=== PATIENT | female | born 1975 | race Caucasian/White ===

== ENCOUNTER 2017-01-25 01:07 | Inpatient (IN) | payer MEDICARE, OTHER ==
[2017-01-25 01:07] VITALS: PULSE 79; BMI 41.3
--- NOTE | 2017-01-25 01:32 | C.PDOC ---
History Of Present Illness Patient is a 41 year old female who presents to the ER with a complaint of waking up with shortness of breath that began at 23:00 yesterday. Patient states she has a history of asthma. Patient denies any nausea, vomiting, fever, or chest pain. Chief Complaint (Nursing): Respiratory Distress History Per: Patient Onset/Duration Of Symptoms: Hrs (23:00 yesterday) Current Symptoms Are (Timing): Still Present Associated Symptoms: denies: Fever, Chest Pain Past Medical History Vital Signs: Last Vital Signs Temp 97 F L 01/25/17 01:18 Pulse 107 H 01/25/17 01:18 Resp 37 H 01/25/17 01:25 BP 137/94 H 01/25/17 01:18 Pulse Ox 78 L 01/25/17 03:34 - Medical History PMH: Anxiety, Asthma, Cardia Arrhythmia, CHF, Fibromyalgia, HTN, Hypercholesterolemia, Paranoia Surgical History: Appendectomy, Cholecystectomy - [facility] Procedures OCCUPATIONAL THERAPY (02/09/14) PHYSICAL THERAPY NEC (02/03/14) Family History: States: Unknown Family Hx, Diabetes, Hypertension - Social History Hx Tobacco Use: No Hx Alcohol Use: No Hx Substance Use: No - Immunization History Hx Tetanus Toxoid Vaccination: No Hx Influenza Vaccination: No Hx Pneumococcal Vaccination: No Review Of Systems Except As Marked, All Systems Reviewed And Found Negative. Constitutional: Negative for: Fever, Chills Cardiovascular: Negative for: Chest Pain, Palpitations Respiratory: Positive for: Shortness of Breath. Negative for: Cough Gastrointestinal: Negative for: Nausea, Vomiting, Diarrhea Physical Exam - Physical Exam Appears: Non-toxic Skin: Normal Color, Warm, Dry Head: Atraumatic, Normacephalic Oral Mucosa: Moist Throat: Normal Neck: Normal, Normal ROM Chest: Symmetrical Cardiovascular: Rhythm Regular Respiratory: Rhonchi (Bilateral), Wheezing (Bilateral), Other (Mild shortness of breath) Gastrointestinal/Abdominal: Soft, No Tenderness Neurological/Psych: Oriented x3, Normal Speech, Normal Cognition ED Course And Treatment - Laboratory Results Result Diagrams: 01/25/17 01:45 01/25/17 01:45 ECG: Interpreted By Me, Viewed By Me ECG Rhythm: Sinus Tachycardia (101 bpm), L BBB ECG Interpretation: Abnormal Interpretation Of ECG: Possible left atrial enlargement O2 Sat by Pulse Oximetry: 78 - CT Scan/US CT of chest w/o contrast Other Rad Studies (CT/US): Read By Radiologist CT/US Interpretation: IMPRESSION: 1. Findings compatible with asymmetric pulmonary edema. 2. Bibasilar atelectasis and/or pneumonia. 3. Edema within upper abdominal wall, RIGHT greater than LEFT. 4. Incidental/non-acute findings are described above. Progress Note: EKG, blood work, chest x-ray, nebulizer treatment, and peak flow pre/post tx ordered. Albuterol INH and solu-medrol administered. Disposition Discussed With : Jassi Guzman Doctor Will See Patient In The: Hospital Counseled Patient/Family Regarding: Diagnosis - Disposition Disposition: HOSPITALIZED Disposition Time: 05:04 Condition: STABLE - POA Present On Arrival: None - Clinical Impression Clinical Impression: Dyspnea, Pulmonary edema - Scribe Statement The provider has reviewed the documentation as recorded by the Scribe Jonathan Tang All medical record entries made by the Scribe were at my direction and personally dictated by me. I have reviewed the chart and agree that the record accurately reflects my personal performance of the history, physical exam, medical decision making, and the department course for this patient. I have also personally directed, reviewed, and agree with the discharge instructions and disposition.
[2017-01-25] MEDS ORDERED: Albuterol-Ipratrop 3 mg / 0.5 (3 ml) UD INH STA (01:42)
[2017-01-25 01:48] LABS: BASO # 0.1 K/uL (0.0-0.2); BASO % 0.7 % (0.0-2.0); EOS # 0.5 K/uL (0.0-0.7); HEMATOCRIT 33.7 % (34.0-47.0); LYMPH # 1.8 K/uL (1.0-4.3); LYMPH % 14.8 % (20.0-40.0); MEAN CELL VOLUME 78.2 fL (81.0-99.0); MEAN CORPUSCULAR HEMOGLOBIN 25.1 pg (27.0-31.0); MEAN CORPUSCULAR HGB CONC 32.1 g/dL (33.0-37.0); MEAN PLATELET VOLUME 8.4 fL (7.2-11.7); MONO # 0.6 K/uL (0.0-0.8); MONO % 5.3 % (0.0-10.0); RED CELL DISTRIBUTION WIDTH 14.6 % (11.5-14.5); WHITE BLOOD COUNT 12.2 K/uL (4.8-10.8)
[2017-01-25 01:57] LABS: CHLORIDE 97 mmol/L (98-107); SODIUM 131 mmol/L (132-148)
[2017-01-25 01:59] LABS: AST/SGOT 60 U/L (14-36); BILIRUBIN,TOTAL 0.6 mg/dL (0.2-1.3); CARBON DIOXIDE 24 mmol/L (22-30); GFR AFRICAN-AMERICAN > 60
[2017-01-25 02:00] LABS: ALB/GLOB RATIO 0.9 (1.0-2.1); ALKALINE PHOSPHATASE 84 U/L (38-126); ALT/SGPT 78 U/L (9-52); BLOOD UREA NITROGEN 13 mg/dL (7-17); CALCIUM 7.9 mg/dl (8.6-10.4); GLUCOSE,RANDOM 104 mg/dL (65-105); TOTAL PROTEIN 6.9 g/dL (6.3-8.3)
[2017-01-25] MEDS ORDERED: Albuterol-Ipratrop 3 mg / 0.5 (3 ml) UD ONE (02:18)
[2017-01-25 02:59] LABS: INR 1.1
--- NOTE | 2017-01-25 03:31 | CT ---
EXAM: CT Chest Without Intravenous Contrast CLINICAL HISTORY: 41 years old, female; Signs and symptoms; Shortness of breath; Additional info: Sob/pleural effusion? / infiltrater? TECHNIQUE: Axial computed tomography images of the chest without intravenous contrast. This CT exam was performed using one or more of the following dose reduction techniques: automated exposure control, adjustment of the mA and/or kV according to patient size, and/or use of iterative reconstruction technique. Coronal and sagittal reformatted images were created and reviewed. COMPARISON: CT - CHEST W/O CONTRAST 12/02/2015 2:02:36 PM FINDINGS: Lungs: Mosaic pattern of lung parenchyma with scattered groundglass opacities, RIGHT greater than LEFT. Interlobular septal thickening. Mild patchy peripheral airspace disease within lower lobes. Pleural space: Small bilateral pleural effusions. No pneumothorax. Heart: No cardiomegaly. No significant pericardial effusion. Bones/joints: No acute fracture. Soft tissues: Fluid/stranding within lateral upper abdominal wall, RIGHT greater than LEFT. Vasculature: Unremarkable. No thoracic aortic aneurysm. Lymph nodes: No pathologically enlarged lymph nodes. Liver: Fatty infiltration. Gallbladder and bile ducts: Cholecystectomy. Kidneys and ureters: Small calculus within RIGHT kidney. Stomach and bowel: Postsurgical changes about stomach. IMPRESSION: 1. Findings compatible with asymmetric pulmonary edema. 2. Bibasilar atelectasis and/or pneumonia. 3. Edema within upper abdominal wall, RIGHT greater than LEFT. 4. Incidental/non-acute findings are described above.
[2017-01-25] MEDS ORDERED: Iodixanol 320 MG/ML 100 ML BOTTLE IV ONE (04:27)
--- NOTE | 2017-01-25 05:01 | CT ---
EXAM: CT Angiography Chest With Intravenous Contrast CLINICAL HISTORY: 41 years old, female; Signs and symptoms; Shortness of breath; Additional info: Sob/ elevated d -dimer TECHNIQUE: Axial computed tomographic angiography images of the chest with intravenous contrast using pulmonary embolism protocol. This CT exam was performed using one or more of the following dose reduction techniques: automated exposure control, adjustment of the mA and/or kV according to patient size, and/or use of iterative reconstruction technique. MIP reconstructed images were created and reviewed. Coronal and sagittal reformatted images were created and reviewed. CONTRAST: 100 mL of [id number] administered intravenously. COMPARISON: CT - 2016 3:04 AM FINDINGS: Pulmonary arteries: No definite pulmonary embolism. Aorta: No aneurysm. No dissection. Lungs: Mosaic pattern of lung parenchyma with scattered groundglass/air space opacities, RIGHT greater than LEFT. Findings mildly increased from previous examination. Pleural space: Small bilateral pleural effusions. No pneumothorax. Heart: Mild cardiomegaly. No significant pericardial effusion. Bones/joints: No acute fracture. No dislocation. Soft tissues: Fluid/stranding within lateral upper abdominal wall, RIGHT greater than LEFT. Lymph nodes: No pathologically enlarged lymph nodes. Liver: Fatty infiltration. Gallbladder and bile ducts: Cholecystectomy. Stomach and bowel: Surgical clips about stomach. IMPRESSION: 1. No definite CT evidence of pulmonary embolism. 2. Findings compatible with asymmetric pulmonary edema, mildly increased from previous examination. Superimposed pneumonia not excluded. 3. Incidental/non-acute findings are described above.
--- NOTE | 2017-01-25 06:50 | CP.PCM.HP ---
<Rica Leblanc - Last Filed: 01/25/17 07:44> History of Present Illness - History of Present Illness History of Present Illness: CC: "shortness of breath" 41 year old female with PMHx of lupus, CHF, HTN, fibromyalgia, kidney stones, depression presents with SOB. Patient reports she went to sleep at 7:30 pm last night with no issues and and woke up at 11 pm gasping for air. She admits this has happened in the past. She has not taken any of her medications for the past 2 weeks in "anticipation" of her bariatric surgery that took place 01/22/17. Patient admits to associated cough for 1 week that is productive of green phlegm. Denies leg swelling, fevers, chills, nausea, vomiting, sore throat, nasal congestion. She denies "heart chest pain", but admits to "lung chest pain " associated to pneumonia. Chest pain is present when she coughs and at rest. Pain is described as "soreness/burning" with no radiation. She denies sick contacts or recent travel. PMHx: lupus, CHF, HTN, fibromyalgia, kidney stones, depression. SHx: chucky (1997), laparascopy, lap band (2007), appendectomy (2008), lipoma resection, IVC filter 2003, knee arthroscopy 2012, c section 2005, tubal ligation (2012), ablation (2012), cath 2009, hysterectomy (2013). Allergies: Plaquenil. Social Hx: Denies tobacco, ETOH, drug abuse. Family Hx: mother with DM, maternal and paternal GM with DM. PMD: Dr. Mora Cardio: Dr. Montenegro Pulm: Dr. Olivares Present on Admission - Present on Admission Any Indicators Present on Admission: No Review of Systems - Constitutional Constitutional: absent: Chills, Fever - EENT Eyes: absent: Blurred Vision, Change in Vision - Cardiovascular Cardiovascular: Chest Pain, Chest Pain at Rest, Dyspnea, Dyspnea on Exertion. absent: Leg Edema, Palpitations - Respiratory Respiratory: Cough, Dyspnea, Dyspnea on Exertion, Wheezing - Gastrointestinal Gastrointestinal: Abdominal Pain. absent: Constipation, Diarrhea, Nausea, Vomiting - Genitourinary Genitourinary: absent: Difficulty Urinating, Dysuria - Musculoskeletal Musculoskeletal: absent: Numbness, Tingling - Integumentary Integumentary: Dry Skin. absent: New Lesions - Neurological Neurological: absent: Dizziness, Numbness, Headaches, Tingling, Weakness - Endocrine Endocrine: absent: Fatigue, Palpitations Past Patient History - Infectious Disease Hx of Infectious Diseases: None - Past Medical History & Family History Past Medical History?: Yes - Past Social History Smoking Status: Never Smoked - CARDIAC Hx Cardia Arrhythmia: Yes Hx Congestive Heart Failure: Yes Hx Hypercholesterolemia: Yes Hx Hypertension: Yes - PULMONARY Hx Asthma: Yes - NEUROLOGICAL Hx Neurological Disorder: No - HEENT Hx HEENT Problems: No - ENDOCRINE/METABOLIC Hx Endocrine Disorders: Yes Hx Diabetes Mellitus Type 2: Yes (??) Hx Systemic Lupus Erythematosus: Yes - HEMATOLOGICAL/ONCOLOGICAL Hx Blood Disorders: No - INTEGUMENTARY Hx Dermatological Problems: Yes Hx Eczema: Yes - MUSCULOSKELETAL/RHEUMATOLOGICAL Hx Musculoskeletal Disorders: Yes - GASTROINTESTINAL Hx Gastrointestinal Disorders: No - GENITOURINARY/GYNECOLOGICAL Hx Genitourinary Disorders: No - PSYCHIATRIC Hx Anxiety: Yes Hx Paranoia: Yes Hx Substance Use: No - SURGICAL HISTORY Hx Appendectomy: Yes Hx Cholecystectomy: Yes - ANESTHESIA Hx Anesthesia: Yes Hx Anesthesia Reactions: Yes (Developed rash 2and 1/2 weeks after hip surgery similair to now) Hx Malignant Hyperthermia: No Meds Allergies/Adverse Reactions: Allergies Allergy/AdvReac Type Severity Reaction Status Date / Time propofol Allergy Intermediate RASH Verified 01/27/17 12:38 hydroxychloroquine sulfate Allergy RASH Verified 01/25/17 13:17 [From Plaquenil] FRUITS Allergy Mild SHORTNESS Uncoded 01/25/17 13:17 OF BREATH "anastesia" Allergy RASH Uncoded 01/25/17 13:17 Physical Exam - Constitutional Appears: No Acute Distress - Head Exam Head Exam: NORMAL INSPECTION, NORMOCEPHALIC - Eye Exam Eye Exam: EOMI, Normal appearance Pupil Exam: NORMAL ACCOMODATION - ENT Exam ENT Exam: Mucous Membranes Moist, Normal Exam - Neck Exam Neck exam: Positive for: Full Rom, Normal Inspection - Respiratory Exam Respiratory Exam: Rales, Rhonchi. absent: Wheezes - Cardiovascular Exam Cardiovascular Exam: REGULAR RHYTHM, +S1, +S2 - GI/Abdominal Exam GI & Abdominal Exam: Normal Bowel Sounds, Soft. absent: Distended, Tenderness - Extremities Exam Extremities exam: Positive for: full ROM, normal inspection. Negative for: tenderness - Back Exam Back exam: NORMAL INSPECTION - Neurological Exam Neurological exam: Alert, Oriented x3 - Psychiatric Exam Psychiatric exam: Normal Affect, Normal Mood - Skin Skin Exam: Dry, Normal Color, Warm Results - Vital Signs Recent Vital Signs: Last Vital Signs Temp 97 F L 01/25/17 01:18 Pulse 94 H 01/25/17 06:11 Resp 23 01/25/17 06:11 BP 118/75 01/25/17 06:11 Pulse Ox 99 01/25/17 06:11 - Labs Result Diagrams: 01/25/17 01:45 01/25/17 01:45 Assessment & Plan (1) CHF exacerbation Assessment and Plan: Patient with history of CHF, off meds for 2 weeks. Pro BNP on admission 2220. CXR shows cardiomegaly. f/u ECHO. ECHO 08/2015 showed EF ~50%. Start the following medications: Lasix 60 mg IVP daily Coreg 25 mg PO BID Losartan 100 mg PO daily I/O's Daily weights Low Sodium Diet Status: Acute (2) Chest pain Assessment and Plan: PEDRO on admission negative. EKG on admission- sinus tach 101 bpm, LBBB. f/u PEDRO X2 Q8H f/u EKG X2 Q8H ASA 325 mg PO daily Coreg 25 mg PO BID Status: Acute (3) Dyspnea Assessment and Plan: D- Dimer elevated. Chest CTA: 1. No definite CT evidence of pulmonary embolism. 2. Findings compatible with asymmetric pulmonary edema, mildly increased from previous examination. Superimposed pneumonia not excluded. 3. Incidental/non- acute findings are described above. Status: Acute (4) Elevated LFTs Assessment and Plan: f/u hep panel Status: Acute (5) H/O systemic lupus erythematosus (SLE) Assessment and Plan: Continue home med: Azathioprine 50 mg PO daily. Status: Acute (6) HTN (hypertension) Assessment and Plan: Start the following medications: Lasix 60 mg IVP daily Coreg 25 mg PO BID (home med) Losartan 100 mg PO daily (home med) Status: Acute (7) Depression Assessment and Plan: Effexor 225 mg PO Daily [id number] mg PO HS Trazodone 50 mg PO HS Status: Acute (8) Anxiety Assessment and Plan: Ativan 1 mg PO TID PRN (Patient takes 2 mg PO BID as home med) Status: Acute (9) History of fibromyalgia Assessment and Plan: Resume home med: Tramadol 50 mg PO TID Status: Acute (10) Prophylactic measure Assessment and Plan: Heparin SC Q12H Pepcid 20 mg PO BID Status: Acute <Jassi Guzman - Last Filed: 02/01/17 19:26> Results - Vital Signs Recent Vital Signs: Last Vital Signs Temp 98.2 F 01/28/17 15:00 Pulse 70 01/28/17 16:00 Resp 20 01/28/17 15:00 BP 101/66 01/28/17 15:00 Pulse Ox 98 01/28/17 15:00 - Labs Result Diagrams: 01/28/17 07:09 01/28/17 07:09 Assessment & Plan - Date & Time Date: 02/01/17 (I have seen and examined the patient. I agree with the findings and plan of care as documented by Dr. Leblanc. Patient with chf exacerbation and chest pain. Also with complaints of SOB. IV lasix. Continue home meds. 2D Echo. ROMIx3 with EKG. Aspirin and Statin. D-dimer elevated. CT angio negative. Monitor for acute changes.) Time: 19:25 Attending/Attestation - Attestation I have personally seen and examined this patient.: Yes I have fully participated in the care of the patient.: Yes I have reviewed all pertinent clinical information: Yes
[2017-01-25] MEDS ORDERED: guaiFENesin DM 200 mg-20 mg/10 ml UD PO PRN (07:53)
--- NOTE | 2017-01-25 08:29 | RAD ---
PROCEDURE: CHEST RADIOGRAPH, 1 VIEW HISTORY: Shortness of breath COMPARISON: 12/23/2016 FINDINGS: LUNGS: Moderate to severe venous congestion with bibasilar airspace opacities. PLEURA: As above. CARDIOVASCULAR: Cardiomegaly. OSSEOUS STRUCTURES: Calcific tendinopathy of the bilateral proximal humeri. VISUALIZED UPPER ABDOMEN: Normal. OTHER FINDINGS: None. IMPRESSION: Moderate to severe venous congestion with bibasilar airspace opacities.
--- NOTE | 2017-01-25 09:13 | CP.PCM.PN ---
<Efra Bowers - Last Filed: 01/25/17 20:29> Subjective - Date & Time of Evaluation Date of Evaluation: 01/25/17 Time of Evaluation: 08:00 - Subjective Subjective: PGY1 Medicine Note Patient seen and examined at bedside. Newly admitted at 7am. Patient with history of asthma, admits to associated cough for 1 week that is productive of green phlegm. C/o chest pain with coughing, described as "soreness/burning" with no radiation. Patient also admits to recent gastric bypass surgery on - admits she was advised by bariatric surgeon to consume low volumes of clear liquids for the next 1-2 weeks (30cc every 15minutes). Denies leg swelling , fevers, chills, nausea, vomiting, sore throat, nasal congestion. Denies sick contacts or recent travel. Objective - Vital Signs/Intake and Output Vital Signs (last 24 hours): Temp Pulse Resp BP Pulse Ox 97.8 F 96 H 20 118/75 96 01/25/17 07:25 01/25/17 07:25 01/25/17 07:25 01/25/17 07:25 01/25/17 07:25 Intake and Output: 01/25/17 01/25/17 06:59 18:59 Output Total 2400 Balance -2400 - Medications Medications: Current Medications Aspirin (Aspirin) 325 mg PO DAILY [facility] Azathioprine (Imuran) 50 mg PO DAILY [facility] Carvedilol (Coreg) 25 mg PO BID [facility] Famotidine (Pepcid) 20 mg PO BID [facility] Furosemide (Lasix) 60 mg IVP DAILY [facility] Gabapentin (Neurontin) 600 mg PO TID [facility] Guaifenesin/Dextromethorphan (Robitussin Dm) 10 ml PO Q4H PRN PRN Reason: Cough and congestion Heparin Sodium (Porcine) (Heparin) 5,000 units SC Q12 [facility] Lorazepam (Ativan) 1 mg PO TID PRN PRN Reason: Anxiety Losartan Potassium (Cozaar) 100 mg PO DAILY [facility] Ondansetron HCl (Zofran Inj) 4 mg IVP Q6 PRN PRN Reason: Nausea/Vomiting Tramadol HCl (Ultram) 50 mg PO TID PRN PRN Reason: pain Trazodone HCl (Desyrel) 50 mg PO HS [facility] Venlafaxine HCl (Effexor Xr) 225 mg PO DAILY [facility] Zolpidem Tartrate (Ambien) 10 mg PO HS [facility] - Labs Labs: PT 11.9 SECONDS (9.7-12.2) 01/25/17 01:45 INR 1.1 01/25/17 01:45 APTT 34 SECONDS (21-34) 01/25/17 01:45 - Additional Findings Additional findings: - Constitutional Appears: No Acute Distress - Head Exam Head Exam: NORMAL INSPECTION, NORMOCEPHALIC - Eye Exam Eye Exam: EOMI, Normal appearance Pupil Exam: NORMAL ACCOMODATION - ENT Exam ENT Exam: Mucous Membranes Moist, Normal Exam - Neck Exam Neck exam: Positive for: Full Rom, Normal Inspection - Respiratory Exam Respiratory Exam: Rales, Rhonchi. absent: Wheezes - Cardiovascular Exam Cardiovascular Exam: REGULAR RHYTHM, +S1, +S2 - GI/Abdominal Exam GI & Abdominal Exam: Normal Bowel Sounds, Soft. absent: Distended, Tenderness - Extremities Exam Extremities exam: Positive for: full ROM, normal inspection. Negative for: tenderness - Back Exam Back exam: NORMAL INSPECTION - Neurological Exam Neurological exam: Alert, Oriented x3 - Psychiatric Exam Psychiatric exam: Normal Affect, Normal Mood - Skin Skin Exam: Dry, Normal Color, Warm Assessment and Plan - Assessment and Plan (Free Text) Assessment: CHF exacerbation 01/25: f/u ECHO (pending read) Patient with history of CHF, off meds for 2 weeks. Pro BNP on admission 2220. CXR shows cardiomegaly. ECHO 08/2015 showed EF ~50%. Start the following medications: Lasix 60 mg IVP daily, Coreg 25 mg PO BID, Losartan 100 mg PO daily I/O's, Daily weights, Low Sodium Diet Status: Acute Chest pain f/u 3rd PEDRO/EKG Cardiology Consult, Dr. Montenegro, f/u recs PEDRO on admission negative. EKG on admission- sinus tach 101 bpm, LBBB. PEDRO/EKG - negative x2 STOP ASA 325 mg PO daily Coreg 25 mg PO BID Status: Acute Dyspnea -Consult Pulmonology, Dr. Olivares, f/u recs D- Dimer elevated. Chest CTA: 1. No definite CT evidence of pulmonary embolism. 2. Findings compatible with asymmetric pulmonary edema, mildly increased from previous examination. Superimposed pneumonia not excluded. 3. Incidental/non- acute findings are described above. Status: Acute Bariatric surgery -Recent gastric bypass surgery on 01/22/17 -Pt advised by bariatric surgeon to consume low volumes of clear liquids for the next 1-2 weeks (30cc every 15minutes). -CLD -HOLD anticoagulation for 7 days s/p bariatric surgery (may resume 01/29) -Hold ASA -Hold Heparin Elevated LFTs 01/25: Hep panel negative for HepA, B, or C Status: Acute HTN (hypertension) Start the following medications: Lasix 60 mg IVP daily Coreg 25 mg PO BID (home med) Losartan 100 mg PO daily (home med) Status: Acute Depression Effexor 225 mg PO Daily [id number] mg PO HS Trazodone 50 mg PO HS Status: Acute Anxiety Ativan 1 mg PO TID PRN (Patient takes 2 mg PO BID as home med) Status: Acute H/O systemic lupus erythematosus (SLE) Continue home med: Azathioprine 50 mg PO daily. Status: Acute History of fibromyalgia Resume home med: Tramadol 50 mg PO TID Status: Acute Prophylactic measure Heparin SC Q12H Pepcid 20 mg PO BID Status: Acute <Efra Herrera H - Last Filed: 01/26/17 12:53> Objective - Vital Signs/Intake and Output Vital Signs (last 24 hours): Temp Pulse Resp BP Pulse Ox 98.0 F 56 L 22 96/57 L 99 01/26/17 12:00 01/26/17 08:00 01/26/17 08:00 01/26/17 11:12 01/26/17 08:00 Intake and Output: 01/26/17 01/26/17 06:59 18:59 Intake Total 0 Output Total 600 Balance -600 - Medications Medications: Current Medications Aspirin (Aspirin) 325 mg PO DAILY [facility] Last Admin: 01/25/17 11:34 Dose: Not Given Azathioprine (Imuran) 50 mg PO DAILY [facility] Last Admin: 01/26/17 10:16 Dose: Not Given Carvedilol (Coreg) 25 mg PO BID [facility] Last Admin: 01/26/17 11:12 Dose: 25 mg Famotidine (Pepcid) 20 mg PO BID [facility] Last Admin: 01/26/17 10:16 Dose: 20 mg Folic Acid (Folic Acid) 1 mg PO DAILY [facility] Last Admin: 01/26/17 10:16 Dose: 1 mg Furosemide (Lasix) 60 mg IVP DAILY [facility] Last Admin: 01/26/17 10:31 Dose: 60 mg Gabapentin (Neurontin) 600 mg PO TID [facility] Last Admin: 01/26/17 10:15 Dose: 600 mg Guaifenesin/Dextromethorphan (Robitussin Dm) 10 ml PO Q4H PRN PRN Reason: Cough and congestion Heparin Sodium (Porcine) (Heparin) 5,000 units SC Q12 [facility] Last Admin: 01/25/17 11:36 Dose: Not Given Lorazepam (Ativan) 1 mg PO TID PRN PRN Reason: Anxiety Losartan Potassium (Cozaar) 100 mg PO DAILY [facility] Last Admin: 01/26/17 11:13 Dose: 100 mg Multivitamins/Minerals (Therapeutic-M Tab) 1 tab PO DAILY [facility] Last Admin: 01/26/17 11:15 Dose: 1 tab Ondansetron HCl (Zofran Inj) 4 mg IVP Q6 PRN PRN Reason: Nausea/Vomiting Last Admin: 01/25/17 16:15 Dose: 4 mg Tramadol HCl (Ultram) 50 mg PO TID PRN PRN Reason: pain Last Admin: 01/26/17 10:15 Dose: 50 mg Trazodone HCl (Desyrel) 50 mg PO HS [facility] Last Admin: 01/25/17 21:45 Dose: 50 mg Venlafaxine HCl (Effexor Xr) 225 mg PO DAILY [facility] Last Admin: 01/26/17 10:16 Dose: 225 mg Zolpidem Tartrate (Ambien) 10 mg PO HS [facility] Last Admin: 01/25/17 21:42 Dose: 10 mg - Labs Labs: 01/26/17 06:38 01/26/17 04:00 PT 11.9 SECONDS (9.7-12.2) 01/25/17 01:45 INR 1.1 01/25/17 01:45 APTT 34 SECONDS (21-34) 01/25/17 01:45 Attending/Attestation - Attestation I have personally seen and examined this patient.: Yes I have fully participated in the care of the patient.: Yes I have reviewed all pertinent clinical information, including history, physical exam and plan: Yes Notes (Text): Medical Attending: Patient was seen and examined by me. Agree with the above note by resident. She has had a recent gastric bypass sugery done and from what I understand has been off her medication for some time now. She explains to us she normally takes furosemide daily, however has not taken it during this time. Will check echo, add lasix IV. Also cardiology and pulmonology evaluation thank you Efra Herrera
[2017-01-25] MEDS: Venlafaxine 75 mg ER Cap PO SCH (11:52)
[2017-01-25] MEDS ORDERED: Thiamine 100 mg/ml Inj IV ONE ×2 (12:25→14:15)
[2017-01-25] MEDS: Multivitamin With Minerals Tab PO SCH (14:16)
--- NOTE | 2017-01-25 22:24 | CARD ---
APPROVED REPORT EKG Measurement Heart [id number] <Conclusion> Normal sinus rhythm Possible Left atrial enlargement Left bundle branch block Abnormal ECG
--- NOTE | 2017-01-25 22:26 | CARD ---
APPROVED REPORT EKG Measurement Heart [id number] <Conclusion> Sinus tachycardia Possible Left atrial enlargement Left bundle branch block Abnormal ECG
[2017-01-26 06:50] LABS: CHLORIDE 93 mmol/L (98-107)
[2017-01-26 06:51] LABS: POTASSIUM 3.6 mmol/L (3.6-5.2); SODIUM 135 mmol/L (132-148)
[2017-01-26 06:52] LABS: BASO % 0.3 % (0.0-2.0); EOS # 0.1 K/uL (0.0-0.7); LYMPH # 1.3 K/uL (1.0-4.3); LYMPH % 9.8 % (20.0-40.0); MEAN CORPUSCULAR HEMOGLOBIN 24.9 pg (27.0-31.0); MEAN CORPUSCULAR HGB CONC 31.5 g/dL (33.0-37.0); MEAN PLATELET VOLUME 8.8 fL (7.2-11.7); MONO # 0.9 K/uL (0.0-0.8); MONO % 7.1 % (0.0-10.0); PLATELET COUNT 407 K/uL (130-400); WHITE BLOOD COUNT 12.9 K/uL (4.8-10.8)
[2017-01-26 06:52] LABS: CHOLESTEROL 173 mg/dL (0-199)
[2017-01-26 06:53] LABS: ALB/GLOB RATIO 1.1 (1.0-2.1); ALKALINE PHOSPHATASE 72 U/L (38-126); ALT/SGPT 51 U/L (9-52); AST/SGOT 23 U/L (14-36); BILIRUBIN,TOTAL 0.3 mg/dL (0.2-1.3); BLOOD UREA NITROGEN 11 mg/dL (7-17); CALCIUM 8.1 mg/dl (8.6-10.4); CARBON DIOXIDE 30 mmol/L (22-30); GFR AFRICAN-AMERICAN > 60; GLUCOSE,RANDOM 103 mg/dL (65-105); MAGNESIUM 2.5 mg/dL (1.6-2.3); TOTAL PROTEIN 6.5 g/dL (6.3-8.3)
[2017-01-26 07:25] LABS: THYROID STIMULATING HORMONE 0.31 mIU/L (0.46-4.68)
--- NOTE | 2017-01-26 07:56 | CP.PCM.PN ---
<Efra Bowers - Last Filed: 01/26/17 17:31> Subjective - Date & Time of Evaluation Date of Evaluation: 01/26/17 Time of Evaluation: 07:20 - Subjective Subjective: PGY1 Medicine Note Patient seen and examined at bedside. No overnight events per nursing. Patient reports improving cough and associate chest pain with cough. Patient with recent gastric bypass surgery on 01/22/17. Reports mild constipation. Tolerating CLD, will advance to bariatric diet. Denies leg swelling, fevers, chills, nausea , vomiting, sore throat, nasal congestion. Objective - Vital Signs/Intake and Output Vital Signs (last 24 hours): Temp Pulse Resp BP Pulse Ox 97.8 F 61 20 93/45 L 95 01/26/17 04:00 01/26/17 04:00 01/26/17 04:00 01/26/17 00:00 01/26/17 04:00 Intake and Output: 01/26/17 01/26/17 06:59 18:59 Intake Total 0 Output Total 600 Balance -600 - Medications Medications: Current Medications Aspirin (Aspirin) 325 mg PO DAILY [facility] Last Admin: 01/25/17 11:34 Dose: Not Given Azathioprine (Imuran) 50 mg PO DAILY [facility] Last Admin: 01/25/17 11:53 Dose: Not Given Carvedilol (Coreg) 25 mg PO BID [facility] Last Admin: 01/25/17 17:14 Dose: 25 mg Famotidine (Pepcid) 20 mg PO BID [facility] Last Admin: 01/25/17 17:14 Dose: 20 mg Folic Acid (Folic Acid) 1 mg PO DAILY [facility] Last Admin: 01/25/17 14:18 Dose: 1 mg Furosemide (Lasix) 60 mg IVP DAILY [facility] Gabapentin (Neurontin) 600 mg PO TID [facility] Last Admin: 01/25/17 17:15 Dose: Not Given Guaifenesin/Dextromethorphan (Robitussin Dm) 10 ml PO Q4H PRN PRN Reason: Cough and congestion Heparin Sodium (Porcine) (Heparin) 5,000 units SC Q12 [facility] Last Admin: 01/25/17 11:36 Dose: Not Given Lorazepam (Ativan) 1 mg PO TID PRN PRN Reason: Anxiety Losartan Potassium (Cozaar) 100 mg PO DAILY [facility] Last Admin: 04/03/17 11:34 Dose: 100 mg Multivitamins/Minerals (Therapeutic-M Tab) 1 tab PO DAILY [facility] Last Admin: 01/25/17 14:16 Dose: 1 tab Ondansetron HCl (Zofran Inj) 4 mg IVP Q6 PRN PRN Reason: Nausea/Vomiting Last Admin: 01/25/17 16:15 Dose: 4 mg Tramadol HCl (Ultram) 50 mg PO TID PRN PRN Reason: pain Last Admin: 01/25/17 21:45 Dose: 50 mg Trazodone HCl (Desyrel) 50 mg PO HS [facility] Last Admin: 01/25/17 21:45 Dose: 50 mg Venlafaxine HCl (Effexor Xr) 225 mg PO DAILY [facility] Last Admin: 01/25/17 11:52 Dose: 225 mg Zolpidem Tartrate (Ambien) 10 mg PO [facility] Last Admin: 01/25/17 21:42 Dose: 10 mg - Labs Labs: 01/26/17 06:38 01/26/17 04:00 PT 11.9 SECONDS (9.7-12.2) 01/25/17 01:45 INR 1.1 01/25/17 01:45 APTT 34 SECONDS (21-34) 01/25/17 01:45 - Additional Findings Additional findings: - Constitutional Appears: No Acute Distress - Head Exam Head Exam: NORMAL INSPECTION, NORMOCEPHALIC - Eye Exam Eye Exam: EOMI, Normal appearance Pupil Exam: NORMAL ACCOMODATION - ENT Exam ENT Exam: Mucous Membranes Moist, Normal Exam - Neck Exam Neck exam: Positive for: Full Rom, Normal Inspection - Respiratory Exam Respiratory Exam: Rales. absent: Rhonchi, Wheezes, Respiratory Distress. - Cardiovascular Exam Cardiovascular Exam: REGULAR RHYTHM, +S1, +S2 - GI/Abdominal Exam GI & Abdominal Exam: Normal Bowel Sounds, Soft. absent: Distended, Tenderness - Extremities Exam Extremities exam: Positive for: full ROM, normal inspection. Negative for: tenderness - Back Exam Back exam: NORMAL INSPECTION - Neurological Exam Neurological exam: Alert, Oriented x3 - Psychiatric Exam Psychiatric exam: Normal Affect, Normal Mood - Skin Skin Exam: Dry, Normal Color, Warm Assessment and Plan - Assessment and Plan (Free Text) Assessment: Acute on chronic systolic and diastolic heart failure, NYHA class 3 01/25: f/u ECHO (pending read) Cardiology Consult, Dr. Montenegro, f/u recs -recent evaluation of LV function last year showed LVEF 40%, EF from echo now consistent with previous cardomyopathy from a few years ago. -3 hospitalizations for likely dyspnea and possible heart failure. -recommend EP evaluation for possible BiVAICD. Will discuss external defibrillator if patient is not willing to proceed with AICD -Consider change to Entresto given Class 3 heart failure. -Patient with history of CHF, off meds for 2 weeks. Pro BNP on admission 2220. CXR shows cardiomegaly. ECHO 08/2015 showed EF ~50%. -Lasix 60 mg IVP daily -Coreg 25 mg PO BID -Losartan 100 mg PO daily I/O's, Daily weights, Low Sodium Diet Status: Acute Chest pain PEDRO/EKG - negative x3 Cardiology Consult, Dr. Montenegro, f/u recs PEDRO on admission negative. EKG on admission- sinus tach 101 bpm, LBBB. PEDRO/EKG - negative x2 STOP ASA 325 mg PO daily Coreg 25 mg PO BID Status: Acute Dyspnea 01/26: CT chest - mild pulmonary edema, edema in upper abdominal wall. see full report. -Consult Pulmonology, Dr. Olivares, f/u recs D- Dimer elevated. Chest CTA: 1. No definite CT evidence of pulmonary embolism. 2. Findings compatible with asymmetric pulmonary edema, mildly increased from previous examination. Superimposed pneumonia not excluded. 3. Incidental/non- acute findings are described above. Status: Acute Bariatric surgery -Recent gastric bypass surgery on 01/22/17 -Pt advised by bariatric surgeon to consume low volumes of clear liquids for the next 1-2 weeks (30cc every 15minutes). -Bariatric Diet -FA, MVI, Thiamine -HOLD anticoagulation for 7 days s/p bariatric surgery (may resume 01/29) -Hold ASA -Hold Heparin Elevated LFTs 01/25: Hep panel negative for HepA, B, or C Status: Acute HTN (hypertension) Start the following medications: Lasix 60 mg IVP daily Coreg 25 mg PO BID (home med) Losartan 100 mg PO daily (home med) Status: Acute Depression Effexor 225 mg PO Daily Ekekcq39 mg PO HS Trazodone 50 mg PO HS Status: Acute Anxiety Ativan 1 mg PO TID PRN (Patient takes 2 mg PO BID as home med) Status: Acute H/O systemic lupus erythematosus (SLE) Continue home med: Azathioprine 50 mg PO daily. Status: Acute History of fibromyalgia Resume home med: Tramadol 50 mg PO TID Status: Acute Prophylactic measure Heparin SC Q12H Pepcid 20 mg PO BID Colace 100mg PO BID for constipation Status: Acute <Efra Herrera H - Last Filed: 01/26/17 19:27> Objective - Vital Signs/Intake and Output Vital Signs (last 24 hours): Temp Pulse Resp BP Pulse Ox 97.3 F L 59 L 16 90/48 L 100 01/26/17 16:00 01/26/17 16:00 01/26/17 18:00 01/26/17 18:00 01/26/17 16:00 Intake and Output: 01/26/17 01/27/17 18:59 06:59 Intake Total 120 Output Total 400 Balance -280 - Medications Medications: Current Medications Aspirin (Aspirin) 325 mg PO DAILY [facility] Last Admin: 01/25/17 11:34 Dose: Not Given Azathioprine (Imuran) 50 mg PO DAILY [facility] Last Admin: 01/26/17 10:16 Dose: Not Given Carvedilol (Coreg) 25 mg PO BID [facility] Last Admin: 01/26/17 17:42 Dose: 25 mg Docusate Sodium (Colace) 100 mg PO BID [facility] Last Admin: 01/26/17 17:37 Dose: 100 mg Famotidine (Pepcid) 20 mg PO BID [facility] Last Admin: 01/26/17 10:16 Dose: 20 mg Folic Acid (Folic Acid) 1 mg PO DAILY [facility] Last Admin: 01/26/17 10:16 Dose: 1 mg Furosemide (Lasix) 60 mg IVP DAILY [facility] Last Admin: 01/26/17 10:31 Dose: 60 mg Gabapentin (Neurontin) 600 mg PO TID [facility] Last Admin: 01/26/17 17:37 Dose: 600 mg Guaifenesin/Dextromethorphan (Robitussin Dm) 10 ml PO Q4H PRN PRN Reason: Cough and congestion Heparin Sodium (Porcine) (Heparin) 5,000 units SC Q12 [facility] Last Admin: 01/25/17 11:36 Dose: Not Given Lorazepam (Ativan) 1 mg PO TID PRN PRN Reason: Anxiety Losartan Potassium (Cozaar) 100 mg PO DAILY [facility] Last Admin: 01/26/17 11:13 Dose: 100 mg Multivitamins/Minerals (Therapeutic-M Tab) 1 tab PO DAILY [facility] Last Admin: 01/26/17 11:15 Dose: 1 tab Ondansetron HCl (Zofran Inj) 4 mg IVP Q6 PRN PRN Reason: Nausea/Vomiting Last Admin: 01/25/17 16:15 Dose: 4 mg Thiamine HCl (Vitamin B1 Tab) 50 mg PO DAILY [facility] Tramadol HCl (Ultram) 50 mg PO TID PRN PRN Reason: pain Last Admin: 01/26/17 10:15 Dose: 50 mg Trazodone HCl (Desyrel) 50 mg PO HS [facility] Last Admin: 01/25/17 21:45 Dose: 50 mg Venlafaxine HCl (Effexor Xr) 225 mg PO DAILY [facility] Last Admin: 01/26/17 10:16 Dose: 225 mg Zolpidem Tartrate (Ambien) 10 mg PO HS [facility] Last Admin: 01/25/17 21:42 Dose: 10 mg - Labs Labs: PT 11.9 SECONDS (9.7-12.2) 01/25/17 01:45 INR 1.1 01/25/17 01:45 APTT 34 SECONDS (21-34) 01/25/17 01:45 Assessment and Plan - Assessment and Plan (Free Text) Assessment: Medical Attending: Patient was seen and examined by me. Agree with the above note by resident. Patient has been seen and evaluated by cardiology and pulmonolgy. She is on Lasix 60 QD as well as MELINDA and BB. Per cardiology she may need AICD in the future. She reported a lot of urination overnight and feeling better and easier breathing than before. thank you Efra Herrera
[2017-01-26 08:27] LABS: EOSINOPHIL 2 % (0-4); MYELOCYTE 2 % (0-0); NEUTROPHIL 70 % (50-75); TOTAL CELLS COUNTED 100
[2017-01-26 08:30] LABS: GIANT PLATELETS PRESENT; LARGE PLATELETS PRESENT
[2017-01-26] MEDS: Venlafaxine 75 mg ER Cap PO SCH (10:16)
[2017-01-26] MEDS: Multivitamin With Minerals Tab PO SCH (11:15)
--- NOTE | 2017-01-26 11:59 | CARD ---
APPROVED REPORT EXAM: Two-dimensional and M-mode echocardiogram with Doppler and color Doppler. Other Information Quality : Merlin rRhythm : INDICATION Chest Pain Congestive Heart Failure RISK FACTORS Hypertension M-Mode DIMENSIONS Left Atrium (MM)4.37 (2.5-4.0cm)IVSd0.66 (0.7-1.1cm) Aortic Root2.85 (2.2-3.7cm)LVDd6.82 (4.0-5.6cm) Aortic Cusp Exc.1.56 (1.5-2.0cm)PWd0.74 (0.7-1.1cm) FS (%) 13 %LVDs5.94 (2.0-3.8cm) LVEF (%)27 (>50%) Mitral Valve MV E Auahylpn874.7cm/sMV A Oeamyhta36.4cm/sE/A ratio2.0 TDI E/Lateral E'0.0E/Medial E'0.0 Tricuspid Valve TR Peak [id number]/sTR Peak Gr.[id number] LEFT VENTRICLE The Left Ventricle is moderately dilated. There is normal left ventricular wall thickness. Left ventricle systolic function is severely impaired. The Ejection Fraction is 25-30%. There is global hypokinesis of the left ventricle. The left ventricular diastolic function is normal. No left ventricle thrombus noted on this study. RIGHT VENTRICLE The right ventricle size is grossly normal. The right ventricular systolic function appears normal. ATRIA The left atrium is moderately dilated. The right atrium size is normal. AORTIC VALVE The aortic valve is trileaflet. No aortic regurgitation is present. There is no aortic valvular stenosis. There is no aortic valvular vegetation. MITRAL VALVE Mitral annular calcification is mild to moderate. There is no evidence of mitral valve prolapse. There is no mitral valve stenosis. Mitral regurgitation is mild to moderate. TRICUSPID VALVE The tricuspid valve is normal in structure. There is mild tricuspid regurgitation. There is no tricuspid valve prolapse or vegetation. There is no tricuspid valve stenosis. PULMONIC VALVE The pulmonic valve is not well visualized. There is no pulmonic valvular regurgitation. GREAT VESSELS The aortic root is normal in size. The IVC is normal in size and collapses >50% with inspiration. PERICARDIAL EFFUSION There is no pericardial effusion. There is no pleural effusion. <Conclusion> The Left Ventricle is moderately dilated. Left ventricle systolic function is severely impaired. The Ejection Fraction is 25-30%. There is global hypokinesis of the left ventricle. The left ventricular diastolic function is normal. The right ventricle size is grossly normal. The right ventricular systolic function appears normal. The left atrium is moderately dilated. The right atrium size is normal. Mitral regurgitation is mild to moderate. There is mild tricuspid regurgitation.
--- NOTE | 2017-01-26 12:15 | CP.PCM.CON ---
History of Present Illness - History of Present Illness History of Present Illness: I was asked to see patient by the primary team. The patient is a 41 year old female with a history of cardiomyopathy who presents with dyspnea. The patient initially was diagnosed with cardiomyopathy in 2009. She was placed on medical therapy and subsequent developed improvement in LV function. The patient had an echocardiogram in 2014 which showed EF 50%. The patient has a stress test in 2016 which revealed apical hypokinesis EF 40%. For the last 3 months she has been admitted to [facility] ([facility] for dyspnea. She most recently states that she developed weight gain and dyspnea with minimal exertion. Echocardiogram reveals severe LV dysfunction. The patient has an elevated pro BNP. Review of Systems - Constitutional Constitutional: absent: As Per HPI, Anorexia, Chills, Daytime Sleepiness, Excessive Sweating, Fatigue, Fever, Frequent Falls, Headache, Increased Appetite , Lethargy, Malaise, Night Sweats, Snoring, Sleep Apnea, Weight Gain, Weight Loss, Weakness, Other - EENT Eyes: absent: As Per HPI, Blind Spots, Blurred Vision, Change in Vision, Decreased Night Vision, Diplopia, Discharge, Dry Eye, Exophthalmos, Floaters, Irritation, Itchy Eyes, Loss of Peripheral Vision, Pain, Photophobia, Requires Corrective Lenses, Sees Flashes, Spots in Vision, Tunnel Vision, Other Visual Disturbances, Loss of Vision, Other Nose/Mouth/Throat: absent: As Per HPI, Epistaxis, Nasal Congestion, Nasal Discharge, Nasal Obstruction, Nasal Trauma, Nose Pain, Post Nasal Drip, Sinus Pain, Sinus Pressure, Bleeding Gums, Change in Voice, Dental Pain, Dry Mouth, Dysphagia, Halitosis, Hoarsness, Lip Swelling, Mouth Lesions, Mouth Pain, Odynophagia, Sore Throat, Throat Swelling, Tongue Swelling, Facial Pain, Neck Pain, Neck Mass, Other - Cardiovascular Cardiovascular: Dyspnea - Respiratory Respiratory: absent: As Per HPI, Cough, Dyspnea, Hemoptysis, Dyspnea on Exertion , Wheezing, Snoring, Stridor, Pain on Inspiration, Chest Congestion, Excessive Mucous Production, Change in Mucous Color, Pain with Coughing, Other - Gastrointestinal Gastrointestinal: absent: As Per HPI, Abdominal Pain, Belching, Bloating, Change in Bowel Habits, Change in Stool Character, Coffee Ground Emesis, Constipation, Cramping, Diarrhea, Dyspepsia, Dysphagia, Early Satiety, Excessive Flatus, Fecal Incontinence, Heartburn, Hematemesis, Hematochezia, Loose Stools, Melena, Nausea, Odynophagia, Temesmus, Vomiting, Other - Musculoskeletal Musculoskeletal: absent: As Per HPI, Abnormal Gait, Arthralgias, Atrophy, Back Pain, Deformity, Joint Swelling, Limited Range of Motion, Loss of Height, Muscle Cramps, Muscle Weakness, Myalgias, Neck Pain, Numbness, Radiating Pain into Limb, Stiffness, Tingling, Other - Integumentary Integumentary: absent: As Per HPI, Acne, Alopecia, Bleeding Lesions, Change in Hair, Change in Nails, Change in Pigmentation, Changing Lesions, Dry Skin, Erythema, Furuncle, Hirsutism, Lesions, New Lesions, Non-Healing Lesions, Photosensitivity, Pruritus, Rash, Skin Pain, Skin Ulcer, Sores, Striae, Swelling , Unusual Bruising, Wounds, Jaundice, Other - Neurological Neurological: absent: As Per HPI, Abnormal Gait, Abnormal Hearing, Abnormal Movements, Abnormal Speech, Behavioral Changes, Burning Sensations, Confusion, Convulsions, Disequilibrium, Dizziness, Numbness, Focal Weakness, Frequent Falls , Headaches, Lack of Coordination, Loss of Vision, Memory Loss, Paresthesias, Radicular Pain, Restless Legs, Sensory Deficit, Syncope, Tingling, Tremor, Vertigo, Weakness, Other Visual Disturbances, Other - Psychiatric Psychiatric: absent: As Per HPI, Abnormal Sleep Pattern, Anhedonia, Anxiety, Auditory Hallucinations, Behavioral Changes, Change in Appetite, Change in Libido, Confusion, Depression, Difficulty Concentrating, Hallucinations, Homicidal Ideation, Hopelessness, Irritability, Memory Loss, Mood Swings, Panic Attacks, Paranoia, Suicidal Ideation, Visual Hallucinations, Tactile Hallucinations, Other - Endocrine Endocrine: absent: As Per HPI, Change in Body Appearance, Change in Libido, Cold Intolorance, Deepening of Voice, Excessive Sweating, Fatigue, Flushing, Heat Intolorance, Increase in Ring/Shoe/Hat Size, Palpitations, Polydipsia, Polyphagia, Polyuria, Other - Hematologic/Lymphatic Hematologic: absent: As Per HPI, Easy Bleeding, Easy Bruising, Lymphadenopathy, Other Past Patient History - Infectious Disease Hx of Infectious Diseases: None - Past Medical History & Family History Past Medical History?: Yes - Past Social History Smoking Status: Never Smoked - CARDIAC Hx Cardia Arrhythmia: Yes Hx Congestive Heart Failure: Yes Hx Hypercholesterolemia: Yes Hx Hypertension: Yes - PULMONARY Hx Asthma: Yes - NEUROLOGICAL Hx Neurological Disorder: No - HEENT Hx HEENT Problems: No - RENAL Hx Chronic Kidney Disease: No - ENDOCRINE/METABOLIC Hx Endocrine Disorders: Yes Hx Diabetes Mellitus Type 2: Yes (??) Hx Systemic Lupus Erythematosus: Yes - HEMATOLOGICAL/ONCOLOGICAL Hx Blood Disorders: No - INTEGUMENTARY Hx Dermatological Problems: Yes Hx Eczema: Yes - MUSCULOSKELETAL/RHEUMATOLOGICAL Hx Musculoskeletal Disorders: Yes Hx Falls: No Other/Comment: HIP REPLACEMENT 2014 - GASTROINTESTINAL Hx Gastrointestinal Disorders: No - GENITOURINARY/GYNECOLOGICAL Hx Genitourinary Disorders: No - PSYCHIATRIC Hx Anxiety: Yes Hx Paranoia: Yes Hx Substance Use: No - SURGICAL HISTORY Hx Appendectomy: Yes Hx Cholecystectomy: Yes Hx Gastric Bypass Surgery: Yes Other/Comment: HIP REPLACEMENT X3 - ANESTHESIA Hx Anesthesia: Yes Hx Anesthesia Reactions: Yes (Developed rash 2and 1/2 weeks after hip surgery similair to now) Hx Malignant Hyperthermia: No Meds Allergies/Adverse Reactions: Allergies Allergy/AdvReac Type Severity Reaction Status Date / Time hydroxychloroquine sulfate Allergy RASH Verified 01/25/17 13:17 [From Plaquenil] FRUITS Allergy Mild SHORTNESS Uncoded 01/25/17 13:17 OF BREATH "anastesia" Allergy RASH Uncoded 01/25/17 13:17 - Medications Medications: Current Medications Aspirin (Aspirin) 325 mg PO DAILY [facility] Last Admin: 01/25/17 11:34 Dose: Not Given Azathioprine (Imuran) 50 mg PO DAILY [facility] Last Admin: 01/26/17 10:16 Dose: Not Given Carvedilol (Coreg) 25 mg PO BID [facility] Last Admin: 01/26/17 11:12 Dose: 25 mg Famotidine (Pepcid) 20 mg PO BID [facility] Last Admin: 01/26/17 10:16 Dose: 20 mg Folic Acid (Folic Acid) 1 mg PO DAILY [facility] Last Admin: 01/26/17 10:16 Dose: 1 mg Furosemide (Lasix) 60 mg IVP DAILY [facility] Last Admin: 01/26/17 10:31 Dose: 60 mg Gabapentin (Neurontin) 600 mg PO TID [facility] Last Admin: 01/26/17 10:15 Dose: 600 mg Guaifenesin/Dextromethorphan (Robitussin Dm) 10 ml PO Q4H PRN PRN Reason: Cough and congestion Heparin Sodium (Porcine) (Heparin) 5,000 units SC Q12 [facility] Last Admin: 01/25/17 11:36 Dose: Not Given Lorazepam (Ativan) 1 mg PO TID PRN PRN Reason: Anxiety Losartan Potassium (Cozaar) 100 mg PO DAILY [facility] Last Admin: 01/26/17 11:13 Dose: 100 mg Multivitamins/Minerals (Therapeutic-M Tab) 1 tab PO DAILY [facility] Last Admin: 01/26/17 11:15 Dose: 1 tab Ondansetron HCl (Zofran Inj) 4 mg IVP Q6 PRN PRN Reason: Nausea/Vomiting Last Admin: 01/25/17 16:15 Dose: 4 mg Tramadol HCl (Ultram) 50 mg PO TID PRN PRN Reason: pain Last Admin: 01/26/17 10:15 Dose: 50 mg Trazodone HCl (Desyrel) 50 mg PO [facility] Last Admin: 01/25/17 21:45 Dose: 50 mg Venlafaxine HCl (Effexor Xr) 225 mg PO DAILY [facility] Last Admin: 01/26/17 10:16 Dose: 225 mg Zolpidem Tartrate (Ambien) 10 mg PO [facility] Last Admin: 01/25/17 21:42 Dose: 10 mg Physical Exam - Constitutional Appears: Non-toxic - Head Exam Head Exam: NORMAL INSPECTION - Eye Exam Eye Exam: Normal appearance - ENT Exam ENT Exam: Mucous Membranes Moist - Neck Exam Neck exam: Positive for: Full Rom Additional comments: elevated JVP - Respiratory Exam Respiratory Exam: Decreased Breath Sounds - Cardiovascular Exam Cardiovascular Exam: REGULAR RHYTHM - GI/Abdominal Exam GI & Abdominal Exam: Normal Bowel Sounds - Rectal Exam Rectal Exam: Deferred - Extremities Exam Extremities exam: Negative for: pedal edema - Back Exam Back exam: NORMAL INSPECTION - Neurological Exam Neurological exam: Alert, Oriented x3 - Psychiatric Exam Psychiatric exam: Normal Affect - Skin Skin Exam: Normal Color Results - Vital Signs Recent Vital Signs: Last Vital Signs Temp 97.4 F L 01/26/17 08:00 Pulse 56 L 01/26/17 08:00 Resp 22 01/26/17 08:00 BP 96/57 L 01/26/17 11:12 Pulse Ox 99 01/26/17 08:00 - Labs Result Diagrams: 01/26/17 06:38 04/04/17 04:00 Labs: Laboratory Results - last 24 hr 01/25/17 01/25/17 01/26/17 11:31 17:10 04:00 WBC RBC Hgb Hct MCV MCH MCHC RDW Plt Count MPV Neut % (Auto) Lymph % (Auto) [place] % (Auto) Eos % (Auto) Baso % (Auto) Neut # Lymph # [place] # Eos # Baso # Neutrophils % (Manual) Band Neutrophils % Lymphocytes % (Manual) Monocytes % (Manual) Eosinophils % (Manual) Myelocytes % Toxic Granulation Platelet Estimate Large Platelets Giant Platelets Hypochromasia (manual) Poikilocytosis (manual Anisocytosis (manual) Target Cells Sodium 135 Potassium 3.6 Chloride 93 L Carbon Dioxide 30 Anion Gap 15 BUN 11 Creatinine 0.6 L Est GFR ( Amer) > 60 Est GFR (Non-Af Amer) > 60 Random Glucose 103 Hemoglobin A1c Calcium 8.1 L Magnesium 2.5 H Total Bilirubin 0.3 AST 23 ALT 51 Alkaline Phosphatase 72 Total Creatine Kinase 123 81 CK-MB (Mass) 0.52 0.43 0.30 Troponin I, Quant < 0.0120 < 0.0120 < 0.0120 Total Protein 6.5 Albumin 3.4 L Globulin 3.1 Albumin/Globulin Ratio 1.1 Triglycerides 85 D Cholesterol 173 LDL Cholesterol Direct 103 HDL Cholesterol 44 TSH 3rd Generation 0.31 L Hepatitis A IgM Ab Negative Hep Bs Antigen Negative Hep B Core IgM Ab Negative Hepatitis C Antibody Negative 01/26/17 06:38 WBC 12.9 H RBC 4.18 Hgb 10.4 L Hct 33.0 L MCV 79.0 L MCH 24.9 L MCHC 31.5 L RDW 15.0 H Plt Count 407 H MPV 8.8 Neut % (Auto) 81.8 H Lymph % (Auto) 9.8 L [place] % (Auto) 7.1 Eos % (Auto) 1.0 Baso % (Auto) 0.3 Neut # 10.5 H Lymph # 1.3 [place] # 0.9 H Eos # 0.1 Baso # 0.0 Neutrophils % (Manual) 70 Band Neutrophils % 8 H Lymphocytes % (Manual) 10 L Monocytes % (Manual) 7 Eosinophils % (Manual) 2 Myelocytes % 2 H Toxic Granulation Present Platelet Estimate Normal Large Platelets Present Giant Platelets Present Hypochromasia (manual) Slight Poikilocytosis (manual Slight Anisocytosis (manual) Slight Target Cells Slight Sodium Potassium Chloride Carbon Dioxide Anion Gap BUN Creatinine Est GFR ( Amer) Est GFR (Non-Af Amer) Random Glucose Hemoglobin A1c 6.5 Calcium Magnesium Total Bilirubin AST ALT Alkaline Phosphatase Total Creatine Kinase CK-MB (Mass) Troponin I, Quant Total Protein Albumin Globulin Albumin/Globulin Ratio Triglycerides Cholesterol LDL Cholesterol Direct HDL Cholesterol TSH 3rd Generation Hepatitis A IgM Ab Hep Bs Antigen Hep B Core IgM Ab Hepatitis C Antibody - EKG Data EKG Interpreted by: Myself EKG shows normal: Sinus rhythm - EKG Data EKG comments: LBBB Assessment & Plan (1) H/O systemic lupus erythematosus (SLE) Assessment and Plan: will continue current therapy Status: Acute (2) HTN (hypertension) Assessment and Plan: will manage with Coreg/ARB Status: Acute (3) Acute on chronic systolic and diastolic heart failure, NYHA class 3 Assessment and Plan: I had a long discussion with the patient. Although recent evaluation of LV function last year showed LVEF 40%, EF from echo now consistent with previous cardomyopathy from a few years ago. The patient has had 3 hospitalizations for likely dyspnea and possible heart failure. I recommend EP evaluation for possible BiVAICD. I will continue with maximal tollerated medical therapy. Will consider change to Entresto given Class 3 heart failure. Will also discuss use of external defibrillator if patient is not willing to proceed with AICD at this time. Status: Acute
[2017-01-26] MEDS ORDERED: DiphenhydrAMINE 50 mg/ml Inj IVP STA (13:26)
[2017-01-26] MEDS ORDERED: POLYETHYLENE GLYCOL 3350 17 GM/Dose PACKET PO ONE ×2 (16:15→17:45)
[2017-01-26] MEDS: Albuterol-Ipratrop 3 mg / 0.5 (3 ml) UD INH SCH (21:51)
[2017-01-27] MEDS: Albuterol-Ipratrop 3 mg / 0.5 (3 ml) UD INH SCH ×4 (01:11→19:25)
--- NOTE | 2017-01-27 07:29 | CP.PCM.PN ---
<Efra Bowers - Last Filed: 01/27/17 23:26> Subjective - Date & Time of Evaluation Date of Evaluation: 01/27/17 Time of Evaluation: 07:40 - Subjective Subjective: PGY1 Medicine Note Patient seen and examined at bedside, chart reviewed and case discussed. Her shortness of breath, chest pain and abdominal pain have improved but not completely alleviated. Yesterday she reported an itchy papular rash on her arms that she attributes to the anesthesia she received for her recent bariatric surgery, benadryl helps. Constipation persists. She denies fever, abdominal pain , nausea, vomiting, diarrhea, dysuria and any other acute complaints at this time. Objective - Vital Signs/Intake and Output Vital Signs (last 24 hours): Temp Pulse Resp BP Pulse Ox 97.1 F L 56 L 18 99/41 L 98 01/27/17 04:00 01/27/17 04:00 01/27/17 04:00 01/27/17 04:00 01/27/17 04:00 Intake and Output: 01/27/17 01/27/17 06:59 18:59 Intake Total 75 Output Total 600 Balance -525 - Medications Medications: Current Medications Albuterol/Ipratropium (Duoneb 3 Mg/0.5 Mg (3 Ml) Ud) 3 ml INH RQ6 [facility] Last Admin: 01/27/17 01:11 Dose: 3 ml Aspirin (Aspirin) 325 mg PO DAILY [facility] Last Admin: 01/25/17 11:34 Dose: Not Given Azathioprine (Imuran) 50 mg PO DAILY [facility] Last Admin: 01/26/17 10:16 Dose: Not Given Carvedilol (Coreg) 25 mg PO BID [facility] Last Admin: 01/26/17 17:42 Dose: 25 mg Docusate Sodium (Colace) 100 mg PO BID [facility] Last Admin: 01/26/17 17:37 Dose: 100 mg Famotidine (Pepcid) 20 mg PO BID [facility] Last Admin: 01/26/17 10:16 Dose: 20 mg Folic Acid (Folic Acid) 1 mg PO DAILY [facility] Last Admin: 01/26/17 10:16 Dose: 1 mg Furosemide (Lasix) 60 mg IVP DAILY [facility] Last Admin: 01/26/17 10:31 Dose: 60 mg Gabapentin (Neurontin) 600 mg PO TID [facility] Last Admin: 01/26/17 17:37 Dose: 600 mg Guaifenesin/Dextromethorphan (Robitussin Dm) 10 ml PO Q4H PRN PRN Reason: Cough and congestion Heparin Sodium (Porcine) (Heparin) 5,000 units SC Q12 [facility] Last Admin: 01/25/17 11:36 Dose: Not Given Lorazepam (Ativan) 1 mg PO TID PRN PRN Reason: Anxiety Losartan Potassium (Cozaar) 100 mg PO DAILY [facility] Last Admin: 01/26/17 11:13 Dose: 100 mg Multivitamins/Minerals (Therapeutic-M Tab) 1 tab PO DAILY [facility] Last Admin: 01/26/17 11:15 Dose: 1 tab Ondansetron HCl (Zofran Inj) 4 mg IVP Q6 PRN PRN Reason: Nausea/Vomiting Last Admin: 01/25/17 16:15 Dose: 4 mg Thiamine HCl (Vitamin B1 Tab) 50 mg PO DAILY [facility] Tramadol HCl (Ultram) 50 mg PO TID PRN PRN Reason: pain Last Admin: 01/26/17 21:28 Dose: 50 mg Trazodone HCl (Desyrel) 50 mg PO [facility] Last Admin: 01/26/17 21:35 Dose: 50 mg Venlafaxine HCl (Effexor Xr) 225 mg PO DAILY [facility] Last Admin: 01/26/17 10:16 Dose: 225 mg Zolpidem Tartrate (Ambien) 10 mg PO [facility] Last Admin: 01/26/17 21:30 Dose: 10 mg - Labs Labs: PT 11.9 SECONDS (9.7-12.2) 01/25/17 01:45 INR 1.1 01/25/17 01:45 APTT 34 SECONDS (21-34) 01/25/17 01:45 - Additional Findings Additional findings: - Constitutional Appears: No Acute Distress - Head Exam Head Exam: NORMAL INSPECTION, NORMOCEPHALIC - Eye Exam Eye Exam: EOMI, Normal appearance Pupil Exam: NORMAL ACCOMODATION - ENT Exam ENT Exam: Mucous Membranes Moist, Normal Exam - Neck Exam Neck exam: Positive for: Full Rom, Normal Inspection - Respiratory Exam Respiratory Exam: Rales. absent: Rhonchi, Wheezes, Respiratory Distress. - Cardiovascular Exam Cardiovascular Exam: REGULAR RHYTHM, +S1, +S2 - GI/Abdominal Exam GI & Abdominal Exam: Normal Bowel Sounds, Soft. absent: Distended, Tenderness - Extremities Exam Extremities exam: Positive for: full ROM, normal inspection. Negative for: tenderness -4 papules noted on R arm, mildly raised, 0.5-1cm in diameter, itchy. - Back Exam Back exam: NORMAL INSPECTION - Neurological Exam Neurological exam: Alert, Oriented x3 - Psychiatric Exam Psychiatric exam: Normal Affect, Normal Mood - Skin Skin Exam: Dry, Normal Color, Warm Assessment and Plan - Assessment and Plan (Free Text) Assessment: Acute on chronic systolic and diastolic heart failure, NYHA class 3 4: ECHO - EF 25-30%, dilated LV, moderate MR, mild TR. see full report. Cardiology consult, Dr. Self, f/u recs -patient will need life vest. F/u with Dr. Self for possible BiV AICD Cardiology Consult, Dr. Montenegro, f/u recs -adjusted betablocker dose. hold ARB due to relative hypotension. continue diuretic. -recent evaluation of LV function last year showed LVEF 40%, EF from echo now consistent with previous cardomyopathy from a few years ago. -3 hospitalizations for likely dyspnea and possible heart failure. -recommend EP evaluation for possible BiVAICD. Will discuss external defibrillator if patient is not willing to proceed with AICD -Consider change to Entresto given Class 3 heart failure. -Patient with history of CHF, off meds for 2 weeks. Pro BNP on admission 2220. CXR shows cardiomegaly. ECHO 08/2015 showed EF ~50%. -Lasix 60 mg IVP daily -Coreg 6.25 mg PO Q12 -Losartan 100 mg PO daily I/O's, Daily weights, Low Sodium Diet Status: Acute Chest pain PEDRO/EKG - negative x3 Cardiology Consult, Dr. Montenegro, f/u recs PEDRO on admission negative. EKG on admission- sinus tach 101 bpm, LBBB. PEDRO/EKG - negative x2 STOP ASA 325 mg PO daily Coreg 25 mg PO BID Status: Acute Dyspnea 01/27: SOB improving with diuresis. 01/26: CT chest - mild pulmonary edema, edema in upper abdominal wall. see full report. -Consult Pulmonology, Dr. Olivares, f/u recs D- Dimer elevated. Chest CTA: 1. No definite CT evidence of pulmonary embolism. 2. Findings compatible with asymmetric pulmonary edema, mildly increased from previous examination. Superimposed pneumonia not excluded. 3. Incidental/non- acute findings are described above. Status: Acute Bariatric surgery -Recent gastric bypass surgery on 01/22/17 -Pt advised by bariatric surgeon to consume low volumes of clear liquids for the next 1-2 weeks (30cc every 15minutes). -Bariatric Diet -FA, MVI, Thiamine -HOLD anticoagulation for 7 days s/p bariatric surgery (may resume 01/29) -Hold ASA -Hold Heparin Elevated LFTs 01/25: Hep panel negative for HepA, B, or C Status: Acute HTN (hypertension) Start the following medications: Lasix 60 mg IVP daily Coreg 25 mg PO BID (home med) Losartan 100 mg PO daily (home med) Status: Acute Depression Effexor 225 mg PO Daily [id number] mg PO HS Trazodone 50 mg PO HS Status: Acute Anxiety Ativan 1 mg PO TID PRN (Patient takes 2 mg PO BID as home med) Status: Acute H/O systemic lupus erythematosus (SLE) Continue home med: Azathioprine 50 mg PO daily. Status: Acute History of fibromyalgia Resume home med: Tramadol 50 mg PO TID Status: Acute Prophylactic measure Heparin SC Q12H Pepcid 20 mg PO BID Colace 100mg PO BID for constipation Benadryl 25mg PO daily, for itchiness s/p anesthesia of 01/22 bariatric surgery. Status: Acute <Efra Herrera H - Last Filed: 01/28/17 07:17> Objective - Vital Signs/Intake and Output Vital Signs (last 24 hours): Temp Pulse Resp BP Pulse Ox 98.4 F 74 20 93/61 L 97 01/27/17 23:20 01/28/17 02:30 01/27/17 23:20 01/27/17 23:20 01/27/17 23:20 Intake and Output: 01/28/17 01/28/17 06:59 18:59 Intake Total 240 Balance 240 - Medications Medications: Current Medications Albuterol/Ipratropium (Duoneb 3 Mg/0.5 Mg (3 Ml) Ud) 3 ml INH RQ6 [facility] Last Admin: 01/28/17 01:10 Dose: 3 ml Azathioprine (Imuran) 50 mg PO DAILY [facility] Last Admin: 01/27/17 10:22 Dose: Not Given Carvedilol (Coreg) 6.25 mg PO Q12H [facility] Last Admin: 01/27/17 10:19 Dose: 6.25 mg Diphenhydramine HCl (Benadryl) 25 mg PO DAILY [facility] Last Admin: 01/27/17 12:22 Dose: 25 mg Docusate Sodium (Colace) 100 mg PO BID [facility] Last Admin: 01/27/17 17:00 Dose: 100 mg Famotidine (Pepcid) 20 mg PO BID [facility] Last Admin: 01/27/17 18:27 Dose: 20 mg Folic Acid (Folic Acid) 1 mg PO DAILY [facility] Last Admin: 01/27/17 10:20 Dose: 1 mg Furosemide (Lasix) 60 mg IVP DAILY [facility] Last Admin: 01/27/17 10:19 Dose: 60 mg Gabapentin (Neurontin) 600 mg PO TID [facility] Last Admin: 01/27/17 17:00 Dose: 600 mg Guaifenesin/Dextromethorphan (Robitussin Dm) 10 ml PO Q4H PRN PRN Reason: Cough and congestion Heparin Sodium (Porcine) (Heparin) 5,000 units SC Q12 [facility] Last Admin: 01/25/17 11:36 Dose: Not Given Lorazepam (Ativan) 1 mg PO TID PRN PRN Reason: Anxiety Multivitamins/Minerals (Therapeutic-M Tab) 1 tab PO DAILY [facility] Last Admin: 01/27/17 10:41 Dose: 1 tab Ondansetron HCl (Zofran Inj) 4 mg IVP Q6 PRN PRN Reason: Nausea/Vomiting Last Admin: 01/25/17 16:15 Dose: 4 mg Thiamine HCl (Vitamin B1 Tab) 50 mg PO DAILY [facility] Last Admin: 01/27/17 10:33 Dose: 50 mg Tramadol HCl (Ultram) 50 mg PO TID PRN PRN Reason: pain Last Admin: 01/28/17 03:32 Dose: 50 mg Trazodone HCl (Desyrel) 50 mg PO [facility] Last Admin: 01/26/17 21:35 Dose: 50 mg Venlafaxine HCl (Effexor Xr) 225 mg PO DAILY [facility] Last Admin: 01/27/17 10:31 Dose: 225 mg Zolpidem Tartrate (Ambien) 10 mg PO [facility] Last Admin: 01/26/17 21:30 Dose: 10 mg - Labs Labs: 01/27/17 11:35 01/27/17 11:35 PT 11.9 SECONDS (9.7-12.2) 01/25/17 01:45 INR 1.1 01/25/17 01:45 APTT 34 SECONDS (21-34) 01/25/17 01:45 Attending/Attestation - Attestation I have personally seen and examined this patient.: Yes I have fully participated in the care of the patient.: Yes I have reviewed all pertinent clinical information, including history, physical exam and plan: Yes Notes (Text): Medical Attending: Patient was seen and examined by me. Agree with the above note by the resident. The patient does have a low EF on repeat echo and she may or may not need a life vest. When I spoke with her about this she explains that this she explains she remembers wearing a life vest in the past and was on medications. Also per cardiology will get EP cardiology evaluation as well. She reports that her breathing is better than of admission. Will check repeat CXRAY thank you Efra Herrera
--- NOTE | 2017-01-27 08:09 | CP.PCM.PN ---
Subjective - Date & Time of Evaluation Date of Evaluation: 01/27/17 Time of Evaluation: 08:00 - Subjective Subjective: patient has lost 3lbs. She denies chest pain. still feels dyspneic. Objective - Vital Signs/Intake and Output Vital Signs (last 24 hours): Temp Pulse Resp BP Pulse Ox 97.1 F L 56 L 18 99/41 L 98 01/27/17 04:00 01/27/17 04:00 01/27/17 04:00 01/27/17 04:00 01/27/17 04:00 Intake and Output: 01/27/17 01/27/17 06:59 18:59 Intake Total 75 Output Total 600 Balance -525 - Medications Medications: Current Medications Albuterol/Ipratropium (Duoneb 3 Mg/0.5 Mg (3 Ml) Ud) 3 ml INH RQ6 [facility] Last Admin: 01/27/17 08:06 Dose: 3 ml Azathioprine (Imuran) 50 mg PO DAILY [facility] Last Admin: 01/26/17 10:16 Dose: Not Given Carvedilol (Coreg) 6.25 mg PO BID [facility] Docusate Sodium (Colace) 100 mg PO BID [facility] Last Admin: 01/26/17 17:37 Dose: 100 mg Famotidine (Pepcid) 20 mg PO BID [facility] Last Admin: 01/26/17 10:16 Dose: 20 mg Folic Acid (Folic Acid) 1 mg PO DAILY [facility] Last Admin: 01/26/17 10:16 Dose: 1 mg Furosemide (Lasix) 60 mg IVP DAILY [facility] Last Admin: 01/26/17 10:31 Dose: 60 mg Gabapentin (Neurontin) 600 mg PO TID [facility] Last Admin: 01/26/17 17:37 Dose: 600 mg Guaifenesin/Dextromethorphan (Robitussin Dm) 10 ml PO Q4H PRN PRN Reason: Cough and congestion Heparin Sodium (Porcine) (Heparin) 5,000 units SC Q12 [facility] Last Admin: 01/25/17 11:36 Dose: Not Given Lorazepam (Ativan) 1 mg PO TID PRN PRN Reason: Anxiety Multivitamins/Minerals (Therapeutic-M Tab) 1 tab PO DAILY [facility] Last Admin: 01/26/17 11:15 Dose: 1 tab Ondansetron HCl (Zofran Inj) 4 mg IVP Q6 PRN PRN Reason: Nausea/Vomiting Last Admin: 01/25/17 16:15 Dose: 4 mg Thiamine HCl (Vitamin B1 Tab) 50 mg PO DAILY [facility] Tramadol HCl (Ultram) 50 mg PO TID PRN PRN Reason: pain Last Admin: 01/26/17 21:28 Dose: 50 mg Trazodone HCl (Desyrel) 50 mg PO HS [facility] Last Admin: 01/26/17 21:35 Dose: 50 mg Venlafaxine HCl (Effexor Xr) 225 mg PO DAILY [facility] Last Admin: 01/26/17 10:16 Dose: 225 mg Zolpidem Tartrate (Ambien) 10 mg PO HS [facility] Last Admin: 01/26/17 21:30 Dose: 10 mg - Labs Labs: PT 11.9 SECONDS (9.7-12.2) 01/25/17 01:45 INR 1.1 01/25/17 01:45 APTT 34 SECONDS (21-34) 01/25/17 01:45 - Constitutional Appears: Non-toxic - Head Exam Head Exam: NORMAL INSPECTION - Eye Exam Eye Exam: Normal appearance - ENT Exam ENT Exam: Mucous Membranes Moist - Neck Exam Neck Exam: Full ROM - Respiratory Exam Respiratory Exam: Decreased Breath Sounds - Cardiovascular Exam Cardiovascular Exam: REGULAR RHYTHM - GI/Abdominal Exam GI & Abdominal Exam: Normal Bowel Sounds - Rectal Exam Rectal Exam: Deferred - Extremities Exam Extremities Exam: Pedal Edema - Back Exam Back Exam: NORMAL INSPECTION - Neurological Exam Neurological Exam: Alert - Psychiatric Exam Psychiatric exam: Normal Affect - Skin Skin Exam: Normal Color Assessment and Plan (1) H/O systemic lupus erythematosus (SLE) Status: Acute (2) HTN (hypertension) Status: Acute (3) Acute on chronic systolic and diastolic heart failure, NYHA class 3 Assessment & Plan: will adjust betablocker dose. hold ARB due to relative hypotension. continue diuretic. Status: Acute
[2017-01-27] MEDS ORDERED: POLYETHYLENE GLYCOL 3350 17 GM/Dose PACKET PO ONE (10:04)
[2017-01-27] MEDS: Venlafaxine 75 mg ER Cap PO SCH (10:31)
[2017-01-27] MEDS: Multivitamin With Minerals Tab PO SCH (10:41)
[2017-01-27 11:39] LABS: BASO # 0.1 K/uL (0.0-0.2); BASO % 0.9 % (0.0-2.0); EOS # 0.8 K/uL (0.0-0.7); EOS % 8.1 % (0.0-4.0); HEMATOCRIT 35.5 % (34.0-47.0); LYMPH % 28.5 % (20.0-40.0); MEAN CELL VOLUME 79.7 fL (81.0-99.0); MEAN CORPUSCULAR HEMOGLOBIN 25.3 pg (27.0-31.0); MEAN CORPUSCULAR HGB CONC 31.7 g/dL (33.0-37.0); MEAN PLATELET VOLUME 8.4 fL (7.2-11.7); MONO # 0.7 K/uL (0.0-0.8); MONO % 6.6 % (0.0-10.0); NRBC % 0.2 % (0.0-2.0); RED CELL DISTRIBUTION WIDTH 15.1 % (11.5-14.5); WHITE BLOOD COUNT 10.4 K/uL (4.8-10.8)
[2017-01-27 11:49] LABS: CHLORIDE 91 mmol/L (98-107); POTASSIUM 3.4 mmol/L (3.6-5.2); SODIUM 137 mmol/L (132-148)
[2017-01-27 11:51] LABS: ALB/GLOB RATIO 1.2 (1.0-2.1); ALKALINE PHOSPHATASE 72 U/L (38-126); ALT/SGPT 45 U/L (9-52); AST/SGOT 23 U/L (14-36); BILIRUBIN,TOTAL 0.8 mg/dL (0.2-1.3); BLOOD UREA NITROGEN 17 mg/dL (7-17); CARBON DIOXIDE 35 mmol/L (22-30); GFR AFRICAN-AMERICAN > 60; TOTAL PROTEIN 7.5 g/dL (6.3-8.3)
[2017-01-27 11:52] LABS: GLUCOSE,RANDOM 106 mg/dL (65-105); MAGNESIUM 2.3 mg/dL (1.6-2.3); PHOSPHOROUS 3.8 mg/dL (2.5-4.5)
--- NOTE | 2017-01-27 12:05 | CP.PCM.CON ---
<Anne-Marie Flower - Last Filed: 01/27/17 14:21> History of Present Illness - History of Present Illness History of Present Illness: Cardiology Consult Note for Dr. Self Reason for consult: Cardiomyopathy and evaluation for AICD placement This is a 41Y F with PMH HTN, CHF, Lupus, fibromyalgia, depression and kidney stones was admitted for respiratory distress secondary to CHF exacerbation. The patient had a gastric bypass surgery on 01/22/17 and was not taking her BP meds, which included Lasix. It is noted that in August 2015, her echo showed EF of 50% with borderline LV dysfunction. A nuclear stress test in December 2015 showed EF of 40%, mild LV dysfunction and normal perfusion. She had another echo during this admission which has now showed EF 25-30% with severe LV dysfunction. Her EKG showed LBBB which has been present since November 2015. It is noted that the patient has had a life vest in the past as well. As of today, she reports having CP when taking deep breaths. She also feels SOB after talking for several minutes. She denies n/v/d, numbness/tingling, vision changes , hematuria or dysuria. PMH: HTN, CHF, Lupus, fibromyalgia, depression and kidney stones PSH: Gastric bypass (01/22/17), Hysterectomy (2013), Cardiac ablation (2012), Tubal ligation (2012), knee arthroscopy (2012), Cardiac Cath (2009), Appendectomy (2008), Lap band placement (2007), (2005), IVC filter ( 2003) Home meds: Please see MAR Allergies: Hydroxychloroquine- rash SH: Denies tobacco, alcohol or drug use FH: DM Wrist Hemmer: Dr. Montenegro Review of Systems - Review of Systems All systems: reviewed and no additional remarkable complaints except Review of Systems: As per HPI Past Patient History - Infectious Disease Hx of Infectious Diseases: None - Past Medical History & Family History Past Medical History?: Yes - Past Social History Smoking Status: Never Smoked Alcohol: None Drugs: Denies - CARDIAC Hx Cardia Arrhythmia: Yes Hx Congestive Heart Failure: Yes Hx Hypercholesterolemia: Yes Hx Hypertension: Yes - PULMONARY Hx Asthma: Yes - NEUROLOGICAL Hx Neurological Disorder: No - HEENT Hx HEENT Problems: No - RENAL Hx Chronic Kidney Disease: No - ENDOCRINE/METABOLIC Hx Endocrine Disorders: Yes Hx Diabetes Mellitus Type 2: Yes (??) Hx Systemic Lupus Erythematosus: Yes - HEMATOLOGICAL/ONCOLOGICAL Hx Blood Disorders: No - INTEGUMENTARY Hx Dermatological Problems: Yes Hx Eczema: Yes - MUSCULOSKELETAL/RHEUMATOLOGICAL Hx Musculoskeletal Disorders: Yes Hx Falls: No Other/Comment: HIP REPLACEMENT 2014 - GASTROINTESTINAL Hx Gastrointestinal Disorders: No - GENITOURINARY/GYNECOLOGICAL Hx Genitourinary Disorders: No - PSYCHIATRIC Hx Anxiety: Yes Hx Paranoia: Yes Hx Substance Use: No - SURGICAL HISTORY Hx Appendectomy: Yes Hx Cholecystectomy: Yes Hx Gastric Bypass Surgery: Yes Other/Comment: HIP REPLACEMENT X3 - ANESTHESIA Hx Anesthesia: Yes Hx Anesthesia Reactions: Yes (Developed rash 2and 1/2 weeks after hip surgery similair to now) Hx Malignant Hyperthermia: No Meds Allergies/Adverse Reactions: Allergies Allergy/AdvReac Type Severity Reaction Status Date / Time propofol Allergy Intermediate RASH Verified 01/27/17 12:38 hydroxychloroquine sulfate Allergy RASH Verified 01/25/17 13:17 [From Plaquenil] FRUITS Allergy Mild SHORTNESS Uncoded 01/25/17 13:17 OF BREATH "anastesia" Allergy RASH Uncoded 01/25/17 13:17 - Medications Medications: Current Medications Albuterol/Ipratropium (Duoneb 3 Mg/0.5 Mg (3 Ml) Ud) 3 ml INH RQ6 [facility] Last Admin: 01/27/17 08:06 Dose: 3 ml Azathioprine (Imuran) 50 mg PO DAILY [facility] Last Admin: 01/27/17 10:22 Dose: Not Given Carvedilol (Coreg) 6.25 mg PO Q12H [facility] Last Admin: 01/27/17 10:19 Dose: 6.25 mg Diphenhydramine HCl (Benadryl) 25 mg PO DAILY [facility] Docusate Sodium (Colace) 100 mg PO BID [facility] Last Admin: 01/27/17 10:19 Dose: 100 mg Famotidine (Pepcid) 20 mg PO BID [facility] Last Admin: 01/27/17 10:20 Dose: 20 mg Folic Acid (Folic Acid) 1 mg PO DAILY [facility] Last Admin: 01/27/17 10:20 Dose: 1 mg Furosemide (Lasix) 60 mg IVP DAILY [facility] Last Admin: 01/27/17 10:19 Dose: 60 mg Gabapentin (Neurontin) 600 mg PO TID [facility] Last Admin: 01/27/17 10:33 Dose: 600 mg Guaifenesin/Dextromethorphan (Robitussin Dm) 10 ml PO Q4H PRN PRN Reason: Cough and congestion Heparin Sodium (Porcine) (Heparin) 5,000 units SC Q12 [facility] Last Admin: 01/25/17 11:36 Dose: Not Given Lorazepam (Ativan) 1 mg PO TID PRN PRN Reason: Anxiety Multivitamins/Minerals (Therapeutic-M Tab) 1 tab PO DAILY [facility] Last Admin: 01/27/17 10:41 Dose: 1 tab Ondansetron HCl (Zofran Inj) 4 mg IVP Q6 PRN PRN Reason: Nausea/Vomiting Last Admin: 01/25/17 16:15 Dose: 4 mg Thiamine HCl (Vitamin B1 Tab) 50 mg PO DAILY [facility] Last Admin: 01/27/17 10:33 Dose: 50 mg Tramadol HCl (Ultram) 50 mg PO TID PRN PRN Reason: pain Last Admin: 01/26/17 21:28 Dose: 50 mg Trazodone HCl (Desyrel) 50 mg PO [facility] Last Admin: 01/26/17 21:35 Dose: 50 mg Venlafaxine HCl (Effexor Xr) 225 mg PO DAILY [facility] Last Admin: 01/27/17 10:31 Dose: 225 mg Zolpidem Tartrate (Ambien) 10 mg PO [facility] Last Admin: 01/26/17 21:30 Dose: 10 mg Physical Exam - Constitutional Appears: No Acute Distress - Head Exam Head Exam: ATRAUMATIC, NORMAL INSPECTION, NORMOCEPHALIC - Eye Exam Eye Exam: Normal appearance Pupil Exam: NORMAL ACCOMODATION - ENT Exam ENT Exam: Mucous Membranes Moist - Respiratory Exam Respiratory Exam: Decreased Breath Sounds, Rales, NORMAL BREATHING PATTERN. absent: Clear to Auscultation Bilateral, Rhonchi, Wheezes, Respiratory Distress - Cardiovascular Exam Cardiovascular Exam: REGULAR RHYTHM, +S1, +S2. absent: Tachycardia, Gallop, Rubs, Systolic Murmur - GI/Abdominal Exam GI & Abdominal Exam: Normal Bowel Sounds. absent: Rebound, Rigid, Soft, Tenderness Additional comments: dressing intact no blood or drainage - Extremities Exam Extremities exam: Positive for: pedal edema. Negative for: calf tenderness - Neurological Exam Neurological exam: Alert, CN II-XII Intact, Oriented x3 - Psychiatric Exam Psychiatric exam: Normal Affect, Normal Mood - Skin Skin Exam: Normal Color, Warm Results - Vital Signs Recent Vital Signs: Last Vital Signs Temp 97.1 F L 01/27/17 04:00 Pulse 56 L 01/27/17 04:00 Resp 18 01/27/17 04:00 BP 105/63 01/27/17 10:19 Pulse Ox 98 01/27/17 04:00 - Labs Result Diagrams: 01/27/17 11:35 01/27/17 11:35 Labs: Laboratory Results - last 24 hr 01/27/17 11:35 WBC 10.4 RBC 4.46 Hgb 11.3 Hct 35.5 MCV 79.7 L MCH 25.3 L MCHC 31.7 L RDW 15.1 H Plt Count 423 H MPV 8.4 Neut % (Auto) 55.9 Lymph % (Auto) 28.5 [place] % (Auto) 6.6 Eos % (Auto) 8.1 H Baso % (Auto) 0.9 Neut # 5.8 Lymph # 3.0 [place] # 0.7 Eos # 0.8 H Baso # 0.1 Albumin 4.1 - EKG Data EKG Interpreted by: Myself EKG shows normal: Sinus rhythm - EKG Data When Compared to Previous EKG: No Significant Change Interpretation: Other EKG comments: LBBB Assessment & Plan - Assessment and Plan (Free Text) Assessment: This is a 41Y F with PMH of HTN, CHF, Lupus, fibromyalgia, depression and kidney stones with recent gastric bypass surgery 1 week ago admitted for 1) CHF exacerbation with severe LV dysfunction 2) HTN 3) s/p Gastric bypass POD #5 4) H/o Lupus Plan: - Continue Coreg and Lasix - Continue to monitor daily weight, strict I&O - Patient will need life vest - Patient will follow up with Dr. Self after d/c GI ppx: Pepcid DVT ppx: Heparin Case seen, reviewed and discussed with Dr. Clair Flower PGY1 - Date & Time Date: 01/27/17 Time: 14:00 <Jenni Self - Last Filed: 01/28/17 06:10> Meds - Medications Medications: Current Medications Albuterol/Ipratropium (Duoneb 3 Mg/0.5 Mg (3 Ml) Ud) 3 ml INH RQ6 [facility] Last Admin: 01/28/17 01:10 Dose: 3 ml Azathioprine (Imuran) 50 mg PO DAILY [facility] Last Admin: 01/27/17 10:22 Dose: Not Given Carvedilol (Coreg) 6.25 mg PO Q12H [facility] Last Admin: 01/27/17 10:19 Dose: 6.25 mg Diphenhydramine HCl (Benadryl) 25 mg PO DAILY [facility] Last Admin: 01/27/17 12:22 Dose: 25 mg Docusate Sodium (Colace) 100 mg PO BID [facility] Last Admin: 01/27/17 17:00 Dose: 100 mg Famotidine (Pepcid) 20 mg PO BID [facility] Last Admin: 01/27/17 18:27 Dose: 20 mg Folic Acid (Folic Acid) 1 mg PO DAILY [facility] Last Admin: 01/27/17 10:20 Dose: 1 mg Furosemide (Lasix) 60 mg IVP DAILY [facility] Last Admin: 01/27/17 10:19 Dose: 60 mg Gabapentin (Neurontin) 600 mg PO TID [facility] Last Admin: 01/27/17 17:00 Dose: 600 mg Guaifenesin/Dextromethorphan (Robitussin Dm) 10 ml PO Q4H PRN PRN Reason: Cough and congestion Heparin Sodium (Porcine) (Heparin) 5,000 units SC Q12 [facility] Last Admin: 01/25/17 11:36 Dose: Not Given Lorazepam (Ativan) 1 mg PO TID PRN PRN Reason: Anxiety Multivitamins/Minerals (Therapeutic-M Tab) 1 tab PO DAILY [facility] Last Admin: 01/27/17 10:41 Dose: 1 tab Ondansetron HCl (Zofran Inj) 4 mg IVP Q6 PRN PRN Reason: Nausea/Vomiting Last Admin: 01/25/17 16:15 Dose: 4 mg Thiamine HCl (Vitamin B1 Tab) 50 mg PO DAILY [facility] Last Admin: 01/27/17 10:33 Dose: 50 mg Tramadol HCl (Ultram) 50 mg PO TID PRN PRN Reason: pain Last Admin: 01/28/17 03:32 Dose: 50 mg Trazodone HCl (Desyrel) 50 mg PO HS [facility] Last Admin: 01/26/17 21:35 Dose: 50 mg Venlafaxine HCl (Effexor Xr) 225 mg PO DAILY [facility] Last Admin: 01/27/17 10:31 Dose: 225 mg Zolpidem Tartrate (Ambien) 10 mg PO [facility] Last Admin: 01/26/17 21:30 Dose: 10 mg Results - Vital Signs Recent Vital Signs: Last Vital Signs Temp 98.4 F 01/27/17 23:20 Pulse 74 01/28/17 02:30 Resp 20 01/27/17 23:20 BP 93/61 L 01/27/17 23:20 Pulse Ox 97 01/27/17 23:20 - Labs Result Diagrams: 01/27/17 11:35 01/27/17 11:35 Labs: Laboratory Results - last 24 hr 01/27/17 11:35 WBC 10.4 RBC 4.46 Hgb 11.3 Hct 35.5 MCV 79.7 L MCH 25.3 L MCHC 31.7 L RDW 15.1 H Plt Count 423 H MPV 8.4 Neut % (Auto) 55.9 Lymph % (Auto) 28.5 [place] % (Auto) 6.6 Eos % (Auto) 8.1 H Baso % (Auto) 0.9 Neut # 5.8 Lymph # 3.0 [place] # 0.7 Eos # 0.8 H Baso # 0.1 Sodium 137 Potassium 3.4 L Chloride 91 L Carbon Dioxide 35 H Anion Gap 14 BUN 17 Creatinine 0.8 Est GFR ( Amer) > 60 Est GFR (Non-Af Amer) > 60 Random Glucose 106 H Calcium 8.0 L Phosphorus 3.8 Magnesium 2.3 Total Bilirubin 0.8 AST 23 ALT 45 Alkaline Phosphatase 72 Total Protein 7.5 Albumin 4.1 Globulin 3.4 Albumin/Globulin Ratio 1.2 Attending/Attestation - Attestation I have personally seen and examined this patient.: Yes I have fully participated in the care of the patient.: Yes I have reviewed all pertinent clinical information: Yes Notes (Text): 01/28/17 06:09 Pt s/p post cmp with improvement now has decompensated ef 27% will need vest and ICD if no improvement medically tx 3months
--- NOTE | 2017-01-27 16:58 | RAD ---
HISTORY: Shortness of breath.Technique: Single view portable semi erect @ 11:40. COMPARISON: 01/25/2017. FINDINGS: LUNGS: No active pulmonary disease. Resolution of pulmonary edema. PLEURA: No significant pleural effusion identified, no pneumothorax apparent. CARDIOVASCULAR: Normal. OSSEOUS STRUCTURES: No significant abnormalities. VISUALIZED UPPER ABDOMEN: Normal. OTHER FINDINGS: None. IMPRESSION: No active disease. Resolved pulmonary edema.
[2017-01-27 18:40] VITALS: RESP 20
--- NOTE | 2017-01-27 19:06 | CARD ---
APPROVED REPORT EKG Measurement Heart [id number] <Conclusion> Normal sinus rhythm Possible Left atrial enlargement Left bundle branch block Abnormal ECG
[2017-01-28] MEDS: Albuterol-Ipratrop 3 mg / 0.5 (3 ml) UD INH SCH ×3 (01:10→13:35)
[2017-01-28 07:36] LABS: BASO # 0.1 K/uL (0.0-0.2); BASO % 0.6 % (0.0-2.0); EOS # 0.8 K/uL (0.0-0.7); EOS % 7.6 % (0.0-4.0); HEMATOCRIT 35.1 % (34.0-47.0); LYMPH # 2.9 K/uL (1.0-4.3); LYMPH % 27.8 % (20.0-40.0); MEAN CELL VOLUME 78.9 fL (81.0-99.0); MEAN CORPUSCULAR HEMOGLOBIN 25.6 pg (27.0-31.0); MEAN CORPUSCULAR HGB CONC 32.5 g/dL (33.0-37.0); MEAN PLATELET VOLUME 8.3 fL (7.2-11.7); MONO # 0.7 K/uL (0.0-0.8); MONO % 6.8 % (0.0-10.0); RED CELL DISTRIBUTION WIDTH 15.4 % (11.5-14.5); WHITE BLOOD COUNT 10.4 K/uL (4.8-10.8)
[2017-01-28 07:42] LABS: CHLORIDE 92 mmol/L (98-107); POTASSIUM 3.5 mmol/L (3.6-5.2); SODIUM 137 mmol/L (132-148)
[2017-01-28 07:45] LABS: ALB/GLOB RATIO 1.2 (1.0-2.1); ALKALINE PHOSPHATASE 69 U/L (38-126); ALT/SGPT 38 U/L (9-52); AST/SGOT 22 U/L (14-36); BILIRUBIN,TOTAL 1.2 mg/dL (0.2-1.3); BLOOD UREA NITROGEN 14 mg/dL (7-17); CALCIUM 8.5 mg/dl (8.6-10.4); CARBON DIOXIDE 36 mmol/L (22-30); GFR AFRICAN-AMERICAN > 60; GLUCOSE,RANDOM 87 mg/dL (65-105); MAGNESIUM 2.4 mg/dL (1.6-2.3); TOTAL PROTEIN 7.2 g/dL (6.3-8.3)
--- NOTE | 2017-01-28 08:12 | CP.PCM.PN ---
<Anne-Marie Flower - Last Filed: 01/28/17 08:09> Subjective - Date & Time of Evaluation Date of Evaluation: 01/28/17 Time of Evaluation: 07:40 - Subjective Subjective: Cardiology Progress Note for Dr. Self Patient seen and examined at bedside. As per nursing, there were no acute overnight events. She states that her chest pain and SOB have improved since yesterday. She still feels SOB when ambulating. She denies n/v/d, numbness/ tingling, hematuria, dysuria or vision changes. Objective - Vital Signs/Intake and Output Vital Signs (last 24 hours): Temp Pulse Resp BP Pulse Ox 98.4 F 74 20 93/61 L 97 01/27/17 23:20 01/28/17 02:30 01/27/17 23:20 01/27/17 23:20 01/27/17 23:20 Intake and Output: 01/28/17 01/28/17 06:59 18:59 Intake Total 240 Balance 240 - Medications Medications: Current Medications Albuterol/Ipratropium (Duoneb 3 Mg/0.5 Mg (3 Ml) Ud) 3 ml INH RQ6 [facility] Last Admin: 01/28/17 01:10 Dose: 3 ml Azathioprine (Imuran) 50 mg PO DAILY [facility] Last Admin: 01/27/17 10:22 Dose: Not Given Carvedilol (Coreg) 6.25 mg PO Q12H [facility] Last Admin: 01/27/17 10:19 Dose: 6.25 mg Diphenhydramine HCl (Benadryl) 25 mg PO DAILY [facility] Last Admin: 01/27/17 12:22 Dose: 25 mg Docusate Sodium (Colace) 100 mg PO BID [facility] Last Admin: 01/27/17 17:00 Dose: 100 mg Famotidine (Pepcid) 20 mg PO BID [facility] Last Admin: 01/27/17 18:27 Dose: 20 mg Folic Acid (Folic Acid) 1 mg PO DAILY [facility] Last Admin: 01/27/17 10:20 Dose: 1 mg Furosemide (Lasix) 60 mg IVP DAILY [facility] Last Admin: 01/27/17 10:19 Dose: 60 mg Gabapentin (Neurontin) 600 mg PO TID [facility] Last Admin: 01/27/17 17:00 Dose: 600 mg Guaifenesin/Dextromethorphan (Robitussin Dm) 10 ml PO Q4H PRN PRN Reason: Cough and congestion Heparin Sodium (Porcine) (Heparin) 5,000 units SC Q12 [facility] Last Admin: 01/25/17 11:36 Dose: Not Given Lorazepam (Ativan) 1 mg PO TID PRN PRN Reason: Anxiety Multivitamins/Minerals (Therapeutic-M Tab) 1 tab PO DAILY [facility] Last Admin: 01/27/17 10:41 Dose: 1 tab Ondansetron HCl (Zofran Inj) 4 mg IVP Q6 PRN PRN Reason: Nausea/Vomiting Last Admin: 01/25/17 16:15 Dose: 4 mg Thiamine HCl (Vitamin B1 Tab) 50 mg PO DAILY [facility] Last Admin: 01/27/17 10:33 Dose: 50 mg Tramadol HCl (Ultram) 50 mg PO TID PRN PRN Reason: pain Last Admin: 01/28/17 03:32 Dose: 50 mg Trazodone HCl (Desyrel) 50 mg PO [facility] Last Admin: 01/26/17 21:35 Dose: 50 mg Venlafaxine HCl (Effexor Xr) 225 mg PO DAILY [facility] Last Admin: 01/27/17 10:31 Dose: 225 mg Zolpidem Tartrate (Ambien) 10 mg PO [facility] Last Admin: 01/26/17 21:30 Dose: 10 mg - Labs Labs: 01/28/17 07:09 01/27/17 11:35 PT 11.9 SECONDS (9.7-12.2) 01/25/17 01:45 INR 1.1 01/25/17 01:45 APTT 34 SECONDS (21-34) 01/25/17 01:45 - Constitutional Appears: No Acute Distress - Head Exam Head Exam: ATRAUMATIC, NORMAL INSPECTION, NORMOCEPHALIC - Eye Exam Eye Exam: Normal appearance Pupil Exam: NORMAL ACCOMODATION - ENT Exam ENT Exam: Mucous Membranes Moist - Neck Exam Neck Exam: Full ROM, Normal Inspection - Respiratory Exam Respiratory Exam: Decreased Breath Sounds, Rales (fine rales at bases ), NORMAL BREATHING PATTERN. absent: Rhonchi, Wheezes, Respiratory Distress - Cardiovascular Exam Cardiovascular Exam: REGULAR RHYTHM, +S1, +S2. absent: Tachycardia, Gallop, Rubs, Murmur - GI/Abdominal Exam GI & Abdominal Exam: Soft, Tenderness (around surgical site ), Normal Bowel Sounds Additional comments: dressing intact, clean and dry - Extremities Exam Extremities Exam: Full ROM. absent: Calf Tenderness, Pedal Edema - Neurological Exam Neurological Exam: Alert, Awake, CN II-XII Intact - Psychiatric Exam Psychiatric exam: Normal Affect, Normal Mood - Skin Skin Exam: Dry, Intact, Normal Color, Warm Assessment and Plan - Assessment and Plan (Free Text) Assessment: This is a 41Y F with PMH of HTN, CHF, Lupus, fibromyalgia, depression and kidney stones with recent gastric bypass surgery 1 week ago admitted for 1) CHF exacerbation with severe LV dysfunction 2) HTN 3) s/p Gastric bypass POD #6 4) Hx of Lupus Plan: - Patient will get life vest today- will need to wear for 3 months to see if she can be medically managed before AICD placement - Continue Lasix and Coreg - Strict I&O - Continue to monitor daily weight GI ppx: Pepcid DVT ppx: Heparin Case seen, reviewed and discussed with Dr. Clair Flower PGY1 <Jenni Self - Last Filed: 01/28/17 09:31> Objective - Vital Signs/Intake and Output Vital Signs (last 24 hours): Temp Pulse Resp BP Pulse Ox 98.5 F 86 20 119/72 95 01/28/17 08:38 01/28/17 08:38 01/28/17 08:38 01/28/17 08:38 01/28/17 08:38 Intake and Output: 01/28/17 01/28/17 06:59 18:59 Intake Total 240 Balance 240 - Medications Medications: Current Medications Albuterol/Ipratropium (Duoneb 3 Mg/0.5 Mg (3 Ml) Ud) 3 ml INH RQ6 [facility] Last Admin: 01/28/17 08:45 Dose: 3 ml Azathioprine (Imuran) 50 mg PO DAILY [facility] Last Admin: 01/27/17 10:22 Dose: Not Given Carvedilol (Coreg) 6.25 mg PO Q12H [facility] Last Admin: 01/27/17 10:19 Dose: 6.25 mg Diphenhydramine HCl (Benadryl) 25 mg PO DAILY [facility] Last Admin: 01/27/17 12:22 Dose: 25 mg Docusate Sodium (Colace) 100 mg PO BID [facility] Last Admin: 01/27/17 17:00 Dose: 100 mg Famotidine (Pepcid) 20 mg PO BID [facility] Last Admin: 01/27/17 18:27 Dose: 20 mg Folic Acid (Folic Acid) 1 mg PO DAILY [facility] Last Admin: 01/27/17 10:20 Dose: 1 mg Furosemide (Lasix) 60 mg IVP DAILY [facility] Last Admin: 01/27/17 10:19 Dose: 60 mg Gabapentin (Neurontin) 600 mg PO TID [facility] Last Admin: 01/27/17 17:00 Dose: 600 mg Guaifenesin/Dextromethorphan (Robitussin Dm) 10 ml PO Q4H PRN PRN Reason: Cough and congestion Heparin Sodium (Porcine) (Heparin) 5,000 units SC Q12 [facility] Last Admin: 01/25/17 11:36 Dose: Not Given Lorazepam (Ativan) 1 mg PO TID PRN PRN Reason: Anxiety Multivitamins/Minerals (Therapeutic-M Tab) 1 tab PO DAILY [facility] Last Admin: 01/27/17 10:41 Dose: 1 tab Ondansetron HCl (Zofran Inj) 4 mg IVP Q6 PRN PRN Reason: Nausea/Vomiting Last Admin: 01/25/17 16:15 Dose: 4 mg Thiamine HCl (Vitamin B1 Tab) 50 mg PO DAILY [facility] Last Admin: 01/27/17 10:33 Dose: 50 mg Tramadol HCl (Ultram) 50 mg PO TID PRN PRN Reason: pain Last Admin: 01/28/17 08:32 Dose: 50 mg Trazodone HCl (Desyrel) 50 mg PO [facility] Last Admin: 01/26/17 21:35 Dose: 50 mg Venlafaxine HCl (Effexor Xr) 225 mg PO DAILY [facility] Last Admin: 01/27/17 10:31 Dose: 225 mg Zolpidem Tartrate (Ambien) 10 mg PO [facility] Last Admin: 01/26/17 21:30 Dose: 10 mg - Labs Labs: 01/28/17 07:09 01/28/17 07:09 PT 11.9 SECONDS (9.7-12.2) 01/25/17 01:45 INR 1.1 01/25/17 01:45 APTT 34 SECONDS (21-34) 01/25/17 01:45 Attending/Attestation - Attestation I have personally seen and examined this patient.: Yes I have fully participated in the care of the patient.: Yes I have reviewed all pertinent clinical information, including history, physical exam and plan: Yes Notes (Text): 01/28/17 09:31 Pt transferred to [facility] awaiting ICD vest continue chf meds to optimize medical tx
[2017-01-28] MEDS: Multivitamin With Minerals Tab PO SCH (09:46)
[2017-01-28] MEDS: Venlafaxine 75 mg ER Cap PO SCH (11:09)
[2017-01-28] MEDS ORDERED: Potassium Chloride 20 mEq ER Tab PO ONE (11:39)
[2017-01-28] MEDS ORDERED: Oxycodone/Acetaminophen 5/325 mg Tab PO PRN (12:26)
[2017-01-28 15:50] VITALS: BP 101/66; PULSE 70; TEMP 98.2; O2SAT 98
--- NOTE | 2017-01-28 20:14 | CP.PCM.DIS ---
<Efra Bowers - Last Filed: 01/29/17 22:37> Provider - Provider Date of Admission: 01/26/17 16:18 Attending physician: Jassi Guzman MD Consults: Cardio Dr Montenegro Cardio Dr Self Pulm: Dr Olivares Time Spent in preparation of Discharge (in minutes): 40 Hospital Course - Lab Results Lab Results: Micro Results 01/27/17 Unknown Naris MRSA Culture - Final MRSA NOT DETECTED Most Recent Lab Values WBC 10.4 K/uL (4.8-10.8) 01/28/17 07:09 RBC 4.45 Mil/uL (3.80-5.20) 01/28/17 07:09 Hgb 11.4 g/dL (11.0-16.0) 01/28/17 07:09 Hct 35.1 % (34.0-47.0) 01/28/17 07:09 MCV 78.9 fL (81.0-99.0) L 01/28/17 07:09 MCH 25.6 pg (27.0-31.0) L 01/28/17 07:09 MCHC 32.5 g/dL (33.0-37.0) L 01/28/17 07:09 RDW 15.4 % (11.5-14.5) H 01/28/17 07:09 Plt Count 443 K/uL (130-400) H 01/28/17 07:09 MPV 8.3 fL (7.2-11.7) 01/28/17 07:09 Neut % (Auto) 57.2 % (50.0-75.0) 01/28/17 07:09 Lymph % (Auto) 27.8 % (20.0-40.0) 01/28/17 07:09 Door % (Auto) 6.8 % (0.0-10.0) 01/28/17 07:09 Eos % (Auto) 7.6 % (0.0-4.0) H 01/28/17 07:09 Baso % (Auto) 0.6 % (0.0-2.0) 01/28/17 07:09 Neut # 6.0 K/uL (1.8-7.0) 01/28/17 07:09 Lymph # 2.9 K/uL (1.0-4.3) 01/28/17 07:09 Door # 0.7 K/uL (0.0-0.8) 01/28/17 07:09 Eos # 0.8 K/uL (0.0-0.7) H 01/28/17 07:09 Baso # 0.1 K/uL (0.0-0.2) 01/28/17 07:09 Neutrophils % (Manual) 70 % (50-75) 01/26/17 06:38 Band Neutrophils % 8 % (0-2) H 01/26/17 06:38 Lymphocytes % (Manual) 10 % (20-40) L 01/26/17 06:38 Monocytes % (Manual) 7 % (0-10) 01/26/17 06:38 Eosinophils % (Manual) 2 % (0-4) 01/26/17 06:38 Myelocytes % 2 % (0-0) H 01/26/17 06:38 Toxic Granulation Present 01/26/17 06:38 Platelet Estimate Normal (NORMAL) 01/26/17 06:38 Large Platelets Present 01/26/17 06:38 Giant Platelets Present 01/26/17 06:38 Hypochromasia (manual) Slight 01/26/17 06:38 Poikilocytosis (manual Slight 01/26/17 06:38 Anisocytosis (manual) Slight 01/26/17 06:38 Target Cells Slight 01/26/17 06:38 PT 11.9 SECONDS (9.7-12.2) 01/25/17 01:45 INR 1.1 01/25/17 01:45 APTT 34 SECONDS (21-34) 01/25/17 01:45 D-Dimer, Quantitative 1093 ng/mlDDU (0-243) H 01/25/17 01:45 Sodium 137 mmol/L (132-148) 01/28/17 07:09 Potassium 3.5 mmol/L (3.6-5.2) L 01/28/17 07:09 Chloride 92 mmol/L (98-107) L 01/28/17 07:09 Carbon Dioxide 36 mmol/L (22-30) H 01/28/17 07:09 Anion Gap 13 (10-20) 01/28/17 07:09 BUN 14 mg/dL (7-17) 01/28/17 07:09 Creatinine 0.7 MG/DL (0.7-1.2) 01/28/17 07:09 Est GFR ( Amer) > 60 01/28/17 07:09 Est GFR (Non-Af Amer) > 60 01/28/17 07:09 Random Glucose 87 mg/dL (65-105) 01/28/17 07:09 Hemoglobin A1c 6.5 % (4.2-6.5) 01/26/17 06:38 Calcium 8.5 mg/dl (8.6-10.4) L 01/28/17 07:09 Phosphorus 4.2 mg/dL (2.5-4.5) 01/28/17 07:29 Magnesium 2.4 mg/dL (1.6-2.3) H 01/28/17 07:09 Total Bilirubin 1.2 mg/dL (0.2-1.3) 01/28/17 07:09 AST 22 U/L (14-36) 01/28/17 07:09 ALT 38 U/L (9-52) 01/28/17 07:09 Alkaline Phosphatase 69 U/L (38-126) 01/28/17 07:09 Total Creatine Kinase 81 U/L (30-135) 01/26/17 04:00 CK-MB (Mass) 0.30 ng/mL (0.0-3.38) 01/26/17 04:00 Troponin I < 0.0120 ng/mL (0.00-0.120) 01/25/17 01:45 Troponin I, Quant < 0.0120 ng/mL (0.00-0.120) 01/26/17 04:00 NT-Pro-B Natriuret Pep 2220 pg/mL (0-450) H 01/25/17 01:45 Total Protein 7.2 g/dL (6.3-8.3) 01/28/17 07:09 Albumin 3.9 g/dL (3.5-5.0) 01/28/17 07:09 Globulin 3.2 gm/dL (2.2-3.9) 01/28/17 07:09 Albumin/Globulin Ratio 1.2 (1.0-2.1) 01/28/17 07:09 Triglycerides 85 mg/dL (0-149) D 01/26/17 04:00 Cholesterol 173 mg/dL (0-199) 01/26/17 04:00 LDL Cholesterol Direct 103 mg/dL (0-129) 01/26/17 04:00 HDL Cholesterol 44 mg/dL (30-70) 01/26/17 04:00 TSH 3rd Generation 0.31 mIU/L (0.46-4.68) L 01/26/17 04:00 Hepatitis A IgM Ab Negative (NEGATIVE) 01/25/17 11:31 Hep Bs Antigen Negative (NEGATIVE) 01/25/17 11:31 Hep B Core IgM Ab Negative (NEGATIVE) 01/25/17 11:31 Hepatitis C Antibody Negative (NEGATIVE) 01/25/17 11:31 - Hospital Course Hospital Course: Upon hospital admission: 41 year old female with PMHx of lupus, CHF, HTN, fibromyalgia, kidney stones, depression presents with SOB. Patient reports she went to sleep at 7:30 pm last night with no issues and and woke up at 11 pm gasping for air. She admits this has happened in the past. She has not taken any of her medications for the past 2 weeks in "anticipation" of her bariatric surgery that took place 01/22/17. Patient admits to associated cough for 1 week that is productive of green phlegm. Denies leg swelling, fevers, chills, nausea , vomiting, sore throat, nasal congestion. She denies "heart chest pain", but admits to "lung chest pain" associated to pneumonia. Chest pain is present when she coughs and at rest. Pain is described as "soreness/burning" with no radiation. She denies sick contacts or recent travel. PMHx: lupus, CHF, HTN, fibromyalgia, kidney stones, depression. SHx: chucky (1997), laparascopy, lap band (2007), appendectomy (2008), lipoma resection, IVC filter 2003, knee arthroscopy 2012, c section 2005, tubal ligation (2012), ablation (2012), cath 2009, hysterectomy (2013). Allergies: Plaquenil. Social Hx: Denies tobacco, ETOH, drug abuse. Family Hx: mother with DM, maternal and paternal GM with DM. PMD: Dr. Mora Cardio: Dr. Montenegro Pulm: Dr. Olivares During hospital course, the patient was evaluated and treated for the following : (1) Acute on chronic systolic and diastolic heart failure, NYHA class 3 01/27: ECHO - EF 25-30%, dilated LV, moderate MR, mild TR. see full report. Cardiology consult, Dr. Self, recommended life vest. F/u with Dr. Self for possible BiV AICD. Cardiology Consult, Dr. Montenegro, recommended adjusting betablocker dose. hold ARB due to relative hypotension. continue diuretic. Recent evaluation of LV function last year showed LVEF 40%, EF from echo now consistent with previous cardomyopathy from a few years ago. 3 hospitalizations for likely dyspnea and possible heart failure. Patient with history of CHF, off meds for 2 weeks. Pro BNP on admission 2220. CXR shows cardiomegaly. ECHO 08/2015 showed EF ~50%. Patient tx with Lasix 60 mg IVP daily , Coreg 6.25 mg PO Q12, and Losartan 100 mg PO daily. (2) Chest pain with PEDRO/ EKG - negative x3. ASA 325 mg PO daily provided on admission. Later stopped and tx with Coreg 25 mg PO BID. (3) Dyspnea where the pts SOB greatly improved with diuresis. Consult placed to Pulmonology, Dr. Olivares, who knows the patient very well. Pt with D- Dimer elevated and subsequent Chest CTA: 1. No definite CT evidence of pulmonary embolism. 2. Findings compatible with asymmetric pulmonary edema, mildly increased from previous examination. Superimposed pneumonia not excluded. 3. Incidental/non-acute findings are described above. (4) Bariatric surgery with Recent gastric bypass surgery on . Pt advised by bariatric surgeon to consume low volumes of clear liquids for the next 1-2 weeks (30cc every 15minutes). Bariatric Diet provided along with FA, MVI, Thiamine. HELD anticoagulation for 7 days s/p bariatric surgery ( may resume 01/29). Hold ASA, Hold Heparin. (5) Elevated LFTs for which Hep panel negative for HepA, B, or C. (6) HTN (hypertension) tx with Lasix 60 mg IVP daily, Coreg 25 mg PO BID (home med), and Losartan 100 mg PO daily (home med). (7) Depression tx with Effexor 225 mg PO Daily, Turslv91 mg PO HS, and Trazodone 50 mg PO HS for difficulty sleeping. (8) Anxiety tx with Ativan 1 mg PO TID PRN (9) H/O systemic lupus erythematosus (SLE) tx with home med: Azathioprine 50 mg PO daily. (10) History of fibromyalgia tx with home med Tramadol 50 mg PO TID. Upon hospital discharge, the patient was provided with the following instructions: Patient is stable for discharge per Dr. Herrera. Patient should resume all medications as outlined in this document. Additionally, patient should take the new medications listed below (scripts provided). 1. Please make an appointment and follow up with your Primary Doctor, Dr. Mora within one week of discharge. 2. Please make an appointment and follow up with your Certified Nurse Aide, Dr. Montenegro within one week of discharge. He will monitor your CHF and make adjustments to your medications as needed. 3. Please make an appointment and follow up with your Certified Nurse Aide, Dr. Self within one week of discharge. He will monitor your Life Vest and evaluate your for possible Bi-Ventricular AICD placement in the future. Patient should return to ED immediately if symptoms return or worsen. Instructions discussed with patient who understood and agreed. Newly prescribed medications: Albuterol 0.5% 2.5mg IH Q6H PRN, wheezing Ventolin HFA 90mcg IH Q4H PRN, wheezing Coreg 6.25mg PO Q12H #30days Lasix 40mg PO daily #30days Aldactone 25mg PO daily #30days Neurontin 600mg PO TID #30days Imuran 50mg PO daily #30days Percocet 5/325mg 1tab PO Q8H PRN, pain This is a summary of the patient's hospital admission, see chart for comprehensive detail. - Date & Time of H&P Date of H&P: 01/25/17 Time of H&P: 06:50 Discharge Exam - Additional Findings Additional findings: - Constitutional Appears: No Acute Distress - Head Exam Head Exam: NORMAL INSPECTION, NORMOCEPHALIC - Eye Exam Eye Exam: EOMI, Normal appearance Pupil Exam: NORMAL ACCOMODATION - ENT Exam ENT Exam: Mucous Membranes Moist, Normal Exam - Neck Exam Neck exam: Positive for: Full Rom, Normal Inspection - Respiratory Exam Respiratory Exam: Rales. absent: Rhonchi, Wheezes, Respiratory Distress. - Cardiovascular Exam Cardiovascular Exam: REGULAR RHYTHM, +S1, +S2 - GI/Abdominal Exam GI & Abdominal Exam: Normal Bowel Sounds, Soft. absent: Distended, Tenderness - Extremities Exam Extremities exam: Positive for: full ROM, normal inspection. Negative for: tenderness -4 papules noted on R arm - RESOLVED - Back Exam Back exam: NORMAL INSPECTION - Neurological Exam Neurological exam: Alert, Oriented x3 - Psychiatric Exam Psychiatric exam: Normal Affect, Normal Mood - Skin Skin Exam: Dry, Normal Color, Warm Discharge Plan - Discharge Medications Prescriptions: Albuterol 0.5% [Albuterol 0.5% Inhal Soha (2.5 mg/0.5 ml) UD] 2.5 mg IH Q6 PRN # 1 bottle PRN Reason: Wheezing Albuterol HFA [Ventolin HFA 90 mcg/actuation (8 g)] 0.09 mg IH Q4 PRN #1 puff PRN Reason: Wheezing Carvedilol [Coreg] 6.25 mg PO Q12H 30 Days Furosemide [Lasix] 40 mg PO DAILY 30 Days Gabapentin [Neurontin] 600 mg PO TID 30 Days Spironolactone [Aldactone] 25 mg PO DAILY #30 tab azaTHIOprine [Imuran] 50 mg PO DAILY 30 Days oxyCODONE/Acetaminophen [Percocet 5/325 mg Tab] 1 tab PO Q8H PRN #10 tab PRN Reason: Pain, Severe (8-10) - Follow Up Plan Condition: STABLE Disposition: HOME/ ROUTINE Instructions: Spironolactone (By mouth), Azathioprine (By mouth), Furosemide ( By mouth), Oxycodone/Acetaminophen (By mouth), Albuterol (By breathing), Gabapentin (By mouth), Carvedilol (By mouth), Heart Failure (DC), Pulmonary Edema (DC) Additional Instructions: Patient is stable for discharge per Dr. Herrera. Patient should resume all medications as outlined in this document. Additionally, patient should take the new medications listed below (scripts provided). 1. Please make an appointment and follow up with your Primary Doctor, Dr. Mora within one week of discharge. 2. Please make an appointment and follow up with your Certified Nurse Aide, Dr. Montenegro within one week of discharge. He will monitor your CHF and make adjustments to your medications as needed. 3. Please make an appointment and follow up with your Certified Nurse Aide, Dr. Self within one week of discharge. He will monitor your Life Vest and evaluate your for possible Bi-Ventricular AICD placement in the future. Patient should return to ED immediately if symptoms return or worsen. Instructions discussed with patient who understood and agreed. Newly prescribed medications: Albuterol 0.5% 2.5mg IH Q6H PRN, wheezing Ventolin HFA 90mcg IH Q4H PRN, wheezing Coreg 6.25mg PO Q12H #30days Lasix 40mg PO daily #30days Aldactone 25mg PO daily #30days Neurontin 600mg PO TID #30days Imuran 50mg PO daily #30days Percocet 5/325mg 1tab PO Q8H PRN, pain Referrals: Jenni Self MD [Staff Provider] - Morgan Montenegro MD [Staff Provider] - <Efra Herrera - Last Filed: 01/30/17 08:49> Provider - Provider Date of Admission: 01/26/17 16:18 Attending physician: Jassi Guzman MD Hospital Course - Lab Results Lab Results: Micro Results 01/27/17 Unknown Naris MRSA Culture - Final MRSA NOT DETECTED Most Recent Lab Values WBC 10.4 K/uL (4.8-10.8) 01/28/17 07:09 RBC 4.45 Mil/uL (3.80-5.20) 01/28/17 07:09 Hgb 11.4 g/dL (11.0-16.0) 01/28/17 07:09 Hct 35.1 % (34.0-47.0) 01/28/17 07:09 MCV 78.9 fL (81.0-99.0) L 01/28/17 07:09 MCH 25.6 pg (27.0-31.0) L 01/28/17 07:09 MCHC 32.5 g/dL (33.0-37.0) L 01/28/17 07:09 RDW 15.4 % (11.5-14.5) H 01/28/17 07:09 Plt Count 443 K/uL (130-400) H 01/28/17 07:09 MPV 8.3 fL (7.2-11.7) 01/28/17 07:09 Neut % (Auto) 57.2 % (50.0-75.0) 01/28/17 07:09 Lymph % (Auto) 27.8 % (20.0-40.0) 01/28/17 07:09 Door % (Auto) 6.8 % (0.0-10.0) 01/28/17 07:09 Eos % (Auto) 7.6 % (0.0-4.0) H 01/28/17 07:09 Baso % (Auto) 0.6 % (0.0-2.0) 01/28/17 07:09 Neut # 6.0 K/uL (1.8-7.0) 01/28/17 07:09 Lymph # 2.9 K/uL (1.0-4.3) 01/28/17 07:09 Door # 0.7 K/uL (0.0-0.8) 01/28/17 07:09 Eos # 0.8 K/uL (0.0-0.7) H 01/28/17 07:09 Baso # 0.1 K/uL (0.0-0.2) 01/28/17 07:09 Neutrophils % (Manual) 70 % (50-75) 01/26/17 06:38 Band Neutrophils % 8 % (0-2) H 01/26/17 06:38 Lymphocytes % (Manual) 10 % (20-40) L 01/26/17 06:38 Monocytes % (Manual) 7 % (0-10) 01/26/17 06:38 Eosinophils % (Manual) 2 % (0-4) 01/26/17 06:38 Myelocytes % 2 % (0-0) H 01/26/17 06:38 Toxic Granulation Present 01/26/17 06:38 Platelet Estimate Normal (NORMAL) 01/26/17 06:38 Large Platelets Present 01/26/17 06:38 Giant Platelets Present 01/26/17 06:38 Hypochromasia (manual) Slight 01/26/17 06:38 Poikilocytosis (manual Slight 01/26/17 06:38 Anisocytosis (manual) Slight 01/26/17 06:38 Target Cells Slight 01/26/17 06:38 PT 11.9 SECONDS (9.7-12.2) 01/25/17 01:45 INR 1.1 01/25/17 01:45 APTT 34 SECONDS (21-34) 01/25/17 01:45 D-Dimer, Quantitative 1093 ng/mlDDU (0-243) H 01/25/17 01:45 Sodium 137 mmol/L (132-148) 01/28/17 07:09 Potassium 3.5 mmol/L (3.6-5.2) L 01/28/17 07:09 Chloride 92 mmol/L (98-107) L 01/28/17 07:09 Carbon Dioxide 36 mmol/L (22-30) H 01/28/17 07:09 Anion Gap 13 (10-20) 01/28/17 07:09 BUN 14 mg/dL (7-17) 01/28/17 07:09 Creatinine 0.7 MG/DL (0.7-1.2) 01/28/17 07:09 Est GFR ( Amer) > 60 01/28/17 07:09 Est GFR (Non-Af Amer) > 60 01/28/17 07:09 Random Glucose 87 mg/dL (65-105) 01/28/17 07:09 Hemoglobin A1c 6.5 % (4.2-6.5) 01/26/17 06:38 Calcium 8.5 mg/dl (8.6-10.4) L 01/28/17 07:09 Phosphorus 4.2 mg/dL (2.5-4.5) 01/28/17 07:29 Magnesium 2.4 mg/dL (1.6-2.3) H 01/28/17 07:09 Total Bilirubin 1.2 mg/dL (0.2-1.3) 01/28/17 07:09 AST 22 U/L (14-36) 01/28/17 07:09 ALT 38 U/L (9-52) 01/28/17 07:09 Alkaline Phosphatase 69 U/L (38-126) 01/28/17 07:09 Total Creatine Kinase 81 U/L (30-135) 01/26/17 04:00 CK-MB (Mass) 0.30 ng/mL (0.0-3.38) 01/26/17 04:00 Troponin I < 0.0120 ng/mL (0.00-0.120) 01/25/17 01:45 Troponin I, Quant < 0.0120 ng/mL (0.00-0.120) 01/26/17 04:00 NT-Pro-B Natriuret Pep 2220 pg/mL (0-450) H 01/25/17 01:45 Total Protein 7.2 g/dL (6.3-8.3) 01/28/17 07:09 Albumin 3.9 g/dL (3.5-5.0) 01/28/17 07:09 Globulin 3.2 gm/dL (2.2-3.9) 01/28/17 07:09 Albumin/Globulin Ratio 1.2 (1.0-2.1) 01/28/17 07:09 Triglycerides 85 mg/dL (0-149) D 01/26/17 04:00 Cholesterol 173 mg/dL (0-199) 01/26/17 04:00 LDL Cholesterol Direct 103 mg/dL (0-129) 01/26/17 04:00 HDL Cholesterol 44 mg/dL (30-70) 01/26/17 04:00 TSH 3rd Generation 0.31 mIU/L (0.46-4.68) L 01/26/17 04:00 Hepatitis A IgM Ab Negative (NEGATIVE) 01/25/17 11:31 Hep Bs Antigen Negative (NEGATIVE) 01/25/17 11:31 Hep B Core IgM Ab Negative (NEGATIVE) 01/25/17 11:31 Hepatitis C Antibody Negative (NEGATIVE) 01/25/17 11:31 Attending/Attestation - Attestation I have personally seen and examined this patient.: Yes I have fully participated in the care of the patient.: Yes I have reviewed all pertinent clinical information, including history, physical exam and plan: Yes Notes (Text): Medical attending: Patient was seen and examined by me, agrees the above note by medical claims processor. While here she's been evaluated by her museum guide as well as review engineer. She now is wearing a LifeVest, and as we explained to her very carefully her ejection fraction on the echocardiogram is unfortunately come back down low again. She explains to us that she was previously on the LifeVest before however taking medications her ejection fraction did improve and the LifeVest was removed at that time She's can be on Lasix to be taken orally as well as beta alfonso medication, as well as MELINDA inhibitor. It should also be noted that the patient has recently a gastric bypass and has been off of her medications for about 2-1/2 weeks before coming to the hospital. While here she's been given IV Lasix, and it's improved her breathing as well as her lower extremity edema we did get chest x-rays as well showing that the congestion cleared up significantly on her lungs Thank you very much, Efra Herrera
--- NOTE | 2017-01-28 20:51 | CP.PCM.CON ---
History of Present Illness - History of Present Illness History of Present Illness: CC: "shortness of breath" 41 year old female with PMHx of lupus, CHF, HTN, fibromyalgia, kidney stones, depression presents with SOB. Patient reports she went to sleep at 7:30 pm last night with no issues and and woke up at 11 pm gasping for air. She admits this has happened in the past. She has not taken any of her medications for the past 2 weeks in "anticipation" of her bariatric surgery that took place 01/22/17. Patient admits to associated cough for 1 week that is productive of green phlegm. Denies leg swelling, fevers, chills, nausea, vomiting, sore throat, nasal congestion. She denies "heart chest pain", but admits to "lung chest pain " associated to pneumonia. Chest pain is present when she coughs and at rest. Pain is described as "soreness/burning" with no radiation. She denies sick contacts or recent travel. PMHx: lupus, CHF, HTN, fibromyalgia, kidney stones, depression. SHx: chucky (1997), laparascopy, lap band (2007), appendectomy (2008), lipoma resection, IVC filter 2003, knee arthroscopy 2012, c section 2005, tubal ligation (2012), ablation (2012), cath 2009, hysterectomy (2013). Allergies: Plaquenil. Social Hx: Denies tobacco, ETOH, drug abuse. Family Hx: mother with DM, maternal and paternal GM with DM. PMD: Dr. Mora Cardio: Dr. Montenegro Pulm: Dr. Olivares Review of Systems - Review of Systems All systems: reviewed and no additional remarkable complaints except Review of Systems: Increasing cough noted associated with the shortness of breath and wheezing. No chest pain. Bilateral leg swelling noted. Past Patient History - Infectious Disease Hx of Infectious Diseases: None - Past Medical History & Family History Past Medical History?: Yes - Past Social History Smoking Status: Never Smoked Alcohol: None Drugs: Denies - CARDIAC Hx Cardia Arrhythmia: Yes Hx Congestive Heart Failure: Yes Hx Hypercholesterolemia: Yes Hx Hypertension: Yes - PULMONARY Hx Asthma: Yes - NEUROLOGICAL Hx Neurological Disorder: No - HEENT Hx HEENT Problems: No - RENAL Hx Chronic Kidney Disease: No - ENDOCRINE/METABOLIC Hx Endocrine Disorders: Yes Hx Diabetes Mellitus Type 2: Yes (??) Hx Systemic Lupus Erythematosus: Yes - HEMATOLOGICAL/ONCOLOGICAL Hx Blood Disorders: No - INTEGUMENTARY Hx Dermatological Problems: Yes Hx Eczema: Yes - MUSCULOSKELETAL/RHEUMATOLOGICAL Hx Musculoskeletal Disorders: Yes Hx Falls: No Other/Comment: HIP REPLACEMENT 2014 - GASTROINTESTINAL Hx Gastrointestinal Disorders: No - GENITOURINARY/GYNECOLOGICAL Hx Genitourinary Disorders: No - PSYCHIATRIC Hx Anxiety: Yes Hx Paranoia: Yes Hx Substance Use: No - SURGICAL HISTORY Hx Appendectomy: Yes Hx Cholecystectomy: Yes Hx Gastric Bypass Surgery: Yes Other/Comment: HIP REPLACEMENT X3 - ANESTHESIA Hx Anesthesia: Yes Hx Anesthesia Reactions: Yes (Developed rash 2and 1/2 weeks after hip surgery similair to now) Hx Malignant Hyperthermia: No Meds Home Medications: Home Medication List Medication Instructions Recorded Confirmed Type RX: Albuterol 0.5% [Albuterol 0.5% 2.5 mg IH Q6 PRN #1 bottle 01/28/17 Rx Inhal Soha (2.5 mg/0.5 ml) UD] RX: Albuterol HFA [Ventolin HFA 90 0.09 mg IH Q4 PRN #1 puff 01/28/17 Rx mcg/actuation (8 g)] RX: Carvedilol [Coreg] 6.25 mg PO Q12H 30 Days 01/28/17 Rx RX: Furosemide [Lasix] 40 mg PO DAILY 30 Days 01/28/17 Rx RX: Gabapentin [Neurontin] 600 mg PO TID 30 Days 01/28/17 Rx RX: Spironolactone [Aldactone] 25 mg PO DAILY #30 tab 01/28/17 Rx RX: azaTHIOprine [Imuran] 50 mg PO DAILY 30 Days 01/28/17 Rx RX: oxyCODONE/Acetaminophen 1 tab PO Q8H PRN #10 tab 01/28/17 Rx [Percocet 5/325 mg Tab] Allergies/Adverse Reactions: Allergies Allergy/AdvReac Type Severity Reaction Status Date / Time propofol Allergy Intermediate RASH Verified 01/27/17 12:38 hydroxychloroquine sulfate Allergy RASH Verified 01/25/17 13:17 [From Plaquenil] FRUITS Allergy Mild SHORTNESS Uncoded 01/25/17 13:17 OF BREATH "anastesia" Allergy RASH Uncoded 01/25/17 13:17 Physical Exam - Constitutional Additional comments: Vital signs reviewed No neck vein distention noted bilateral wheezing noted CVS regular heart sound, no murmur noted Abdomen soft, nontender. 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, no functional neurological deficit Results - Vital Signs Recent Vital Signs: Last Vital Signs Temp 98.2 F 01/28/17 15:00 Pulse 70 01/28/17 16:00 Resp 20 01/28/17 15:00 BP 101/66 01/28/17 15:00 Pulse Ox 98 01/28/17 15:00 - Labs Result Diagrams: 01/28/17 07:09 01/28/17 07:09 Labs: Laboratory Results - last 24 hr 01/28/17 01/28/17 07:09 07:29 WBC 10.4 RBC 4.45 Hgb 11.4 Hct 35.1 MCV 78.9 L MCH 25.6 L MCHC 32.5 L RDW 15.4 H Plt Count 443 H MPV 8.3 Neut % (Auto) 57.2 Lymph % (Auto) 27.8 [place] % (Auto) 6.8 Eos % (Auto) 7.6 H Baso % (Auto) 0.6 Neut # 6.0 Lymph # 2.9 [place] # 0.7 Eos # 0.8 H Baso # 0.1 Sodium 137 Potassium 3.5 L Chloride 92 L Carbon Dioxide 36 H Anion Gap 13 BUN 14 Creatinine 0.7 Est GFR ( Amer) > 60 Est GFR (Non-Af Amer) > 60 Random Glucose 87 Calcium 8.5 L Phosphorus 4.2 Magnesium 2.4 H Total Bilirubin 1.2 AST 22 ALT 38 Alkaline Phosphatase 69 Total Protein 7.2 Albumin 3.9 Globulin 3.2 Albumin/Globulin Ratio 1.2 Assessment & Plan (1) Acute on chronic systolic and diastolic heart failure, NYHA class 3 Assessment and Plan: Patient possibly has a decompensated heart failure. Bronchial asthma clinic is stable. We'll continue the Lasix Lasix We'll follow the patient Status: Acute (2) Bronchial asthma Status: Acute (3) CHF (congestive heart failure) Status: Acute
--- NOTE | 2017-01-28 20:51 | CP.PCM.PN ---
Subjective - Date & Time of Evaluation Date of Evaluation: 01/27/17 Time of Evaluation: 20:51 - Subjective Subjective: Is clearly stable at this time, increasing shortness of breath which is improving at this time. No chest pain noted, denies any nausea vomiting. Objective - Vital Signs/Intake and Output Vital Signs (last 24 hours): Temp Pulse Resp BP Pulse Ox 98.2 F 70 20 101/66 98 01/28/17 15:00 01/28/17 16:00 01/28/17 15:00 01/28/17 15:00 01/28/17 15:00 Intake and Output: Vital signs reviewed No neck vein distention noted Chest good air entry bilaterally, no wheezing or rales noted CVS regular heart sound, no murmur noted Abdomen soft, nontender. 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 Fluid overload. CHF. Bronchial asthma stable at this time. Continue the current treatment. We'll follow the patient as an outpatient
--- NOTE | 2017-02-01 10:30 | PCM.HF ---
Heart Failure Core Measure - Heart Failure Ejection Fraction: Less Than 40 % Left Ventricular Function to be assessed after discharge: Yes MELINDA Inhibitor Prescribed: No Contraindication/Reason for not providing: ARB Rx Beta-Piotr Prescribed: Carvedilol Angiotensin II Receptor Piotr Prescribed: Yes AnticoagulationTherapy for Atrial Fibrillation/Atrialflutter: No Contraindication/Reason for not providing: No AFib Aldosterone Antagonist Prescribed: Yes Contraindication/Reason for not providing: on Discharge Hydralazine Nitrate Prescribed: No Contraindication/Reason for not providing: Lasix used Implantable Cardioverter Defibrillator Therapy: No Contraindication/Reason for not providing: Possible rec 2-3 months after discharge. Has life-vest. Cardiac Resynchronization Therapy Prescribed: No Contraindication/Reason for not providing: Possible rec 2-3 months after discharge. Has life-vest. - Follow up Will be discharged to: Home Follow Up Date (must be within 7 days from discharge): 02/02/17 Follow Up Time: 09:00
== END 2017-01-28 17:15 | disposition home or self-care (01) | DRG 291 ==
LOC: C.ER 01:07 → C.9E 05:06 → C.9I 08:00 → OBSVTOIN 01-26 16:18 → C.6T 01-27 17:33
PROVIDERS: ADMIT Family Medicine; ATTEND Family Medicine
DX: I11.0 Hypertensive heart disease with heart failure (principal); J18.9 Pneumonia, unspecified organism; Z68.41 Body mass index [BMI] 40.0-44.9, adult; M32.9 Systemic lupus erythematosus, unspecified; I42.9 Cardiomyopathy, unspecified; F41.9 Anxiety disorder, unspecified; I50.43 Acute on chronic combined systolic (congestive) and diastolic (congestive) heart failure; J45.909 Unspecified asthma, uncomplicated; K59.00 Constipation, unspecified; M79.7 Fibromyalgia; Z87.442 Personal history of urinary calculi; Z96.649 Presence of unspecified artificial hip joint; Z98.84 Bariatric surgery status; E11.9 Type 2 diabetes mellitus without complications; F32.89 Other specified depressive episodes

== ENCOUNTER 2017-03-04 11:43 | Observation (INO) | payer MEDICARE, OTHER ==
[2017-03-04 11:43] VITALS: PULSE 79; BMI 41.3
[2017-03-04] MEDS ORDERED: Aspirin 325 mg EC Tablets PO STA (12:21)
--- NOTE | 2017-03-04 12:25 | C.PDOC ---
History Of Present Illness 41 y/o female with PMH CHF, unstable angina and HTN presents to the ED with complains of left arm pain radiating to left chest and intermittent sensation of coolness and tingling to left arm x3 days. Pt discussed symptoms with meter reader inspector Dr Montenegro who referred her to ED for evaluation. Pt also reports burning epigastric pain. Denies SOB, nausea, vomiting or any other complaints. Time Seen by Provider: 03/04/17 12:15 Chief Complaint (Nursing): Chest Pain History Per: Patient History/Exam Limitations: no limitations Onset/Duration Of Symptoms: Days Current Symptoms Are (Timing): Still Present Severity: Moderate Modifying Factors: None Alleviating Factors: None Recent travel outside of the [place]: No Past Medical History Reviewed: Historical Data, Nursing Documentation, Vital Signs Vital Signs: Last Vital Signs Temp 98.7 F 03/04/17 12:10 Pulse 85 03/04/17 14:00 Resp 14 03/04/17 14:00 BP 112/69 03/04/17 14:00 Pulse Ox 98 03/04/17 14:00 - Medical History PMH: Anxiety, Asthma, Cardia Arrhythmia, CHF, Fibromyalgia, HTN, Hypercholesterolemia, Paranoia Surgical History: Appendectomy, Cholecystectomy - [facility] Procedures OCCUPATIONAL THERAPY (02/09/14) PHYSICAL THERAPY NEC (02/03/14) Family History: States: Unknown Family Hx, Diabetes, Hypertension - Social History Hx Tobacco Use: No Hx Alcohol Use: No Hx Substance Use: No - Immunization History Hx Tetanus Toxoid Vaccination: No Hx Influenza Vaccination: No Hx Pneumococcal Vaccination: No Review Of Systems Except As Marked, All Systems Reviewed And Found Negative. Constitutional: Negative for: Fever Respiratory: Negative for: Shortness of Breath Gastrointestinal: Positive for: Abdominal Pain. Negative for: Nausea, Vomiting Musculoskeletal: Positive for: Arm Pain (left arm pain radiating to left chest; intermittent sensation of coolness and tingling to left arm) Neurological: Negative for: Weakness Physical Exam - Physical Exam Appears: Non-toxic, No Acute Distress, Other (anxious) Skin: Warm, Dry, No Rash Head: Atraumatic, Normacephalic Eye(s): bilateral: Normal Inspection, EOMI Nose: Normal Neck: Normal, Normal ROM, Supple Chest: Symmetrical, No Tenderness, No Ecchymosis, No Subcutaneous Emphysema Cardiovascular: Rhythm Regular (mild tachycardia), No Murmur Respiratory: Normal Breath Sounds, No Rales, No Rhonchi, No Wheezing Gastrointestinal/Abdominal: Normal Exam, Soft, No Tenderness Extremity: Bilateral: Atraumatic, No Pedal Edema, Normal Color And Temperature, Normal ROM Pulses: Left Radial: Normal, Right Radial: Normal Neurological/Psych: Oriented x3, Normal Speech, Normal Cognition, Normal Motor ( equal strength and sensation to extremities), Normal Sensation ED Course And Treatment - Laboratory Results Result Diagrams: 03/04/17 12:56 03/04/17 12:56 Lab Interpretation: No Acute Changes ECG: Interpreted By Me, Viewed By Me, Discussed With B2B Sales Representative ECG Rhythm: Sinus Tachycardia, L BBB (seen on previous EKG) ECG Interpretation: No Changes From Prior Rate From EC (BPM) O2 Sat by Pulse Oximetry: 97 (room air) Pulse Ox Interpretation: Normal - Other Rad CXR X-Ray: Read By Radiologist (Dr Huertas) Interpretation: IMPRESSION: External defibrillator pads obscure evaluation of the underlying parenchyma. Multiple external wires and leads. No focal consolidation, significant pleural effusion, or definite pneumothorax identified. Medical Decision Making Medical Decision Makin y.o female with PMH CHF, unstable angina and HTN complains of chest pain Plan: * EKG * CXR * Labs * ASA Progress: Patient assessed and examined. EKG obtained and reviewed. Patient placed on administrative assistant coordinator. Orders placed for labs including CE and CXR. ASA given. Oxygen given via nasal cannula. Labs reviewed showing negative troponin. CXR read by radiologist: External defibrillator pads obscure evaluation of the underlying parenchyma. Multiple external wires and leads. No focal consolidation, significant pleural effusion, or definite pneumothorax identified. Patient reevaluated and reports mild improvement. She has stable vital signs and NAD Contact meter reader inspector Dr Montenegro who recommends obs admission contact medicine continuous pickling line pickler Dr Vidal and discussed case including labs and cardiology consult. He accepts patient onto service Disposition - Disposition Disposition: HOSPITALIZED Disposition Time: 14:15 Condition: STABLE - POA Present On Arrival: None - Clinical Impression Clinical Impression: Chest pain, H/O CHF - PA / INNER LAYER SCRUBBER TENDER / Resident Statement MD/DO has reviewed & agrees with the documentation as recorded. - Scribe Statement The provider has reviewed the documentation as recorded by the Scribsvitlana Glover All medical record entries made by the Scribe were at my direction and personally dictated by me. I have reviewed the chart and agree that the record accurately reflects my personal performance of the history, physical exam, medical decision making, and the department course for this patient. I have also personally directed, reviewed, and agree with the discharge instructions and disposition. Decision To Admit - Pt Status Changed To: Hospital Disposition Of: Observation - . Bed Request Type: Telemetry Admitting Physician: Dontae Vidal Patient Diagnosis: Chest pain, H/O CHF
[2017-03-04] MEDS ORDERED: Aspirin 325 mg EC Tablets PO ONE (12:53)
--- NOTE | 2017-03-04 12:54 | RAD ---
HISTORY: chest pain COMPARISON: Chest x-ray performed 01/27/17 TECHNIQUE: Chest PA and lateral FINDINGS: LUNGS: No focal consolidation. Please note that chest x-ray has limited sensitivity for the detection of pulmonary masses. PLEURA: No significant pleural effusion identified. No definite pneumothorax . CARDIOVASCULAR: External defibrillator pads obscure evaluation of the underlying parenchyma. Multiple external wires and leads. Heart size appears borderline enlarged. OSSEOUS STRUCTURES: No acute osseous abnormality identified. VISUALIZED UPPER ABDOMEN: Unremarkable. OTHER FINDINGS: None. IMPRESSION: External defibrillator pads obscure evaluation of the underlying parenchyma. Multiple external wires and leads. No focal consolidation, significant pleural effusion, or definite pneumothorax identified.
[2017-03-04 13:00] LABS: BASO # 0.1 K/uL (0.0-0.2); BASO % 0.6 % (0.0-2.0); EOS # 0.3 K/uL (0.0-0.7); EOS % 2.9 % (0.0-4.0); HEMATOCRIT 41.3 % (34.0-47.0); LYMPH # 1.7 K/uL (1.0-4.3); LYMPH % 14.9 % (20.0-40.0); MEAN CELL VOLUME 77.4 fL (81.0-99.0); MEAN CORPUSCULAR HEMOGLOBIN 25.1 pg (27.0-31.0); MEAN CORPUSCULAR HGB CONC 32.4 g/dL (33.0-37.0); MONO # 0.9 K/uL (0.0-0.8); MONO % 8.3 % (0.0-10.0); NRBC % 0.1 % (0.0-2.0); RED CELL DISTRIBUTION WIDTH 15.7 % (11.5-14.5); WHITE BLOOD COUNT 11.1 K/uL (4.8-10.8)
[2017-03-04 13:08] LABS: CHLORIDE 98 mmol/L (98-107); POTASSIUM 3.7 mmol/L (3.6-5.2); RBC URINE 5 /hpf (0-3); SODIUM 136 mmol/L (132-148); URINE BACTERIA RARE (<OCC); URINE BILIRUBIN NEGATIVE (NEGATIVE); URINE BLOOD NEGATIVE (NEGATIVE); URINE COLOR Yellow (YELLOW); URINE GLUCOSE (UA) NORMAL (Normal); URINE KETONE NEGATIVE (NEGATIVE); URINE LEUKOCYTE ESTERASE NEG Leu/uL (Negative); URINE PROTEIN 1+ mg/dL (NEGATIVE); URINE UROBILINOGEN NORMAL mg/dL (0.2-1.0); WBC URINE 6 /hpf (0-5)
[2017-03-04 13:10] LABS: AST/SGOT 26 U/L (14-36); BILIRUBIN,TOTAL 1.4 mg/dL (0.2-1.3); CARBON DIOXIDE 26 mmol/L (22-30); GFR AFRICAN-AMERICAN > 60
[2017-03-04 13:11] LABS: ALB/GLOB RATIO 1.1 (1.0-2.1); ALKALINE PHOSPHATASE 76 U/L (38-126); ALT/SGPT 28 U/L (9-52); BLOOD UREA NITROGEN 9 mg/dL (7-17); CALCIUM 8.9 mg/dl (8.6-10.4); GLUCOSE,RANDOM 100 mg/dL (65-105); TOTAL PROTEIN 7.9 g/dL (6.3-8.3)
[2017-03-04 13:15] LABS: INR 1.1
--- NOTE | 2017-03-04 14:36 | CP.PCM.CON ---
History of Present Illness - History of Present Illness History of Present Illness: I was asked to evaluate patient by the ER. Patient is a 41 year old female with a history of HTN, dilated cardiomyopathy who complains of headache, L arm burning, The patient states symptoms began after taking trazadone. she describes intermittent freezing the burning of the left arm. She had noted headache today. Review of Systems - Constitutional Constitutional: absent: As Per HPI, Anorexia, Chills, Daytime Sleepiness, Excessive Sweating, Fatigue, Fever, Frequent Falls, Headache, Increased Appetite , Lethargy, Malaise, Night Sweats, Snoring, Sleep Apnea, Weight Gain, Weight Loss, Weakness, Other - EENT Eyes: absent: As Per HPI, Blind Spots, Blurred Vision, Change in Vision, Decreased Night Vision, Diplopia, Discharge, Dry Eye, Exophthalmos, Floaters, Irritation, Itchy Eyes, Loss of Peripheral Vision, Pain, Photophobia, Requires Corrective Lenses, Sees Flashes, Spots in Vision, Tunnel Vision, Other Visual Disturbances, Loss of Vision, Other Ears: absent: As Per HPI, Decreased Hearing, Ear Discharge, Ear Pain, Tinnitus, Abnormal Hearing, Disequilibrium, Dizziness, Other Nose/Mouth/Throat: absent: As Per HPI, Epistaxis, Nasal Congestion, Nasal Discharge, Nasal Obstruction, Nasal Trauma, Nose Pain, Post Nasal Drip, Sinus Pain, Sinus Pressure, Bleeding Gums, Change in Voice, Dental Pain, Dry Mouth, Dysphagia, Halitosis, Hoarsness, Lip Swelling, Mouth Lesions, Mouth Pain, Odynophagia, Sore Throat, Throat Swelling, Tongue Swelling, Facial Pain, Neck Pain, Neck Mass, Other - Cardiovascular Cardiovascular: Dyspnea - Gastrointestinal Gastrointestinal: absent: As Per HPI, Abdominal Pain, Belching, Bloating, Change in Bowel Habits, Change in Stool Character, Coffee Ground Emesis, Constipation, Cramping, Diarrhea, Dyspepsia, Dysphagia, Early Satiety, Excessive Flatus, Fecal Incontinence, Heartburn, Hematemesis, Hematochezia, Loose Stools, Melena, Nausea, Odynophagia, Temesmus, Vomiting, Other - Reproductive: Female Reproductive:Female: absent: As Per HPI, Amenorrhea, Amenorrhea/ Control, Currently Menstual, Cycle <21 Days, Cycle >35 Days, Cycle Variable, Menses 1-7 Days, Menses >/= 8 Days, Menses Variable, Cycle > 4 Weeks Between, No Menses for 6 Months, Heavy Menses, Light Menses, Normal Menses, Spotting Between Cycles , S/P Hysterectomy, Menopausal, Post Menopausal, Premenarche, Abnormal Vaginal Bleeding, Dysmenorrhea, Dyspareunia, Genital Lesions, Genital Pruritis, Pelvic Pain, Prolapse Symptoms, Sexual Dysfunction, Vaginal Discharge, Vaginal Dryness , Vaginal Odor, Vaginal Pruritis, Other - Integumentary Integumentary: Sores - Neurological Neurological: Headaches - Psychiatric Psychiatric: Anxiety - Endocrine Endocrine: absent: As Per HPI, Change in Body Appearance, Change in Libido, Cold Intolorance, Deepening of Voice, Excessive Sweating, Fatigue, Flushing, Heat Intolorance, Increase in Ring/Shoe/Hat Size, Palpitations, Polydipsia, Polyphagia, Polyuria, Other - Hematologic/Lymphatic Hematologic: absent: As Per HPI, Easy Bleeding, Easy Bruising, Lymphadenopathy, Other Past Patient History - Infectious Disease Hx of Infectious Diseases: None - Past Medical History & Family History Past Medical History?: Yes - Past Social History Smoking Status: Never Smoked - CARDIAC Hx Cardia Arrhythmia: Yes Hx Congestive Heart Failure: Yes Hx Hypercholesterolemia: Yes Hx Hypertension: Yes - PULMONARY Hx Asthma: Yes - NEUROLOGICAL Hx Neurological Disorder: No - HEENT Hx HEENT Problems: No - RENAL Hx Chronic Kidney Disease: No - ENDOCRINE/METABOLIC Hx Endocrine Disorders: Yes Hx Diabetes Mellitus Type 2: Yes (??) Hx Systemic Lupus Erythematosus: Yes - HEMATOLOGICAL/ONCOLOGICAL Hx Blood Disorders: No - INTEGUMENTARY Hx Dermatological Problems: Yes Hx Eczema: Yes - MUSCULOSKELETAL/RHEUMATOLOGICAL Hx Musculoskeletal Disorders: Yes Hx Falls: No Other/Comment: HIP REPLACEMENT 2014 - GASTROINTESTINAL Hx Gastrointestinal Disorders: No - GENITOURINARY/GYNECOLOGICAL Hx Genitourinary Disorders: No - PSYCHIATRIC Hx Anxiety: Yes Hx Paranoia: Yes Hx Substance Use: No - SURGICAL HISTORY Hx Appendectomy: Yes Hx Cholecystectomy: Yes - ANESTHESIA Hx Anesthesia: Yes Hx Anesthesia Reactions: Yes (Developed rash 2and 1/2 weeks after hip surgery similair to now) Hx Malignant Hyperthermia: No Meds Allergies/Adverse Reactions: Allergies Allergy/AdvReac Type Severity Reaction Status Date / Time propofol Allergy Intermediate RASH Verified 01/27/17 12:38 hydroxychloroquine sulfate Allergy RASH Verified 01/25/17 13:17 [From Plaquenil] FRUITS Allergy Mild SHORTNESS Uncoded 01/25/17 13:17 OF BREATH "anastesia" Allergy RASH Uncoded 01/25/17 13:17 - Medications Medications: Current Medications Sodium Chloride (Sodium Chloride 0.9%) 1,000 mls @ 100 mls/hr IV .Q10H CHARLEEN Physical Exam - Constitutional Appears: Non-toxic - Head Exam Head Exam: NORMAL INSPECTION - Eye Exam Eye Exam: Normal appearance - ENT Exam ENT Exam: Mucous Membranes Moist - Neck Exam Neck exam: Positive for: Normal Inspection - Respiratory Exam Respiratory Exam: NORMAL BREATHING PATTERN - Cardiovascular Exam Cardiovascular Exam: REGULAR RHYTHM - GI/Abdominal Exam GI & Abdominal Exam: Normal Bowel Sounds - Rectal Exam Rectal Exam: Deferred - Extremities Exam Extremities exam: Positive for: normal inspection - Back Exam Back exam: NORMAL INSPECTION - Neurological Exam Neurological exam: Alert, Oriented x3 - Psychiatric Exam Psychiatric exam: Normal Affect - Skin Skin Exam: Normal Color Results - Vital Signs Recent Vital Signs: Last Vital Signs Temp 98.7 F 03/04/17 12:10 Pulse 85 03/04/17 14:00 Resp 14 03/04/17 14:00 BP 112/69 03/04/17 14:00 Pulse Ox 98 03/04/17 14:00 - Labs Result Diagrams: 03/04/17 12:56 03/04/17 12:56 Labs: Laboratory Results - last 24 hr 03/04/17 03/04/17 03/04/17 12:56 12:56 12:56 WBC 11.1 H RBC 5.34 H Hgb 13.4 D Hct 41.3 MCV 77.4 L MCH 25.1 L MCHC 32.4 L RDW 15.7 H Plt Count 433 H MPV 9.0 Neut % (Auto) 73.3 Lymph % (Auto) 14.9 L [place] % (Auto) 8.3 Eos % (Auto) 2.9 Baso % (Auto) 0.6 Neut # 8.1 H Lymph # 1.7 [place] # 0.9 H Eos # 0.3 Baso # 0.1 PT 12.0 INR 1.1 APTT 41 H Sodium Potassium Chloride Carbon Dioxide Anion Gap BUN Creatinine Est GFR ( Amer) Est GFR (Non-Af Amer) Random Glucose Calcium Total Bilirubin AST ALT Alkaline Phosphatase Troponin I NT-Pro-B Natriuret Pep Total Protein Albumin Globulin Albumin/Globulin Ratio Urine Color Yellow Urine Clarity Hazy Urine pH 6.0 Ur Specific [place] 1.016 Urine Protein 1+ H Urine Glucose (UA) Normal Urine Ketones Negative Urine Blood Negative Urine Nitrate Negative Urine Bilirubin Negative Urine Urobilinogen Normal Ur Leukocyte Esterase Neg Urine WBC (Auto) 6 H Urine RBC (Auto) 5 H Ur Squamous Epith Cells 33 H Urine Bacteria Rare 03/04/17 12:56 WBC RBC Hgb Hct MCV MCH MCHC RDW Plt Count MPV Neut % (Auto) Lymph % (Auto) [place] % (Auto) Eos % (Auto) Baso % (Auto) Neut # Lymph # [place] # Eos # Baso # PT INR APTT Sodium 136 Potassium 3.7 Chloride 98 Carbon Dioxide 26 Anion Gap 16 BUN 9 Creatinine 0.6 L Est GFR ( Amer) > 60 Est GFR (Non-Af Amer) > 60 Random Glucose 100 Calcium 8.9 Total Bilirubin 1.4 H AST 26 ALT 28 Alkaline Phosphatase 76 Troponin I < 0.0120 NT-Pro-B Natriuret Pep 2730 H Total Protein 7.9 Albumin 4.2 Globulin 3.7 Albumin/Globulin Ratio 1.1 Urine Color Urine Clarity Urine pH Ur Specific [place] Urine Protein Urine Glucose (UA) Urine Ketones Urine Blood Urine Nitrate Urine Bilirubin Urine Urobilinogen Ur Leukocyte Esterase Urine WBC (Auto) Urine RBC (Auto) Ur Squamous Epith Cells Urine Bacteria - EKG Data EKG Interpreted by: Myself Assessment & Plan (1) Headache Assessment and Plan: recommend CT scan. does not have neurological deficits on exam at this time. Status: Acute (2) Cardiomyopathy Assessment and Plan: well compensated at present. wearing her Lifevest. Status: Acute
--- NOTE | 2017-03-04 16:18 | CT ---
PROCEDURE: CT HEAD WITHOUT CONTRAST. HISTORY: headache left arm pain, numbness COMPARISON: None available. TECHNIQUE: Axial computed tomography images were obtained through the head/brain without intravenous contrast. Radiation dose: Total exam DLP = 808.41 mGy-cm. This CT exam was performed using one or more of the following dose reduction techniques: Automated exposure control, adjustment of the mA and/or kV according to patient size, and/or use of iterative reconstruction technique. FINDINGS: HEMORRHAGE: No intracranial hemorrhage. BRAIN: No mass effect or edema. The crook-white matter differentiation appears intact. Please note that MRI with diffusion imaging is more sensitive in the detection of acute ischemic event. VENTRICLES: No hydrocephalus. CALVARIUM: Unremarkable. PARANASAL SINUSES: Unremarkable as visualized. No significant inflammatory changes. MASTOID AIR CELLS: Unremarkable as visualized. No inflammatory changes. OTHER FINDINGS: None. IMPRESSION: No acute intracranial pathology identified. Please note that MRI with diffusion imaging is more sensitive in the detection of acute ischemic event.
[2017-03-04] MEDS ORDERED: Oxycodone/Acetaminophen 5/325 mg Tab PO PRN (17:34)
[2017-03-04] MEDS ORDERED: Albuterol HFA 90 mcg/actuation (8 g) IH PRN ×2 (17:34→19:54)
[2017-03-04] MEDS ORDERED: Albuterol 0.083% Inhal Sol (2.5 mg/3 mL) UD IH PRN ×2 (17:34→20:15)
[2017-03-04] MEDS: Sodium Chloride 0.9% 1,000 ML IV SCH (20:27)
[2017-03-05] MEDS: Sodium Chloride 0.9% 1,000 ML IV SCH ×3 (00:55→10:13)
--- NOTE | 2017-03-05 01:19 | CP.PCM.HP ---
History of Present Illness - History of Present Illness History of Present Illness: Cheif complain: chest pain, numbness in left arm HPI: 41 y/o female with PMH of fibromyalgia, CHF with low Ef of 25 percent, unstable angina and HTN presents to the ED with complains of left arm pain radiating to left chest and intermittent sensation of coolness and tingling to left arm x3 days. Pt discussed symptoms with toilet products molder Dr Montenegro who referred her to ED for evaluation. Pt also reports burning epigastric pain. she was prescribed trazadone by her rhematologist after taking which she reports she developed these symtoms.Denies SOB, nausea, vomiting or any other complaints Present on Admission - Present on Admission Any Indicators Present on Admission: No Review of Systems - Review of Systems Systems not reviewed;Unavailable: Acuity of Condition - Constitutional Constitutional: Fatigue, Lethargy, Malaise, Weakness - EENT Eyes: absent: As Per HPI, Blind Spots, Blurred Vision, Change in Vision, Decreased Night Vision, Diplopia, Discharge, Dry Eye, Exophthalmos, Floaters, Irritation, Itchy Eyes, Loss of Peripheral Vision, Pain, Photophobia, Requires Corrective Lenses, Sees Flashes, Spots in Vision, Tunnel Vision, Other Visual Disturbances, Loss of Vision, Other Ears: absent: As Per HPI, Decreased Hearing, Ear Discharge, Ear Pain, Tinnitus, Abnormal Hearing, Disequilibrium, Dizziness, Other Nose/Mouth/Throat: absent: As Per HPI, Epistaxis, Nasal Congestion, Nasal Discharge, Nasal Obstruction, Nasal Trauma, Nose Pain, Post Nasal Drip, Sinus Pain, Sinus Pressure, Bleeding Gums, Change in Voice, Dental Pain, Dry Mouth, Dysphagia, Halitosis, Hoarsness, Lip Swelling, Mouth Lesions, Mouth Pain, Odynophagia, Sore Throat, Throat Swelling, Tongue Swelling, Facial Pain, Neck Pain, Neck Mass, Other - Cardiovascular Cardiovascular: Chest Pain, Dyspnea, Pain Radiating to Arm/Neck/Jaw, Radiating Pain - Respiratory Respiratory: absent: As Per HPI, Cough, Dyspnea, Hemoptysis, Dyspnea on Exertion , Wheezing, Snoring, Stridor, Pain on Inspiration, Chest Congestion, Excessive Mucous Production, Change in Mucous Color, Pain with Coughing, Other - Gastrointestinal Gastrointestinal: absent: As Per HPI, Abdominal Pain, Belching, Bloating, Change in Bowel Habits, Change in Stool Character, Coffee Ground Emesis, Constipation, Cramping, Diarrhea, Dyspepsia, Dysphagia, Early Satiety, Excessive Flatus, Fecal Incontinence, Heartburn, Hematemesis, Hematochezia, Loose Stools, Melena, Nausea, Odynophagia, Temesmus, Vomiting, Other - Musculoskeletal Musculoskeletal: Arthralgias, Back Pain, Muscle Weakness, Myalgias - Integumentary Integumentary: absent: As Per HPI, Acne, Alopecia, Bleeding Lesions, Change in Hair, Change in Nails, Change in Pigmentation, Changing Lesions, Dry Skin, Erythema, Furuncle, Hirsutism, Lesions, New Lesions, Non-Healing Lesions, Photosensitivity, Pruritus, Rash, Skin Pain, Skin Ulcer, Sores, Striae, Swelling , Unusual Bruising, Wounds, Jaundice, Other Past Patient History - Infectious Disease Hx of Infectious Diseases: None - Past Medical History & Family History Past Medical History?: Yes - Past Social History Smoking Status: Never Smoked - CARDIAC Hx Cardia Arrhythmia: Yes Hx Congestive Heart Failure: Yes Hx Hypercholesterolemia: Yes Hx Hypertension: Yes - PULMONARY Hx Asthma: Yes - NEUROLOGICAL Hx Neurological Disorder: No - HEENT Hx HEENT Problems: No - RENAL Hx Chronic Kidney Disease: No - ENDOCRINE/METABOLIC Hx Endocrine Disorders: Yes Hx Diabetes Mellitus Type 2: Yes (??) Hx Systemic Lupus Erythematosus: Yes - HEMATOLOGICAL/ONCOLOGICAL Hx Blood Disorders: No - INTEGUMENTARY Hx Dermatological Problems: Yes Hx Eczema: Yes - MUSCULOSKELETAL/RHEUMATOLOGICAL Hx Musculoskeletal Disorders: Yes Hx Falls: No Other/Comment: HIP REPLACEMENT 2014 - GASTROINTESTINAL Hx Gastrointestinal Disorders: No - GENITOURINARY/GYNECOLOGICAL Hx Genitourinary Disorders: No - PSYCHIATRIC Hx Anxiety: Yes Hx Paranoia: Yes Hx Substance Use: No - SURGICAL HISTORY Hx Appendectomy: Yes Hx Cholecystectomy: Yes - ANESTHESIA Hx Anesthesia: Yes Hx Anesthesia Reactions: Yes (Developed rash 2and 1/2 weeks after hip surgery similair to now) Hx Malignant Hyperthermia: No Meds Allergies/Adverse Reactions: Allergies Allergy/AdvReac Type Severity Reaction Status Date / Time propofol Allergy Intermediate RASH Verified 01/27/17 12:38 hydroxychloroquine sulfate Allergy RASH Verified 01/25/17 13:17 [From Plaquenil] FRUITS Allergy Mild SHORTNESS Uncoded 01/25/17 13:17 OF BREATH "anastesia" Allergy RASH Uncoded 01/25/17 13:17 Physical Exam - Constitutional Appears: No Acute Distress - Head Exam Head Exam: ATRAUMATIC, NORMAL INSPECTION, NORMOCEPHALIC - Eye Exam Eye Exam: EOMI, Normal appearance, PERRL Pupil Exam: NORMAL ACCOMODATION, PERRL - Respiratory Exam Respiratory Exam: Clear to Auscultation Bilateral - Cardiovascular Exam Cardiovascular Exam: +S1, +S2 Additional comments: s3 positive Results - Vital Signs Recent Vital Signs: Last Vital Signs Temp 97.8 F 03/04/17 18:10 Pulse 82 03/04/17 20:37 Resp 20 03/04/17 18:10 BP 132/74 03/04/17 22:29 Pulse Ox 95 03/04/17 18:10 - Labs Result Diagrams: 03/04/17 12:56 03/04/17 12:56 Assessment & Plan (1) Fibromyalgia Status: Acute (2) Bronchial asthma Status: Acute (3) Chest pain Assessment and Plan: R/O GA pt had atypical chest pain Status: Acute (4) H/O CHF Status: Acute
[2017-03-05 09:45] VITALS: PULSE 86; RESP 18; TEMP 97.8; O2SAT 97
[2017-03-05] MEDS ORDERED: Home Med 1 UNIT (Zolpidem [Ambien] 10 MG) PO SCH (10:00)
[2017-03-05] MEDS ORDERED: Pantoprazole 40 mg EC Tab PO SCH (10:00)
[2017-03-05] MEDS ORDERED: Venlafaxine 150 mg ER Cap PO SCH ×2 (10:00)
[2017-03-05] MEDS ORDERED: Enoxaparin 40 mg Syringe SC SCH (10:00)
[2017-03-05 10:01] VITALS: BP 110/67
--- NOTE | 2017-03-05 11:54 | CP.PCM.PN ---
Subjective - Date & Time of Evaluation Date of Evaluation: 03/05/17 Time of Evaluation: 10:25 - Subjective Subjective: Pt seen an dexamined today , states feels better today, symptoms resolved , denies any chest pain , sob Objective - Vital Signs/Intake and Output Vital Signs (last 24 hours): Temp Pulse Resp BP Pulse Ox 97.8 F 86 18 110/67 97 03/05/17 09:42 03/05/17 09:42 03/05/17 09:42 03/05/17 10:00 03/05/17 09:42 - Medications Medications: Current Medications Albuterol (Ventolin Hfa 90 Mcg/Actuation (8 G)) 1 puff IH RQ4 PRN PRN Reason: Wheezing Albuterol Sulfate (Albuterol 0.083% Inhal Soha (2.5 Mg/3 Ml) Ud) 2.5 mg IH RQ6 PRN PRN Reason: Wheezing Alprazolam (Xanax) 2 mg PO BID [facility] Last Admin: 03/05/17 10:00 Dose: 2 mg Aspirin (Aspirin Chewable) 81 mg PO DAILY [facility] Last Admin: 03/05/17 10:00 Dose: 81 mg Azathioprine (Imuran) 50 mg PO DAILY [facility] Last Admin: 03/05/17 10:00 Dose: 50 mg Carvedilol (Coreg) 6.25 mg PO Q12H [facility] Last Admin: 03/05/17 05:53 Dose: Not Given Enoxaparin Sodium (Lovenox) 40 mg SC DAILY [facility] Last Admin: 03/05/17 10:00 Dose: 40 mg Folic Acid (Folic Acid) 1 mg PO DAILY [facility] Last Admin: 03/05/17 10:00 Dose: 1 mg Furosemide (Lasix) 40 mg IVP DAILY [facility] Last Admin: 03/05/17 10:00 Dose: 40 mg Hydroxyzine HCl (Atarax) 25 mg PO Q6H PRN PRN Reason: .itchine Sodium Chloride (Sodium Chloride 0.9%) 1,000 mls @ 100 mls/hr IV .Q10H [facility] Last Admin: 03/05/17 10:13 Dose: Not Given Oxycodone/Acetaminophen (Percocet 5/325 Mg Tab) 1 tab PO Q8H PRN PRN Reason: Pain, severe (8-10) Stop: 03/07/17 17:35 Last Admin: 03/04/17 20:23 Dose: 1 tab Pantoprazole Sodium (Protonix Ec Tab) 40 mg PO DAILY [facility] Last Admin: 03/05/17 10:00 Dose: 40 mg Rosuvastatin Calcium (Crestor) 10 mg PO HS [facility] Last Admin: 03/04/17 21:14 Dose: 10 mg Spironolactone (Aldactone) 25 mg PO DAILY [facility] Last Admin: 03/05/17 10:02 Dose: 25 mg Thiamine HCl (Vitamin B1 Tab) 100 mg PO DAILY [facility] Last Admin: 03/05/17 10:00 Dose: 100 mg Trazodone HCl (Desyrel) 50 mg PO BID PRN PRN Reason: depression Venlafaxine HCl (Effexor Xr) 150 mg PO DAILY [facility] Last Admin: 03/05/17 10:00 Dose: 150 mg Zolpidem Tartrate (Ambien) 5 mg PO HS PRN PRN Reason: Insomnia Last Admin: 03/04/17 21:40 Dose: 5 mg - Labs Labs: PT 12.0 SECONDS (9.7-12.2) 03/04/17 12:56 INR 1.1 03/04/17 12:56 APTT 41 SECONDS (21-34) H 03/04/17 12:56 Assessment and Plan - Assessment and Plan (Free Text) Assessment: A/P 41 yr old female admitted for chest pain and left arm pain troponin x 3 - negative Dr. Foss seen patient and cleared for discharge home today and f/u with Dr. Montenegro office in 1 week D/W Dr. Vidal, stable for discharge home today and f/u with PMD in 3-5 DAYS Discharge plan discussed with patient who understands and agrees with plan Rena instructed to returns to ED if symptoms returns or any other concerning symptoms
--- NOTE | 2017-03-05 11:58 | PCM.HF ---
Heart Failure Core Measure - Heart Failure Ejection Fraction: Less Than 40 % MELINDA Inhibitor Prescribed: No Contraindication/Reason for not providing: bp low Beta-Piotr Prescribed: Carvedilol Angiotensin II Receptor Piotr Prescribed: No Contraindication/Reason for not providing: bp low AnticoagulationTherapy for Atrial Fibrillation/Atrialflutter: No Contraindication/Reason for not providing: no hx of a fib Aldosterone Antagonist Prescribed: Yes Hydralazine Nitrate Prescribed: No Contraindication/Reason for not providing: bp low Implantable Cardioverter Defibrillator Therapy: Yes Contraindication/Reason for not providing: on vest / out patient follow up Cardiac Resynchronization Therapy Prescribed: No Contraindication/Reason for not providinn vest / - Follow up Will be discharged to: Home Follow Up Date (must be within 7 days from discharge): 03/08/17 Follow Up Time: 09:00
--- NOTE | 2017-03-06 15:23 | CP.PCM.DIS ---
Provider - Provider Date of Admission: 03/04/17 14:15 Attending physician: Dontae Vidal MD Time Spent in preparation of Discharge (in minutes): 30 Diagnosis - Discharge Diagnosis (1) Fibromyalgia Status: Acute (2) Bronchial asthma Status: Acute (3) Chest pain Status: Acute (4) H/O CHF Status: Acute Hospital Course - Lab Results Lab Results: Most Recent Lab Values WBC 11.1 K/uL (4.8-10.8) H 03/04/17 12:56 RBC 5.34 Mil/uL (3.80-5.20) H 03/04/17 12:56 Hgb 13.4 g/dL (11.0-16.0) D 03/04/17 12:56 Hct 41.3 % (34.0-47.0) 03/04/17 12:56 MCV 77.4 fL (81.0-99.0) L 03/04/17 12:56 MCH 25.1 pg (27.0-31.0) L 03/04/17 12:56 MCHC 32.4 g/dL (33.0-37.0) L 03/04/17 12:56 RDW 15.7 % (11.5-14.5) H 03/04/17 12:56 Plt Count 433 K/uL (130-400) H 03/04/17 12:56 MPV 9.0 fL (7.2-11.7) 03/04/17 12:56 Neut % (Auto) 73.3 % (50.0-75.0) 03/04/17 12:56 Lymph % (Auto) 14.9 % (20.0-40.0) L 03/04/17 12:56 [place] % (Auto) 8.3 % (0.0-10.0) 03/04/17 12:56 Eos % (Auto) 2.9 % (0.0-4.0) 03/04/17 12:56 Baso % (Auto) 0.6 % (0.0-2.0) 03/04/17 12:56 Neut # 8.1 K/uL (1.8-7.0) H 03/04/17 12:56 Lymph # 1.7 K/uL (1.0-4.3) 03/04/17 12:56 [place] # 0.9 K/uL (0.0-0.8) H 03/04/17 12:56 Eos # 0.3 K/uL (0.0-0.7) 03/04/17 12:56 Baso # 0.1 K/uL (0.0-0.2) 03/04/17 12:56 PT 12.0 SECONDS (9.7-12.2) 03/04/17 12:56 INR 1.1 03/04/17 12:56 APTT 41 SECONDS (21-34) H 03/04/17 12:56 Sodium 136 mmol/L (132-148) 03/04/17 12:56 Potassium 3.7 mmol/L (3.6-5.2) 03/04/17 12:56 Chloride 98 mmol/L (98-107) 03/04/17 12:56 Carbon Dioxide 26 mmol/L (22-30) 03/04/17 12:56 Anion Gap 16 (10-20) 03/04/17 12:56 BUN 9 mg/dL (7-17) 03/04/17 12:56 Creatinine 0.6 MG/DL (0.7-1.2) L 03/04/17 12:56 Est GFR ( Amer) > 60 03/04/17 12:56 Est GFR (Non-Af Amer) > 60 03/04/17 12:56 Random Glucose 100 mg/dL (65-105) 03/04/17 12:56 Calcium 8.9 mg/dl (8.6-10.4) 03/04/17 12:56 Total Bilirubin 1.4 mg/dL (0.2-1.3) H 03/04/17 12:56 AST 26 U/L (14-36) 03/04/17 12:56 ALT 28 U/L (9-52) 03/04/17 12:56 Alkaline Phosphatase 76 U/L (38-126) 03/04/17 12:56 Troponin I < 0.0120 ng/mL (0.00-0.120) 03/04/17 12:56 NT-Pro-B Natriuret Pep 2730 pg/mL (0-450) H 03/04/17 12:56 Total Protein 7.9 g/dL (6.3-8.3) 03/04/17 12:56 Albumin 4.2 g/dL (3.5-5.0) 03/04/17 12:56 Globulin 3.7 gm/dL (2.2-3.9) 03/04/17 12:56 Albumin/Globulin Ratio 1.1 (1.0-2.1) 03/04/17 12:56 Urine Color Yellow (YELLOW) 03/04/17 12:56 Urine Clarity Hazy (Clear) 03/04/17 12:56 Urine pH 6.0 (5.0-8.0) 03/04/17 12:56 Ur Specific [place] 1.016 (1.003-1.030) 03/04/17 12:56 Urine Protein 1+ mg/dL (NEGATIVE) H 03/04/17 12:56 Urine Glucose (UA) Normal mg/dL (Normal) 03/04/17 12:56 Urine Ketones Negative mg/dL (NEGATIVE) 03/04/17 12:56 Urine Blood Negative (NEGATIVE) 03/04/17 12:56 Urine Nitrate Negative (NEGATIVE) 03/04/17 12:56 Urine Bilirubin Negative (NEGATIVE) 03/04/17 12:56 Urine Urobilinogen Normal mg/dL (0.2-1.0) 03/04/17 12:56 Ur Leukocyte Esterase Neg Jewel/uL (Negative) 03/04/17 12:56 Urine WBC (Auto) 6 /hpf (0-5) H 03/04/17 12:56 Urine RBC (Auto) 5 /hpf (0-3) H 03/04/17 12:56 Ur Squamous Epith Cells 33 /hpf (0-5) H 03/04/17 12:56 Urine Bacteria Rare (<OCC) 03/04/17 12:56 - Hospital Course Hospital Course: Pt seen an dexamined today , states feels better today, symptoms resolved , denies any chest pain , sob pt is for discharge, cardiac times 2 negative, non coronary chest pain Discharge Exam - Head Exam Head Exam: ATRAUMATIC, NORMAL INSPECTION, NORMOCEPHALIC - Eye Exam Eye Exam: EOMI, Normal appearance, PERRL Pupil Exam: NORMAL ACCOMODATION, PERRL - ENT Exam ENT Exam: Mucous Membranes Moist - Respiratory Exam Respiratory Exam: Clear to PA & Lateral, NORMAL BREATHING PATTERN - Cardiovascular Exam Cardiovascular Exam: REGULAR RHYTHM, +S1, +S2 - GI/Abdominal Exam GI & Abdominal Exam: Normal Bowel Sounds Discharge Plan - Follow Up Plan Condition: STABLE Disposition: HOME/ ROUTINE Instructions: Heart Failure (GEN), Chest Pain (GEN) Additional Instructions: Please f/u with PMD in 1 week f/u with Dr. Taylor office in 1 week Resume all home medications
--- NOTE | 2017-03-08 11:41 | CARD ---
APPROVED REPORT EKG Measurement Heart [id number] <Conclusion> Sinus tachycardia Possible Left atrial enlargement Left bundle branch block Abnormal ECG
== END 2017-03-05 12:27 | disposition home or self-care (01) ==
LOC: C.ER 11:43 → C.9E 14:15 → C.5T 17:28
PROVIDERS: ADMIT Internal Medicine; ATTEND Internal Medicine
DX: R07.9 Chest pain, unspecified (principal); J45.998 Other asthma; M79.7 Fibromyalgia; E78.00 Pure hypercholesterolemia, unspecified
CPT/HCPCS: 70450; 71020; 80053; 81001; 83880; 84484; 85025; 85610; 85730; 93005; 94640; 94760; 99285; G0378; J1650; J1940; J7040; J7500

== ENCOUNTER 2017-04-19 12:36 | Emergency (ER) | payer MEDICARE, OTHER ==
[2017-04-19 12:36] VITALS: PULSE 79; BMI 41.3
[2017-04-19 13:07] VITALS: RESP 18; TEMP 98.5
[2017-04-19] MEDS ORDERED: Oxycodone/Acetaminophen 5/325 mg Tab PO STA (13:35)
[2017-04-19] MEDS ORDERED: Oxycodone/Acetaminophen 5/325 mg Tab ONE (13:39)
--- NOTE | 2017-04-19 14:03 | CT ---
PROCEDURE: CT HEAD WITHOUT CONTRAST. HISTORY: HEADACHE S/P HEAD INJURY COMPARISON: 03/04/2017. TECHNIQUE: Axial computed tomography images were obtained through the head/brain without intravenous contrast. Radiation dose: Total exam DLP = 981.84 mGy-cm. This CT exam was performed using one or more of the following dose reduction techniques: Automated exposure control, adjustment of the mA and/or kV according to patient size, and/or use of iterative reconstruction technique. FINDINGS: HEMORRHAGE: No intracranial hemorrhage. BRAIN: Boggs-white matter differentiation is preserved. There is no mass, mass effect or abnormal extra-axial fluid collection. There is no territorial infarction. VENTRICLES: There is mild global parenchymal volume loss and proportionate enlargement of the ventricles and cortical sulci. CALVARIUM: There is no calvarial fracture or extracranial soft tissue swelling. PARANASAL SINUSES: Predominantly clear. MASTOID AIR CELLS: Predominantly clear. OTHER FINDINGS: None. IMPRESSION: No acute intracranial abnormality. Mild global parenchymal volume loss, advanced for the patient's age.
--- NOTE | 2017-04-19 14:16 | C.PDOC ---
History Of Present Illness 41 y/o female presents to ED with complaints of headache that radiates to neck. Patient states on Wednesday she hit her head on the corner of a cabinet and developed the pain since the. Patient reports taking ibuprofen and Naproxen with no relief. Patient denies loc, bump to head, dizziness, visual changes, slurred speech or any other complaints at this time. Time Seen by Provider: 04/19/17 13:19 Chief Complaint (Nursing): Headache History Per: Patient History/Exam Limitations: no limitations Onset/Duration Of Symptoms: Days Current Symptoms Are (Timing): Still Present Past Medical History Reviewed: Historical Data, Nursing Documentation, Vital Signs Vital Signs: Last Vital Signs Temp 98.5 F 04/19/17 13:02 Pulse 98 H 04/19/17 13:02 Resp 18 04/19/17 13:02 BP 125/87 04/19/17 13:02 Pulse Ox 97 04/19/17 14:48 - Medical History PMH: Anxiety, Asthma, Cardia Arrhythmia, CHF, Fibromyalgia, HTN, Hypercholesterolemia, Paranoia Surgical History: Appendectomy, Cholecystectomy - [facility] Procedures OCCUPATIONAL THERAPY (02/09/14) PHYSICAL THERAPY NEC (02/03/14) Family History: States: Unknown Family Hx, Diabetes, Hypertension - Social History Hx Tobacco Use: No Hx Alcohol Use: No Hx Substance Use: No - Immunization History Hx Tetanus Toxoid Vaccination: No Hx Influenza Vaccination: No Hx Pneumococcal Vaccination: No Review Of Systems Except As Marked, All Systems Reviewed And Found Negative. Eyes: Negative for: Vision Change Musculoskeletal: Positive for: Neck Pain Skin: Negative for: Rash Neurological: Positive for: Headache. Negative for: Dizziness Physical Exam - Physical Exam Appears: Other (In mild pain) Skin: Normal Color, Warm, No Dry Head: Atraumatic, Normacephalic, No Abrasion, No Laceration Eye(s): bilateral: Normal Inspection, PERRL, EOMI Neck: Normal ROM, No Midline Cervical Tenderness, Supple Cardiovascular: Rhythm Regular, No Murmur Respiratory: Normal Breath Sounds, No Rales, No Rhonchi, No Wheezing Neurological/Psych: Oriented x3, Normal Speech, Normal Cognition, Normal Sensation Gait: Steady ED Course And Treatment O2 Sat by Pulse Oximetry: 97 (RA) Pulse Ox Interpretation: Normal - CT Scan/US CT HEAD Other Rad Studies (CT/US): Read By Radiologist, Radiology Report Reviewed CT/US Interpretation: Accession No. : [id number]. Patient Name / ID : BELTRAN VICTORIA / [id number]. Exam Date : 04/19/2017 13:51:32 ( Approved ). Study Comment : Sex / Age : F / 41Y. Creator : Barbara Macias MD. Dictator : Barbara Macias MD. Claims Associate : Forest Engineer : Barbara Macias MD. Approver2 : Report Date : 04/19/2017 14:01:52. My Comment : . PROCEDURE: CT HEAD WITHOUT CONTRAST. HISTORY: HEADACHE S/P HEAD INJURY. COMPARISON: 2016. TECHNIQUE: Axial computed tomography images were obtained through the head/brain without intravenous contrast. Radiation dose: Total exam DLP = 981.84 mGy-cm. This CT exam was performed using one or more of the following dose reduction techniques: Automated exposure control, adjustment of the mA and/ or kV according to patient size, and/or use of iterative reconstruction technique. FINDINGS: HEMORRHAGE: No intracranial hemorrhage. BRAIN: Boggs- white matter differentiation is preserved. There is no mass, mass effect or abnormal extra-axial fluid collection. There is no territorial infarction. VENTRICLES: There is mild global parenchymal volume loss and proportionate enlargement of the ventricles and cortical sulci. CALVARIUM: There is no calvarial fracture or extracranial soft tissue swelling. PARANASAL SINUSES: Predominantly clear. MASTOID AIR CELLS: Predominantly clear. OTHER FINDINGS: None. IMPRESSION: No acute intracranial abnormality. Mild global parenchymal volume loss, advanced for the patient's age. Medical Decision Making Medical Decision Making: CT Head scan ordered Patient was given Percocet for pain Disposition Counseled Patient/Family Regarding: Studies Performed, Diagnosis, Need For Followup, Rx Given - Disposition Referrals: Dontae Vidal MD [Staff Provider] - Disposition: HOME/ ROUTINE Disposition Time: 14:55 Condition: STABLE Additional Instructions: FOLLOW UP WITH YOUR DOCTOR IN 1-2 DAYS USE PAIN MEDICATION NEEDED RETURN TO ER IF SYMPTOMS WORSEN Prescriptions: Acetaminophen with Codeine [Tylenol with Codeine #3 Tablet] 1 each PO Q6 PRN # 12 tablet PRN Reason: pain Instructions: Head Injury (ED) Print Language: MAORI - POA Present On Arrival: None - Clinical Impression Clinical Impression: Headache, Closed head injury - Scribe Statement The provider has reviewed the documentation as recorded by the Eladiaibsvitlana Perez All medical record entries made by the Farida were at my direction and personally dictated by me. I have reviewed the chart and agree that the record accurately reflects my personal performance of the history, physical exam, medical decision making, and the department course for this patient. I have also personally directed, reviewed, and agree with the discharge instructions and disposition.
[2017-04-19 15:48] VITALS: BP 127/65; PULSE 72; O2SAT 98
== END 2017-04-19 15:48 | disposition home or self-care (01) ==
LOC: C.ER 12:36
DX: S09.90XA Unspecified injury of head, initial encounter (principal); W22.03XA Walked into furniture, initial encounter; Y93.9 Activity, unspecified; Y92.009 Unspecified place in unspecified non-institutional (private) residence as the place of occurrence of the external cause

== ENCOUNTER 2017-05-09 01:00 | Emergency (ER) | payer MEDICARE, OTHER ==
[2017-05-09 01:01] VITALS: PULSE 79; BMI 41.3
[2017-05-09 01:51] VITALS: RESP 16; O2SAT 95
[2017-05-09 02:27] LABS: SQUAMOUS EPITHIAL 6 /hpf (0-5); URINE BACTERIA RARE (<OCC); URINE BILIRUBIN NEGATIVE (NEGATIVE); URINE BLOOD 1+ (NEGATIVE); URINE CLARITY Hazy (Clear); URINE COLOR Straw (YELLOW); URINE GLUCOSE (UA) NORMAL (Normal); URINE LEUKOCYTE ESTERASE TRACE Leu/uL (Negative); URINE NITRATE NEGATIVE (NEGATIVE); URINE PROTEIN NEGATIVE (NEGATIVE); URINE UROBILINOGEN NORMAL mg/dL (0.2-1.0)
[2017-05-09 02:28] LABS: HCG,QUALITATIVE URINE NEGATIVE (NEGATIVE)
[2017-05-09] MEDS ORDERED: Morphine 4 MG/ML VIAL ONE (02:37)
--- NOTE | 2017-05-09 03:28 | CT ---
EXAM: CT Abdomen and Pelvis Without Intravenous Contrast CLINICAL HISTORY: 41 years old, female; Pain; Abdominal pain; Flank; Right; Prior surgery; Surgery date: 6+ months; Additional info: Right flank/hip pain TECHNIQUE: Axial computed tomography images of the abdomen and pelvis without intravenous contrast. This CT exam was performed using one or more of the following dose reduction techniques: automated exposure control, adjustment of the mA and/or kV according to patient size, and/or use of iterative reconstruction technique. Coronal and sagittal reformatted images were created and reviewed. EXAM DATE/TIME: 05/09/2017 2:11 AM COMPARISON: No relevant prior studies available. FINDINGS: Cholecystectomy clips are present. Clips left upper quadrant. IVC filter. The liver, spleen, and pancreas appear grossly normal on this non-contrast study. There is right hydronephrosis.There is a 3 mm calculi in the proximal right ureter.There is mild right perinephric stranding.There are tiny faint non obstructing renal calculi. The bowel appears grossly normal. Patient is status post appendectomy. Pelvic calcifications. Right hip prosthesis producing a large artifact essentially obscuring the deep pelvis. IMPRESSION: Obstructing calculi proximal right ureter. Evaluation of the pelvis significantly limited by artifact from right hip prosthesis.
[2017-05-09] MEDS ORDERED: Sodium Chloride 0.9% 1,000 ML IV STA (03:31)
--- NOTE | 2017-05-09 03:46 | C.PDOC ---
History Of Present Illness 41 year old female who presents to the ER with a complaint of right hip pain and right flank pain. Patient had a hip replacement done several years ago; she states a few days ago she felt a crack and began progressively having pain. Patient also reports developing right flank pain yesterday. Patient has a Hx of kidney stones and is worried this might be kidney stones as well. Denies fever, chills, dysuria, or hematuria. Time Seen by Provider: 05/09/17 01:59 Chief Complaint (Nursing): Back Pain History Per: Patient History/Exam Limitations: no limitations Onset/Duration Of Symptoms: Days Current Symptoms Are (Timing): Still Present Quality Of Discomfort: Unable To Describe Previous Symptoms: None Associated Symptoms: None Exacerbating Factor(s): Nothing Recent travel outside of the [place]: No Past Medical History Reviewed: Historical Data, Nursing Documentation, Vital Signs Vital Signs: Last Vital Signs Temp 97.8 F 05/09/17 06:06 Pulse 80 05/09/17 06:06 Resp 16 05/09/17 06:06 BP 103/75 05/09/17 06:06 Pulse Ox 95 05/09/17 06:06 - Medical History PMH: Anxiety, Asthma, Cardia Arrhythmia, CHF, Fibromyalgia, HTN, Hypercholesterolemia, Paranoia, Chronic Kidney Disease Surgical History: Appendectomy, Cholecystectomy - [facility] Procedures OCCUPATIONAL THERAPY (02/09/14) PHYSICAL THERAPY NEC (02/03/14) Family History: States: Unknown Family Hx, Diabetes, Hypertension - Social History Hx Tobacco Use: No Hx Alcohol Use: No Hx Substance Use: No - Immunization History Hx Tetanus Toxoid Vaccination: No Hx Influenza Vaccination: No Hx Pneumococcal Vaccination: No Review Of Systems Constitutional: Negative for: Fever, Chills Gastrointestinal: Positive for: Abdominal Pain (Right Flank) Genitourinary: Negative for: Dysuria, Hematuria Musculoskeletal: Positive for: Other (Right Hip) Physical Exam - Physical Exam Appears: Non-toxic Skin: Normal Color, Warm, Dry Head: Atraumatic, Normacephalic Oral Mucosa: Moist Chest: Symmetrical, No Tenderness Cardiovascular: Rhythm Regular, No Murmur Respiratory: Normal Breath Sounds, No Rales, No Rhonchi, No Wheezing Gastrointestinal/Abdominal: Soft, Tenderness (Right sided) Neurological/Psych: Oriented x3, Normal Speech, Normal Cognition ED Course And Treatment - Laboratory Results Result Diagrams: 05/09/17 04:26 05/09/17 04:26 O2 Sat by Pulse Oximetry: 95 (Room air) Pulse Ox Interpretation: Normal - CT Scan/US CT abd/pel Other Rad Studies (CT/US): Read By Radiologist, Radiology Report Reviewed CT/US Interpretation: EXAM: CT Abdomen and Pelvis Without Intravenous Contrast. CLINICAL HISTORY: 41 years old, female; Pain; Abdominal pain; Flank ; Right; Prior surgery; Surgery date: 6+ months;. Additional info: Right flank/ hip pain. TECHNIQUE: Axial computed tomography images of the abdomen and pelvis without intravenous contrast. This. CT exam was performed using one or more of the following dose reduction techniques: automated. exposure control, adjustment of the mA and/or kV according to patient size, and/or use of iterative. reconstruction technique. Coronal and sagittal reformatted images were created and reviewed. EXAM DATE/TIME: 05/09/2017 2:11 AM. COMPARISON: No relevant prior studies available. FINDINGS: Cholecystectomy clips are present. Clips left upper quadrant. IVC filter. The liver, spleen, and pancreas appear grossly normal on this non-contrast study. There is right hydronephrosis.There is a 3 mm calculi in the proximal right ureter.There is mild right. perinephric stranding.There are tiny faint non obstructing renal calculi. The bowel appears grossly normal. Patient is status post appendectomy. Pelvic calcifications. Right hip prosthesis producing a large artifact essentially obscuring the deep pelvis. IMPRESSION: Obstructing calculi proximal right ureter. Evaluation of the pelvis significantly limited by artifact from right hip prosthesis. Progress Note: Blood work and urinalysis ordered. Flomax, morphine, toradol, and IV fluids administered. On reevaluation, patient's pain has much improved, will discharge home with instruction to follow up with urologist or PMD. Disposition - Disposition Referrals: Dontae Vidal MD [Staff Provider] - Noah Liao MD [Staff Provider] - Disposition: HOME/ ROUTINE Disposition Time: 05:31 Condition: STABLE Additional Instructions: Follow up with PMD and Urologist. Return to ED if feel worse. Prescriptions: Ciprofloxacin [Cipro] 1 tab PO BID #10 tab Tamsulosin [Flomax] 0.4 mg PO DAILY #10 cap oxyCODONE/Acetaminophen [Percocet 5/325 mg Tab] 1 tab PO QID PRN #20 tab PRN Reason: Pain Instructions: Renal Colic (ED) - Clinical Impression Clinical Impression: Renal colic on right side - Scribe Statement The provider has reviewed the documentation as recorded by the Scribsvitlana Tang All medical record entries made by the Scribe were at my direction and personally dictated by me. I have reviewed the chart and agree that the record accurately reflects my personal performance of the history, physical exam, medical decision making, and the department course for this patient. I have also personally directed, reviewed, and agree with the discharge instructions and disposition.
[2017-05-09] MEDS ORDERED: Sodium Chloride 0.9% 1,000 ML ONE (04:15)
[2017-05-09 04:30] LABS: BASO # 0.1 K/uL (0.0-0.2); BASO % 0.9 % (0.0-2.0); EOS # 0.4 K/uL (0.0-0.7); EOS % 3.7 % (0.0-4.0); HEMOGLOBIN 12.5 g/dL (11.0-16.0); LYMPH # 2.4 K/uL (1.0-4.3); LYMPH % 20.9 % (20.0-40.0); MEAN CELL VOLUME 78.6 fL (81.0-99.0); MEAN CORPUSCULAR HEMOGLOBIN 25.4 pg (27.0-31.0); MEAN CORPUSCULAR HGB CONC 32.4 g/dL (33.0-37.0); MEAN PLATELET VOLUME 9.3 fL (7.2-11.7); MONO # 1.1 K/uL (0.0-0.8); MONO % 9.9 % (0.0-10.0); NEUT # 7.4 K/uL (1.8-7.0); NEUT % 64.6 % (50.0-75.0); RBC 4.93 Mil/uL (3.80-5.20); WHITE BLOOD COUNT 11.5 K/uL (4.8-10.8)
[2017-05-09 04:38] LABS: ALBUMIN 3.9 g/dL (3.5-5.0)
[2017-05-09 04:40] LABS: GFR AFRICAN-AMERICAN > 60; GFR NON-AFRICAN AMERICAN 55
[2017-05-09 04:41] LABS: ALB/GLOB RATIO 1.2 (1.0-2.1); ALT/SGPT 26 U/L (9-52); AST/SGOT 15 U/L (14-36); BLOOD UREA NITROGEN 15 mg/dL (7-17)
[2017-05-09 06:08] VITALS: BP 103/75; PULSE 80; TEMP 97.8
== END 2017-05-09 06:09 | disposition home or self-care (01) ==
LOC: C.ER 01:00
DX: N13.2 Hydronephrosis with renal and ureteral calculous obstruction (principal); Z87.442 Personal history of urinary calculi
CPT/HCPCS: 74176; 80053; 81001; 84703; 85025; 96361; 96372; 96374; 99284; J1885; J2270; J7040

== ENCOUNTER 2018-02-25 05:42 | Observation (INO) | payer MEDICARE ==
[2018-02-25 05:43] VITALS: PULSE 79; BMI 41.3
--- NOTE | 2018-02-25 05:56 | C.PDOC ---
History Of Present Illness Patient presents to the ER with a complaint of chest pressure pain and throat pain for the past 3 weeks, associated with SOB. Patient states she saw her PMD who advised her to come in for evaluation. Patient is currently speaking in complete sentences. Denies fever or chills. Time Seen by Provider: 02/25/18 05:55 Chief Complaint (Nursing): Chest Pain History Per: Patient History/Exam Limitations: no limitations Onset/Duration Of Symptoms: Days Current Symptoms Are (Timing): Still Present Severity: Moderate Pain Scale Rating Of: 4 Quality: Pressure Associated Symptoms: Dyspnea. denies: Nausea, Diaphoresis, Syncope Modifying Factors: None Exacerbating Factors: None Alleviating Factors: None Recent travel outside of the [place]: No Past Medical History Reviewed: Historical Data, Nursing Documentation, Vital Signs Vital Signs: Last Vital Signs Temp 98 F 02/25/18 05:57 Pulse 102 H 02/25/18 05:57 Resp 20 02/25/18 05:57 BP 130/93 H 02/25/18 05:57 Pulse Ox 96 02/25/18 05:57 - Medical History PMH: Anxiety, Asthma, Cardia Arrhythmia, CHF, Fibromyalgia, HTN, Hypercholesterolemia, Paranoia, Chronic Kidney Disease Surgical History: Appendectomy, Cholecystectomy - [facility] Procedures OCCUPATIONAL THERAPY (02/09/14) PHYSICAL THERAPY NEC (02/03/14) Family History: States: Diabetes, Hypertension - Social History Hx Tobacco Use: No Hx Alcohol Use: No Hx Substance Use: No - Immunization History Hx Tetanus Toxoid Vaccination: No Hx Influenza Vaccination: No Hx Pneumococcal Vaccination: No Review Of Systems Constitutional: Negative for: Fever, Chills ENT: Positive for: Throat Pain Cardiovascular: Positive for: Chest Pain Respiratory: Positive for: Shortness of Breath Gastrointestinal: Negative for: Nausea, Vomiting Physical Exam - Physical Exam Appears: Non-toxic Skin: Warm, Dry Head: Normacephalic Oral Mucosa: Moist Lips: No Swelling Throat: No Erythema, No Exudate, No Other (Swelling) Chest: Other (Pacemaker to left side) Cardiovascular: Rhythm Regular Respiratory: No Rales, No Rhonchi, No Wheezing Gastrointestinal/Abdominal: Soft, No Tenderness Neurological/Psych: Oriented x3 ED Course And Treatment ECG: Interpreted By Me, Viewed By Me ECG Rhythm: Sinus Rhythm (85), Nonspecific Changes (paced) Pulse Ox Interpretation: Normal - Radiology CXR: Interpreted by Me, Viewed By Me CXR Interpretation: Yes: Other (pacer defib left cw). No: Infiltrates, Fracture , Pnemothorax Progress Note: EKG, blood work, CXR, and urinalysis ordered. Aspirin administered. Disposition Counseled Patient/Family Regarding: Studies Performed, Diagnosis - Disposition Disposition Time: 05:55 Condition: FAIR Forms: [facility] (Italian) - Clinical Impression Clinical Impression: Chest discomfort, Headache, Dyspnea - Scribe Statement The provider has reviewed the documentation as recorded by the Scribsvitlana Tang All medical record entries made by the Eladiaibe were at my direction and personally dictated by me. I have reviewed the chart and agree that the record accurately reflects my personal performance of the history, physical exam, medical decision making, and the department course for this patient. I have also personally directed, reviewed, and agree with the discharge instructions and disposition. Physician Patient Turnover Patient Signed Over To: Spencer Valle Handoff Comments: pending labs, and disposition
[2018-02-25] MEDS ORDERED: Aspirin 325 mg EC Tablets PO STA (06:08)
[2018-02-25 06:22] LABS: BASO # 0.1 K/uL (0.0-0.2); BASO % 0.4 % (0.0-2.0); HEMOGLOBIN 12.1 g/dL (11.0-16.0); LYMPH # 1.1 K/uL (1.0-4.3); MEAN CELL VOLUME 77.7 fL (81.0-99.0); MEAN CORPUSCULAR HEMOGLOBIN 25.7 pg (27.0-31.0); MEAN CORPUSCULAR HGB CONC 33.1 g/dL (33.0-37.0); MEAN PLATELET VOLUME 9.1 fL (7.2-11.7); MONO # 0.6 K/uL (0.0-0.8); MONO % 4.7 % (0.0-10.0); NEUT # 11.5 K/uL (1.8-7.0); NEUT % 86.9 % (50.0-75.0); PLATELET COUNT 429 K/uL (130-400); RBC 4.71 Mil/uL (3.80-5.20); RED CELL DISTRIBUTION WIDTH 14.4 % (11.5-14.5); WHITE BLOOD COUNT 13.3 K/uL (4.8-10.8)
[2018-02-25] MEDS ORDERED: Aspirin 325 mg EC Tablets PO ONE (06:23)
[2018-02-25 06:30] LABS: INR 1.1; PROTHROMBIN TIME 12.2 SECONDS (9.7-12.2)
[2018-02-25 06:34] LABS: ALBUMIN 4.3 g/dL (3.5-5.0); AST/SGOT 22 U/L (14-36); BLOOD UREA NITROGEN 14 mg/dL (7-17); CALCIUM 9.6 mg/dl (8.6-10.4); GFR AFRICAN-AMERICAN > 60; GFR NON-AFRICAN AMERICAN > 60
[2018-02-25 06:35] LABS: ALT/SGPT < 6 U/L (9-52)
[2018-02-25 07:17] LABS: LYMPHOCYTE 10 % (20-40); MONOCYTE 6 % (0-10); NEUTROPHIL 84 % (50-75); PLATELET ESTIMATE NORMAL (NORMAL); TOTAL CELLS COUNTED 100
[2018-02-25] MEDS ORDERED: Iodixanol 320 MG/ML 100 ML BOTTLE IV ONE (08:15)
[2018-02-25 08:18] LABS: SQUAMOUS EPITHIAL 3 /hpf (0-5); URINE BILIRUBIN NEGATIVE (NEGATIVE); URINE BLOOD NEGATIVE (NEGATIVE); URINE CLARITY Clear (Clear); URINE COLOR Yellow (YELLOW); URINE GLUCOSE (UA) NORMAL (Normal); URINE LEUKOCYTE ESTERASE NEG Leu/uL (Negative); URINE PROTEIN NEGATIVE (NEGATIVE); URINE UROBILINOGEN NORMAL mg/dL (0.2-1.0)
--- NOTE | 2018-02-25 09:35 | CT ---
PROCEDURE: CT Chest with contrast (Pulmonary Angiogram) HISTORY: chest pain and sob COMPARISON: 01/25/2017 TECHNIQUE: Axial computed tomography images were obtained of the chest in the pulmonary arterial phase of enhancement. Coronal and sagittal reformatted images were created and reviewed. Intravenous contrast dose: 100 mL Visipaque 320 Radiation dose: Total exam DLP = 499.51 mGy-cm. This CT exam was performed using one or more of the following dose reduction techniques: Automated exposure control, adjustment of the mA and/or kV according to patient size, and/or use of iterative reconstruction technique. FINDINGS: PULMONARY ARTERIES: Unremarkable. No pulmonary embolism. AORTA: No acute findings. No thoracic aortic aneurysm. LUNGS: Unremarkable. No nodule, mass or pulmonary consolidation. PLEURAL SPACES: Unremarkable. No effusion or pneuomothorax. HEART: Normal heart size. Small pericardial effusion. AICD LYMPH NODES: No lymphadenopathy. BONES, CHEST WALL: Unremarkable. No fracture or destructive lesion OTHER FINDINGS: Prior gastric surgery. Likely gastric sleeve procedure. Small hiatal hernia. Prior cholecystectomy. IMPRESSION: No evidence of pulmonary embolism. No pulmonary infiltrate/ pleural effusion. Small pericardial effusion. AICD. Evidence of prior gastric sleeve procedure and cholecystectomy. Small hiatal hernia.
--- NOTE | 2018-02-25 09:36 | RAD ---
PROCEDURE: CHEST RADIOGRAPH, 1 VIEW HISTORY: chest pain COMPARISON: Chest radiograph dated 03/04/2017. FINDINGS: LUNGS: Clear. PLEURA: No pneumothorax or pleural fluid seen. CARDIOVASCULAR: Left subclavian access AICD/ pacemaker. OSSEOUS STRUCTURES: No significant abnormalities. VISUALIZED UPPER ABDOMEN: Epigastric region surgical clips redemonstrated. OTHER FINDINGS: None. IMPRESSION: No active disease.
[2018-02-25] MEDS ORDERED: Morphine 4 MG/ML VIAL IV STA (11:17)
[2018-02-25] MEDS ORDERED: Nitroglycerin 2% Ointment Foilpak UD TOP STA (11:17)
[2018-02-25] MEDS ORDERED: Nitroglycerin 2% Ointment Foilpak UD TOP ONE (11:27)
[2018-02-25] MEDS ORDERED: Albuterol HFA 90 mcg/actuation (8 g) IH PRN (16:00)
[2018-02-25 17:38] LABS: CK-MB 0.31 ng/mL (0.0-3.38)
[2018-02-25] MEDS: Morphine 4 MG/ML VIAL IVP PRN (20:25)
[2018-02-25 23:13] LABS: CK-MB 0.24 ng/mL (0.0-3.38)
[2018-02-26] MEDS: Morphine 4 MG/ML VIAL IVP PRN ×4 (06:38→20:56)
[2018-02-26 07:15] LABS: HEMOGLOBIN 10.6 g/dL (11.0-16.0); MEAN CELL VOLUME 78.2 fL (81.0-99.0); MEAN CORPUSCULAR HEMOGLOBIN 26.4 pg (27.0-31.0); MEAN CORPUSCULAR HGB CONC 33.7 g/dL (33.0-37.0); MEAN PLATELET VOLUME 8.7 fL (7.2-11.7); RBC 4.01 Mil/uL (3.80-5.20); RED CELL DISTRIBUTION WIDTH 14.9 % (11.5-14.5); WHITE BLOOD COUNT 10.2 K/uL (4.8-10.8)
[2018-02-26 07:32] LABS: BLOOD UREA NITROGEN 17 mg/dL (7-17); CALCIUM 8.7 mg/dl (8.6-10.4); GFR AFRICAN-AMERICAN > 60; GFR NON-AFRICAN AMERICAN > 60
--- NOTE | 2018-02-26 08:01 | CP.PCM.HP ---
History of Present Illness - History of Present Illness History of Present Illness: CC: Chest Painx 3 weeks HPI: Patient is a young female with history of severe advanced cardiomysopathy,depression, anxiety, fibromyalgia, AICD placed, complaint to diet, medications, followed up by cardiology, rheamtology well gloriawn to me presents to the ER with a complaint of chest pressure pain and throat pain for the past 3 weeks, associated with SOB. Patient states she saw her PMD who advised her to come in for evaluation. Patient is currently speaking in complete sentences. Denies fever or chills., Present on Admission - Present on Admission Any Indicators Present on Admission: Yes Review of Systems - Review of Systems Systems not reviewed;Unavailable: Acuity of Condition - Constitutional Constitutional: Fever, Malaise, Weakness - EENT Eyes: absent: As Per HPI, Blind Spots, Blurred Vision, Change in Vision, Decreased Night Vision, Diplopia, Discharge, Dry Eye, Exophthalmos, Floaters, Irritation, Itchy Eyes, Loss of Peripheral Vision, Pain, Photophobia, Requires Corrective Lenses, Sees Flashes, Spots in Vision, Tunnel Vision, Other Visual Disturbances, Loss of Vision, Other Ears: absent: As Per HPI, Decreased Hearing, Ear Discharge, Ear Pain, Tinnitus, Abnormal Hearing, Disequilibrium, Dizziness, Other Nose/Mouth/Throat: absent: As Per HPI, Epistaxis, Nasal Congestion, Nasal Discharge, Nasal Obstruction, Nasal Trauma, Nose Pain, Post Nasal Drip, Sinus Pain, Sinus Pressure, Bleeding Gums, Change in Voice, Dental Pain, Dry Mouth, Dysphagia, Halitosis, Hoarsness, Lip Swelling, Mouth Lesions, Mouth Pain, Odynophagia, Sore Throat, Throat Swelling, Tongue Swelling, Facial Pain, Neck Pain, Neck Mass, Other - Cardiovascular Cardiovascular: Chest Pain - Respiratory Respiratory: absent: As Per HPI, Cough, Dyspnea, Hemoptysis, Dyspnea on Exertion , Wheezing, Snoring, Stridor, Pain on Inspiration, Chest Congestion, Excessive Mucous Production, Change in Mucous Color, Pain with Coughing, Other - Gastrointestinal Gastrointestinal: absent: As Per HPI, Abdominal Pain, Belching, Bloating, Change in Bowel Habits, Change in Stool Character, Coffee Ground Emesis, Constipation, Cramping, Diarrhea, Dyspepsia, Dysphagia, Early Satiety, Excessive Flatus, Fecal Incontinence, Heartburn, Hematemesis, Hematochezia, Loose Stools, Melena, Nausea, Odynophagia, Temesmus, Vomiting, Other - Genitourinary Genitourinary: absent: As Per HPI, Change in Urinary Stream, Difficulty Urinating, Dysuria, Flank Pain, Hematuria, Pyuria, Nocturia, Urinary Incontinence, Urinary Frequency, Urinary Hesitance, Urinary Urgency, Voiding Freq/Small Amts, Freq UTI, Hx Renal/Bladder Calculi, Hx /Renal Surgery, Bladder Distension, Other - Musculoskeletal Musculoskeletal: Back Pain, Muscle Cramps, Myalgias - Integumentary Integumentary: absent: As Per HPI, Acne, Alopecia, Bleeding Lesions, Change in Hair, Change in Nails, Change in Pigmentation, Changing Lesions, Dry Skin, Erythema, Furuncle, Hirsutism, Lesions, New Lesions, Non-Healing Lesions, Photosensitivity, Pruritus, Rash, Skin Pain, Skin Ulcer, Sores, Striae, Swelling , Unusual Bruising, Wounds, Jaundice, Other - Psychiatric Psychiatric: Abnormal Sleep Pattern, Anxiety, Depression Past Patient History - Infectious Disease Hx of Infectious Diseases: None - Past Medical History & Family History Past Medical History?: Yes - Past Social History Smoking Status: Never Smoked - CARDIAC Hx Cardia Arrhythmia: Yes Hx Congestive Heart Failure: Yes Hx Hypercholesterolemia: Yes Hx Hypertension: Yes - PULMONARY Hx Asthma: Yes - NEUROLOGICAL Hx Neurological Disorder: No - HEENT Hx HEENT Problems: No - RENAL Hx Chronic Kidney Disease: Yes - ENDOCRINE/METABOLIC Hx Endocrine Disorders: Yes Hx Systemic Lupus Erythematosus: Yes - HEMATOLOGICAL/ONCOLOGICAL Hx Blood Disorders: No - INTEGUMENTARY Hx Dermatological Problems: Yes Hx Eczema: Yes - MUSCULOSKELETAL/RHEUMATOLOGICAL Hx Musculoskeletal Disorders: Yes - GASTROINTESTINAL Hx Gastrointestinal Disorders: No - GENITOURINARY/GYNECOLOGICAL Hx Genitourinary Disorders: No - PSYCHIATRIC Hx Anxiety: Yes Hx Paranoia: Yes Hx Substance Use: No - SURGICAL HISTORY Hx Appendectomy: Yes Hx Cholecystectomy: Yes - ANESTHESIA Hx Anesthesia: Yes Hx Anesthesia Reactions: Yes (Developed rash 2and 1/2 weeks after hip surgery similair to now) Hx Malignant Hyperthermia: No Meds Allergies/Adverse Reactions: Allergies Allergy/AdvReac Type Severity Reaction Status Date / Time propofol Allergy Intermediate RASH Verified 01/27/17 12:38 enalapril Allergy Verified 05/09/17 01:52 hydroxychloroquine sulfate Allergy RASH Verified 01/25/17 13:17 [From Plaquenil] FRUITS Allergy Mild SHORTNESS Uncoded 01/25/17 13:17 OF BREATH "anastesia" Allergy RASH Uncoded 01/25/17 13:17 Physical Exam - Constitutional Appears: No Acute Distress - Head Exam Head Exam: ATRAUMATIC, NORMAL INSPECTION, NORMOCEPHALIC - Eye Exam Eye Exam: EOMI, Normal appearance, PERRL Pupil Exam: NORMAL ACCOMODATION, PERRL - ENT Exam ENT Exam: Mucous Membranes Moist, Normal Exam - Neck Exam Neck exam: Positive for: Normal Inspection - Respiratory Exam Respiratory Exam: Clear to Auscultation Bilateral, NORMAL BREATHING PATTERN - Cardiovascular Exam Cardiovascular Exam: REGULAR RHYTHM - GI/Abdominal Exam GI & Abdominal Exam: Normal Bowel Sounds, Soft. absent: Tenderness - Rectal Exam Rectal Exam: Deferred Results - Vital Signs Recent Vital Signs: Last Vital Signs Temp 98.3 F 02/26/18 06:30 Pulse 83 02/26/18 06:30 Resp 20 02/26/18 06:30 BP 115/80 02/26/18 06:30 Pulse Ox 99 02/26/18 06:30 - Labs Result Diagrams: 02/26/18 07:07 02/26/18 07:07 Labs: Laboratory Results - last 24 hr 02/25/18 02/25/18 02/25/18 07:04 17:05 22:32 WBC RBC Hgb Hct MCV MCH MCHC RDW Plt Count MPV Sodium Potassium Chloride Carbon Dioxide Anion Gap BUN Creatinine Est GFR ( Amer) Est GFR (Non-Af Amer) Random Glucose Calcium Total Creatine Kinase 136 H 119 CK-MB (Mass) 0.31 0.24 Troponin I < 0.0120 < 0.0120 Urine Color Yellow Urine Clarity Clear Urine pH 6.0 Ur Specific [place] 1.017 Urine Protein Negative Urine Glucose (UA) Normal Urine Ketones Negative Urine Blood Negative Urine Nitrate Negative Urine Bilirubin Negative Urine Urobilinogen Normal Ur Leukocyte Esterase Neg Urine WBC (Auto) 2 Urine RBC (Auto) 1 Ur Squamous Epith Cells 3 02/26/18 02/26/18 07:07 07:07 WBC 10.2 RBC 4.01 Hgb 10.6 L Hct 31.3 L MCV 78.2 L MCH 26.4 L MCHC 33.7 RDW 14.9 H Plt Count 346 MPV 8.7 Sodium 143 Potassium 3.6 Chloride 105 Carbon Dioxide 26 Anion Gap 15 BUN 17 Creatinine 0.6 L Est GFR ( Amer) > 60 Est GFR (Non-Af Amer) > 60 Random Glucose 94 Calcium 8.7 Total Creatine Kinase CK-MB (Mass) Troponin I Urine Color Urine Clarity Urine pH Ur Specific [place] Urine Protein Urine Glucose (UA) Urine Ketones Urine Blood Urine Nitrate Urine Bilirubin Urine Urobilinogen Ur Leukocyte Esterase Urine WBC (Auto) Urine RBC (Auto) Ur Squamous Epith Cells Assessment & Plan (1) Chest discomfort Status: Acute (2) Dyspnea Status: Acute (3) Anxiety Status: Acute (4) CHF (congestive heart failure) Status: Acute (5) Depression Status: Acute
--- NOTE | 2018-02-26 08:55 | CP.PCM.PN ---
Subjective - Date & Time of Evaluation Date of Evaluation: 02/26/18 Time of Evaluation: 19:00 - Subjective Subjective: Pt seen and evaluated today on follow up this morning , still c/o headche, dizziness, she is anxious, she also feels discormfort in throat although she slept well, her cardiac enzymes x 3 neg so far, pt is for psych and cardio eval Objective - Vital Signs/Intake and Output Vital Signs (last 24 hours): Temp Pulse Resp BP Pulse Ox 98.0 F 81 20 100/67 97 02/26/18 08:20 02/26/18 08:20 02/26/18 08:20 02/26/18 08:20 02/26/18 08:20 Intake and Output: 02/26/18 02/26/18 06:59 18:59 Intake Total 360 Balance 360 - Medications Medications: Current Medications Albuterol (Ventolin Hfa 90 Mcg/Actuation (8 G)) 1 puff IH RQ4 PRN PRN Reason: Wheezing Alprazolam (Xanax) 2 mg PO BID [facility] Last Admin: 02/25/18 19:12 Dose: 2 mg Carvedilol (Coreg) 6.25 mg PO Q12 [facility] Last Admin: 02/25/18 22:15 Dose: Not Given Diphenhydramine HCl (Benadryl) 25 mg PO Q8 PRN PRN Reason: Itching / Pruritus Last Admin: 02/26/18 06:38 Dose: 25 mg Enoxaparin Sodium (Lovenox) 40 mg SC DAILY [facility] Furosemide (Lasix) 40 mg PO DAILY [facility] Gabapentin (Neurontin) 600 mg PO TID [facility] Last Admin: 02/25/18 19:00 Dose: 600 mg Home Med (Effexor) 250 mg PO DAILY [facility] Morphine Sulfate (Morphine) 0.5 mg IVP Q4 PRN PRN Reason: pain Last Admin: 02/26/18 06:38 Dose: 0.5 mg Spironolactone (Aldactone) 25 mg PO DAILY [facility] Zolpidem Tartrate (Ambien) 5 mg PO HS [facility] Last Admin: 02/25/18 22:51 Dose: 5 mg - Labs Labs: 02/26/18 07:07 02/26/18 07:07 PT 12.2 SECONDS (9.7-12.2) 02/25/18 06:18 INR 1.1 02/25/18 06:18 APTT 37 SECONDS (21-34) H 02/25/18 06:18 - Constitutional Appears: No Acute Distress - Head Exam Head Exam: ATRAUMATIC, NORMAL INSPECTION, NORMOCEPHALIC - Eye Exam Eye Exam: EOMI, Normal appearance, PERRL Pupil Exam: NORMAL ACCOMODATION, PERRL - Neck Exam Neck Exam: Full ROM, Normal Inspection. absent: Lymphadenopathy - Respiratory Exam Respiratory Exam: Clear to Ausculation Bilateral, NORMAL BREATHING PATTERN - Cardiovascular Exam Cardiovascular Exam: REGULAR RHYTHM, +S1, +S2. absent: Murmur - GI/Abdominal Exam GI & Abdominal Exam: Soft, Normal Bowel Sounds. absent: Tenderness - Neurological Exam Neurological Exam: Alert, Awake, CN II-XII Intact, Normal Gait, Oriented x3 - Psychiatric Exam Psychiatric exam: Anxious, Depressed Assessment and Plan (1) Chest discomfort Status: Acute (2) Dyspnea Status: Acute (3) Anxiety Status: Acute (4) CHF (congestive heart failure) Status: Acute (5) Depression Status: Acute (6) dilated cardiomyopathy Status: Acute
[2018-02-26] MEDS: Enoxaparin 40 mg Syringe SC SCH (09:34)
[2018-02-26] MEDS ORDERED: VENLAFAXINE PO SCH (10:00)
--- NOTE | 2018-02-26 11:25 | CP.PCM.CON ---
History of Present Illness - History of Present Illness History of Present Illness: Patient is a 42 uear old female with PMH dilated cardiomyopathy (nonischemic) s/ p AICD ([employer]) in [place] who presents with epigastric and throat pain. The patient states she had cardiac cath at [place] in August which is normal. She underwent biventricular AICD however by her description there has been difficulty in palcement of the left ventricular lead. She has had a total of three procedures since August and had a reported complication with associated hypotnesion. The patient states she does not have complete synchronization and may need apical lead placement. Review of Systems - Constitutional Constitutional: absent: As Per HPI, Anorexia, Chills, Daytime Sleepiness, Excessive Sweating, Fatigue, Fever, Frequent Falls, Headache, Increased Appetite , Lethargy, Malaise, Night Sweats, Snoring, Sleep Apnea, Weight Gain, Weight Loss, Weakness, Other - EENT Eyes: absent: As Per HPI, Blind Spots, Blurred Vision, Change in Vision, Decreased Night Vision, Diplopia, Discharge, Dry Eye, Exophthalmos, Floaters, Irritation, Itchy Eyes, Loss of Peripheral Vision, Pain, Photophobia, Requires Corrective Lenses, Sees Flashes, Spots in Vision, Tunnel Vision, Other Visual Disturbances, Loss of Vision, Other Ears: absent: As Per HPI, Decreased Hearing, Ear Discharge, Ear Pain, Tinnitus, Abnormal Hearing, Disequilibrium, Dizziness, Other Nose/Mouth/Throat: absent: As Per HPI, Epistaxis, Nasal Congestion, Nasal Discharge, Nasal Obstruction, Nasal Trauma, Nose Pain, Post Nasal Drip, Sinus Pain, Sinus Pressure, Bleeding Gums, Change in Voice, Dental Pain, Dry Mouth, Dysphagia, Halitosis, Hoarsness, Lip Swelling, Mouth Lesions, Mouth Pain, Odynophagia, Sore Throat, Throat Swelling, Tongue Swelling, Facial Pain, Neck Pain, Neck Mass, Other - Cardiovascular Cardiovascular: absent: As Per HPI, Acrocyanosis, Chest Pain, Chest Pain at Rest , Chest Pain with Activity, Claudication, Diaphoresis, Dyspnea, Dyspnea on Exertion, Edema, Irregular Heart Rhythm, Pain Radiating to Arm/Neck/Jaw, Leg Edema, Leg Ulcers, Lightheadedness, Orthopnea, Palpitations, Paroxysmal Nocturnal Dyspnea, Pedal Edema, Radiating Pain, Rapid Heart Rate, Slow Heart Rate, Syncope, Other - Respiratory Respiratory: Dyspnea - Gastrointestinal Gastrointestinal: Abdominal Pain - Genitourinary Genitourinary: absent: As Per HPI, Change in Urinary Stream, Difficulty Urinating, Dysuria, Flank Pain, Hematuria, Pyuria, Nocturia, Urinary Incontinence, Urinary Frequency, Urinary Hesitance, Urinary Urgency, Voiding Freq/Small Amts, Freq UTI, Hx Renal/Bladder Calculi, Hx /Renal Surgery, Bladder Distension, Other - Musculoskeletal Musculoskeletal: absent: As Per HPI, Abnormal Gait, Arthralgias, Atrophy, Back Pain, Deformity, Joint Swelling, Limited Range of Motion, Loss of Height, Muscle Cramps, Muscle Weakness, Myalgias, Neck Pain, Numbness, Radiating Pain into Limb, Stiffness, Tingling, Other - Integumentary Integumentary: absent: As Per HPI, Acne, Alopecia, Bleeding Lesions, Change in Hair, Change in Nails, Change in Pigmentation, Changing Lesions, Dry Skin, Erythema, Furuncle, Hirsutism, Lesions, New Lesions, Non-Healing Lesions, Photosensitivity, Pruritus, Rash, Skin Pain, Skin Ulcer, Sores, Striae, Swelling , Unusual Bruising, Wounds, Jaundice, Other - Neurological Neurological: absent: As Per HPI, Abnormal Gait, Abnormal Hearing, Abnormal Movements, Abnormal Speech, Behavioral Changes, Burning Sensations, Confusion, Convulsions, Disequilibrium, Dizziness, Numbness, Focal Weakness, Frequent Falls , Headaches, Lack of Coordination, Loss of Vision, Memory Loss, Paresthesias, Radicular Pain, Restless Legs, Sensory Deficit, Syncope, Tingling, Tremor, Vertigo, Weakness, Other Visual Disturbances, Other - Psychiatric Psychiatric: absent: As Per HPI, Abnormal Sleep Pattern, Anhedonia, Anxiety, Auditory Hallucinations, Behavioral Changes, Change in Appetite, Change in Libido, Confusion, Depression, Difficulty Concentrating, Hallucinations, Homicidal Ideation, Hopelessness, Irritability, Memory Loss, Mood Swings, Panic Attacks, Paranoia, Suicidal Ideation, Visual Hallucinations, Tactile Hallucinations, Other - Endocrine Endocrine: absent: As Per HPI, Change in Body Appearance, Change in Libido, Cold Intolorance, Deepening of Voice, Excessive Sweating, Fatigue, Flushing, Heat Intolorance, Increase in Ring/Shoe/Hat Size, Palpitations, Polydipsia, Polyphagia, Polyuria, Other - Hematologic/Lymphatic Hematologic: absent: As Per HPI, Easy Bleeding, Easy Bruising, Lymphadenopathy, Other Past Patient History - Infectious Disease Hx of Infectious Diseases: None - Past Medical History & Family History Past Medical History?: Yes - Past Social History Smoking Status: Never Smoked - CARDIAC Hx Cardia Arrhythmia: Yes Hx Congestive Heart Failure: Yes Hx Hypercholesterolemia: Yes Hx Hypertension: Yes - PULMONARY Hx Asthma: Yes - NEUROLOGICAL Hx Neurological Disorder: No - HEENT Hx HEENT Problems: No - RENAL Hx Chronic Kidney Disease: Yes - ENDOCRINE/METABOLIC Hx Endocrine Disorders: Yes Hx Systemic Lupus Erythematosus: Yes - HEMATOLOGICAL/ONCOLOGICAL Hx Blood Disorders: No - INTEGUMENTARY Hx Dermatological Problems: Yes Hx Eczema: Yes - MUSCULOSKELETAL/RHEUMATOLOGICAL Hx Musculoskeletal Disorders: Yes - GASTROINTESTINAL Hx Gastrointestinal Disorders: No - GENITOURINARY/GYNECOLOGICAL Hx Genitourinary Disorders: No - PSYCHIATRIC Hx Anxiety: Yes Hx Paranoia: Yes Hx Substance Use: No - SURGICAL HISTORY Hx Appendectomy: Yes Hx Cholecystectomy: Yes - ANESTHESIA Hx Anesthesia: Yes Hx Anesthesia Reactions: Yes (Developed rash 2and 1/2 weeks after hip surgery similair to now) Hx Malignant Hyperthermia: No Meds Allergies/Adverse Reactions: Allergies Allergy/AdvReac Type Severity Reaction Status Date / Time propofol Allergy Intermediate RASH Verified 01/27/17 12:38 enalapril Allergy Verified 05/09/17 01:52 hydroxychloroquine sulfate Allergy RASH Verified 01/25/17 13:17 [From Plaquenil] FRUITS Allergy Mild SHORTNESS Uncoded 01/25/17 13:17 OF BREATH "anastesia" Allergy RASH Uncoded 01/25/17 13:17 - Medications Medications: Current Medications Albuterol (Ventolin Hfa 90 Mcg/Actuation (8 G)) 1 puff IH RQ4 PRN PRN Reason: Wheezing Alprazolam (Xanax) 2 mg PO BID [facility] Last Admin: 02/26/18 09:34 Dose: 2 mg Carvedilol (Coreg) 6.25 mg PO Q12 [facility] Last Admin: 02/26/18 09:30 Dose: Not Given Diphenhydramine HCl (Benadryl) 25 mg PO Q8 PRN PRN Reason: Itching / Pruritus Last Admin: 02/26/18 06:38 Dose: 25 mg Enoxaparin Sodium (Lovenox) 40 mg SC DAILY [facility] Last Admin: 02/26/18 09:34 Dose: 40 mg Furosemide (Lasix) 40 mg PO DAILY [facility] Last Admin: 02/26/18 09:30 Dose: Not Given Gabapentin (Neurontin) 600 mg PO TID [facility] Last Admin: 02/26/18 09:35 Dose: 600 mg Home Med (Effexor) 250 mg PO DAILY [facility] Morphine Sulfate (Morphine) 0.5 mg IVP Q4 PRN PRN Reason: pain Last Admin: 02/26/18 06:38 Dose: 0.5 mg Spironolactone (Aldactone) 25 mg PO DAILY [facility] Last Admin: 02/26/18 09:30 Dose: Not Given Zolpidem Tartrate (Ambien) 5 mg PO [facility] Last Admin: 02/25/18 22:51 Dose: 5 mg Physical Exam - Constitutional Appears: Non-toxic - Head Exam Head Exam: NORMAL INSPECTION - Eye Exam Eye Exam: Normal appearance - ENT Exam ENT Exam: Mucous Membranes Moist - Neck Exam Neck exam: Positive for: Full Rom - Respiratory Exam Respiratory Exam: NORMAL BREATHING PATTERN - Cardiovascular Exam Cardiovascular Exam: REGULAR RHYTHM - GI/Abdominal Exam GI & Abdominal Exam: Normal Bowel Sounds - Rectal Exam Rectal Exam: Deferred - Extremities Exam Extremities exam: Positive for: pedal edema - Back Exam Back exam: NORMAL INSPECTION - Neurological Exam Neurological exam: Alert, Oriented x3 - Psychiatric Exam Psychiatric exam: Normal Affect - Skin Skin Exam: Normal Color Results - Vital Signs Recent Vital Signs: Last Vital Signs Temp 98.0 F 02/26/18 08:20 Pulse 81 02/26/18 08:20 Resp 20 02/26/18 08:20 BP 100/67 02/26/18 08:20 Pulse Ox 97 02/26/18 08:20 - Labs Result Diagrams: 02/26/18 07:07 02/26/18 07:07 Labs: Laboratory Results - last 24 hr 02/25/18 02/25/18 02/26/18 17:05 22:32 07:07 WBC 10.2 RBC 4.01 Hgb 10.6 L Hct 31.3 L MCV 78.2 L MCH 26.4 L MCHC 33.7 RDW 14.9 H Plt Count 346 MPV 8.7 Sodium Potassium Chloride Carbon Dioxide Anion Gap BUN Creatinine Est GFR ( Amer) Est GFR (Non-Af Amer) Random Glucose Calcium Total Creatine Kinase 136 H 119 CK-MB (Mass) 0.31 0.24 Troponin I < 0.0120 < 0.0120 02/26/18 07:07 WBC RBC Hgb Hct MCV MCH MCHC RDW Plt Count MPV Sodium 143 Potassium 3.6 Chloride 105 Carbon Dioxide 26 Anion Gap 15 BUN 17 Creatinine 0.6 L Est GFR ( Amer) > 60 Est GFR (Non-Af Amer) > 60 Random Glucose 94 Calcium 8.7 Total Creatine Kinase CK-MB (Mass) Troponin I - EKG Data EKG Interpreted by: Myself EKG shows normal: Sinus rhythm Assessment & Plan (1) Acute on chronic systolic and diastolic heart failure, NYHA class 3 Assessment and Plan: patient's symptoms likely not due to CAD. SHe has no CAD. Her presentation is not consistent with angina. medical therapy Status: Acute (2) CHF (congestive heart failure) Assessment and Plan: not in heart failure at this time. Status: Acute
--- NOTE | 2018-02-27 02:17 | CP.PCM.PN ---
Subjective - Date & Time of Evaluation Date of Evaluation: 02/27/18 Time of Evaluation: 16:00 - Subjective Subjective: pt seen and examined at bedside, no sob or chest pains now, NAD. she is anxious, she also feels discormfort in throat although she slept well, her cardiac enzymes x 3 neg so far, pt is for psych and cardio eval Objective - Vital Signs/Intake and Output Vital Signs (last 24 hours): Temp Pulse Resp BP Pulse Ox 98.0 F 98 H 20 97/63 L 96 02/26/18 15:04 02/26/18 23:30 02/26/18 15:04 02/26/18 22:10 02/26/18 16:00 Intake and Output: 02/26/18 02/27/18 18:59 06:59 Intake Total 600 Balance 600 - Medications Medications: Current Medications Albuterol (Ventolin Hfa 90 Mcg/Actuation (8 G)) 1 puff IH RQ4 PRN PRN Reason: Wheezing Alprazolam (Xanax) 2 mg PO BID [facility] Last Admin: 02/26/18 18:19 Dose: 2 mg Carvedilol (Coreg) 6.25 mg PO Q12 [facility] Last Admin: 02/26/18 22:09 Dose: 6.25 mg Diphenhydramine HCl (Benadryl) 25 mg PO Q8 PRN PRN Reason: Itching / Pruritus Last Admin: 02/26/18 16:11 Dose: 25 mg Enoxaparin Sodium (Lovenox) 40 mg SC DAILY [facility] Last Admin: 02/26/18 09:34 Dose: 40 mg Furosemide (Lasix) 40 mg PO DAILY [facility] Last Admin: 02/26/18 09:30 Dose: Not Given Gabapentin (Neurontin) 600 mg PO TID [facility] Last Admin: 02/26/18 18:19 Dose: 600 mg Home Med (Effexor) 250 mg PO DAILY [facility] Morphine Sulfate (Morphine) 0.5 mg IVP Q4 PRN PRN Reason: pain Last Admin: 02/26/18 20:56 Dose: 0.5 mg Spironolactone (Aldactone) 25 mg PO DAILY [facility] Last Admin: 02/26/18 09:30 Dose: Not Given Zolpidem Tartrate (Ambien) 5 mg PO HS [facility] Last Admin: 02/26/18 22:09 Dose: 5 mg - Labs Labs: 02/26/18 07:07 02/26/18 07:07 PT 12.2 SECONDS (9.7-12.2) 02/25/18 06:18 INR 1.1 02/25/18 06:18 APTT 37 SECONDS (21-34) H 02/25/18 06:18 Assessment and Plan (1) Chest discomfort Status: Acute (2) Dyspnea Status: Acute (3) Anxiety Status: Acute (4) CHF (congestive heart failure) Status: Acute (5) Depression Status: Acute (6) dilated cardiomyopathy Status: Acute
[2018-02-27] MEDS: Morphine 4 MG/ML VIAL IVP PRN ×4 (05:22→20:24)
--- NOTE | 2018-02-27 08:44 | CP.PCM.PN ---
Subjective - Date & Time of Evaluation Date of Evaluation: 02/27/18 Time of Evaluation: 08:30 - Subjective Subjective: has subjective throat discomfort. Objective - Vital Signs/Intake and Output Vital Signs (last 24 hours): Temp Pulse Resp BP Pulse Ox 98.2 F 90 18 90/60 L 95 02/27/18 05:00 02/27/18 05:00 02/27/18 05:00 02/27/18 05:00 02/27/18 05:00 - Medications Medications: Current Medications Albuterol (Ventolin Hfa 90 Mcg/Actuation (8 G)) 1 puff IH RQ4 PRN PRN Reason: Wheezing Alprazolam (Xanax) 2 mg PO BID [facility] Last Admin: 02/26/18 18:19 Dose: 2 mg Carvedilol (Coreg) 6.25 mg PO Q12 [facility] Last Admin: 02/26/18 22:09 Dose: 6.25 mg Diphenhydramine HCl (Benadryl) 25 mg PO Q8 PRN PRN Reason: Itching / Pruritus Last Admin: 02/27/18 05:22 Dose: 25 mg Enoxaparin Sodium (Lovenox) 40 mg SC DAILY [facility] Last Admin: 02/26/18 09:34 Dose: 40 mg Furosemide (Lasix) 40 mg PO DAILY [facility] Last Admin: 02/26/18 09:30 Dose: Not Given Gabapentin (Neurontin) 600 mg PO TID [facility] Last Admin: 02/26/18 18:19 Dose: 600 mg Home Med (Effexor) 250 mg PO DAILY [facility] Morphine Sulfate (Morphine) 0.5 mg IVP Q4 PRN PRN Reason: pain Last Admin: 02/27/18 05:22 Dose: 0.5 mg Spironolactone (Aldactone) 25 mg PO DAILY [facility] Last Admin: 02/26/18 09:30 Dose: Not Given Zolpidem Tartrate (Ambien) 5 mg PO HS [facility] Last Admin: 02/26/18 22:09 Dose: 5 mg - Labs Labs: 02/26/18 07:07 02/26/18 07:07 PT 12.2 SECONDS (9.7-12.2) 02/25/18 06:18 INR 1.1 02/25/18 06:18 APTT 37 SECONDS (21-34) H 02/25/18 06:18 - Constitutional Appears: Non-toxic - Head Exam Head Exam: NORMAL INSPECTION - Eye Exam Eye Exam: Normal appearance - ENT Exam ENT Exam: Mucous Membranes Moist - Neck Exam Neck Exam: Full ROM - Respiratory Exam Respiratory Exam: NORMAL BREATHING PATTERN - Cardiovascular Exam Cardiovascular Exam: REGULAR RHYTHM - GI/Abdominal Exam GI & Abdominal Exam: Normal Bowel Sounds - Rectal Exam Rectal Exam: Deferred - Extremities Exam Extremities Exam: absent: Pedal Edema - Back Exam Back Exam: NORMAL INSPECTION - Neurological Exam Neurological Exam: Alert - Psychiatric Exam Psychiatric exam: Normal Affect - Skin Skin Exam: Normal Color Assessment and Plan (1) Acute on chronic systolic and diastolic heart failure, NYHA class 3 Assessment & Plan: appears euvolemic. has non ischemic CAD. no CAD from cath in August. symptoms are not due to angina. Status: Acute (2) CHF (congestive heart failure) Status: Acute
[2018-02-27] MEDS: Enoxaparin 40 mg Syringe SC SCH (10:08)
[2018-02-28] MEDS ORDERED: Simethicone 40 mg/0.6 ml Liquid (30 ml) ONE (07:53)
[2018-02-28] MEDS: Morphine 4 MG/ML VIAL IVP PRN ×3 (08:18→17:00)
[2018-02-28] MEDS: Enoxaparin 40 mg Syringe SC SCH (10:04)
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
[2018-02-28 16:30] VITALS: BP 88/56; RESP 18; TEMP 98.2; O2SAT 95
--- NOTE | 2018-02-28 17:35 | PCM.HF ---
Heart Failure Core Measure - Heart Failure Ejection Fraction: Less Than 40 % (EF 25-30%) MELINDA Inhibitor Prescribed: No Contraindication/Reason for not providing: low BP Beta-Piotr Prescribed: Carvedilol Angiotensin II Receptor Piotr Prescribed: No Contraindication/Reason for not providing: low BP AnticoagulationTherapy for Atrial Fibrillation/Atrialflutter: No Contraindication/Reason for not providing: LOW BP Aldosterone Antagonist Prescribed: Yes Hydralazine Nitrate Prescribed: No Contraindication/Reason for not providing: low bp Implantable Cardioverter Defibrillator Therapy: Yes Cardiac Resynchronization Therapy Prescribed: No Contraindication/Reason for not providing: not indicated - Follow up Will be discharged to: Home Follow Up Date (must be within 7 days from discharge): 03/04/18 Follow Up Time: 09:00
--- NOTE | 2018-02-28 17:46 | CP.PCM.PN ---
Subjective - Date & Time of Evaluation Date of Evaluation: 02/28/18 Time of Evaluation: 17:46 - Subjective Subjective: Alert, oroentedx3, no sob or chest pains now, NAD. Objective - Vital Signs/Intake and Output Vital Signs (last 24 hours): Temp Pulse Resp BP Pulse Ox 98.2 F 108 H 18 88/56 L 95 02/28/18 15:00 02/28/18 15:00 02/28/18 15:00 02/28/18 15:00 02/28/18 15:00 - Medications Medications: Current Medications Albuterol (Ventolin Hfa 90 Mcg/Actuation (8 G)) 1 puff IH RQ4 PRN PRN Reason: Wheezing Alprazolam (Xanax) 1 mg PO BID [facility] Last Admin: 02/28/18 17:10 Dose: 1 mg Carvedilol (Coreg) 6.25 mg PO Q12 [facility] Last Admin: 02/28/18 10:05 Dose: 6.25 mg Diphenhydramine HCl (Benadryl) 25 mg PO Q8 PRN PRN Reason: Itching / Pruritus Last Admin: 02/28/18 13:59 Dose: 25 mg Enoxaparin Sodium (Lovenox) 40 mg SC DAILY [facility] Last Admin: 02/28/18 10:04 Dose: 40 mg Furosemide (Lasix) 40 mg PO DAILY [facility] Last Admin: 02/28/18 10:05 Dose: 40 mg Gabapentin (Neurontin) 600 mg PO TID [facility] Last Admin: 02/28/18 17:10 Dose: 600 mg Morphine Sulfate (Morphine) 0.5 mg IVP Q4 PRN PRN Reason: pain Last Admin: 02/28/18 17:00 Dose: 0.5 mg Spironolactone (Aldactone) 25 mg PO DAILY [facility] Last Admin: 02/28/18 10:05 Dose: 25 mg Zolpidem Tartrate (Ambien) 5 mg PO HS [facility] Last Admin: 02/27/18 22:03 Dose: 5 mg - Labs Labs: 02/26/18 07:07 02/26/18 07:07 PT 12.2 SECONDS (9.7-12.2) 02/25/18 06:18 INR 1.1 02/25/18 06:18 APTT 37 SECONDS (21-34) H 02/25/18 06:18 Assessment and Plan - Assessment and Plan (Free Text) Assessment: Patient is seen and examined, on observation 4days, called by telehealth case manager. Alert and oriented x3, able to ambulate freely, no sob or chest pains. Has been on medications for anxiety. Cleared by pai gow manager, has CHF, stable now , discussed with DR Vidal, advised to discharge home today and follow up with her cardiologyst in [facility]. Patient complaints of heart bullock, advised to take the prilosec daily which she already has at home. Will follow up with DR Vidal as needed.
[2018-02-28 18:18] VITALS: PULSE 106
--- NOTE | 2018-03-01 00:30 | CP.PCM.DIS ---
Provider - Provider Date of Admission: 02/25/18 09:42 Attending physician: Dontae Vidal MD Time Spent in preparation of Discharge (in minutes): 45 Diagnosis - Discharge Diagnosis (1) Chest discomfort Status: Acute (2) Dyspnea Status: Acute (3) Anxiety Status: Acute (4) CHF (congestive heart failure) Status: Acute (5) Depression Status: Acute (6) dilated cardiomyopathy Status: Acute Hospital Course - Lab Results Lab Results: Most Recent Lab Values WBC 10.2 K/uL (4.8-10.8) 02/26/18 07:07 RBC 4.01 Mil/uL (3.80-5.20) 02/26/18 07:07 Hgb 10.6 g/dL (11.0-16.0) L 02/26/18 07:07 Hct 31.3 % (34.0-47.0) L 02/26/18 07:07 MCV 78.2 fL (81.0-99.0) L 02/26/18 07:07 MCH 26.4 pg (27.0-31.0) L 02/26/18 07:07 MCHC 33.7 g/dL (33.0-37.0) 02/26/18 07:07 RDW 14.9 % (11.5-14.5) H 02/26/18 07:07 Plt Count 346 K/uL (130-400) 02/26/18 07:07 MPV 8.7 fL (7.2-11.7) 02/26/18 07:07 Neut % (Auto) 86.9 % (50.0-75.0) H 02/25/18 06:18 Lymph % (Auto) 8.0 % (20.0-40.0) L 02/25/18 06:18 [place]an % (Auto) 4.7 % (0.0-10.0) 02/25/18 06:18 Eos % (Auto) 0.0 % (0.0-4.0) 02/25/18 06:18 Baso % (Auto) 0.4 % (0.0-2.0) 02/25/18 06:18 Neut # (Auto) 11.5 K/uL (1.8-7.0) H 02/25/18 06:18 Lymph # (Auto) 1.1 K/uL (1.0-4.3) 02/25/18 06:18 Rowan # (Auto) 0.6 K/uL (0.0-0.8) 02/25/18 06:18 Eos # (Auto) 0.0 K/uL (0.0-0.7) 02/25/18 06:18 Baso # (Auto) 0.1 K/uL (0.0-0.2) 02/25/18 06:18 Neutrophils % (Manual) 84 % (50-75) H 02/25/18 06:18 Lymphocytes % (Manual) 10 % (20-40) L 02/25/18 06:18 Monocytes % (Manual) 6 % (0-10) 02/25/18 06:18 Platelet Estimate Normal (NORMAL) 02/25/18 06:18 PT 12.2 SECONDS (9.7-12.2) 02/25/18 06:18 INR 1.1 02/25/18 06:18 APTT 37 SECONDS (21-34) H 02/25/18 06:18 D-Dimer, Quantitative 537 ng/mlDDU (0-243) H 02/25/18 06:31 Sodium 143 mmol/L (132-148) 02/26/18 07:07 Potassium 3.6 mmol/L (3.6-5.2) 02/26/18 07:07 Chloride 105 mmol/L (98-107) 02/26/18 07:07 Carbon Dioxide 26 mmol/L (22-30) 02/26/18 07:07 Anion Gap 15 (10-20) 02/26/18 07:07 BUN 17 mg/dL (7-17) 02/26/18 07:07 Creatinine 0.6 mg/dL (0.7-1.2) L 02/26/18 07:07 Est GFR ( Amer) > 60 02/26/18 07:07 Est GFR (Non-Af Amer) > 60 02/26/18 07:07 Random Glucose 94 mg/dL (65-105) 02/26/18 07:07 Calcium 8.7 mg/dl (8.6-10.4) 02/26/18 07:07 Total Bilirubin 0.8 mg/dL (0.2-1.3) 02/25/18 06:18 AST 22 U/L (14-36) 02/25/18 06:18 ALT < 6 U/L (9-52) L D 02/25/18 06:18 Alkaline Phosphatase 74 U/L (38-126) 02/25/18 06:18 Total Creatine Kinase 119 U/L (30-135) 02/25/18 22:32 CK-MB (Mass) 0.24 ng/mL (0.0-3.38) 02/25/18 22:32 Troponin I < 0.0120 ng/mL (0.00-0.120) 02/25/18 22:32 Total Protein 8.7 g/dL (6.3-8.3) H 02/25/18 06:18 Albumin 4.3 g/dL (3.5-5.0) 02/25/18 06:18 Globulin 4.4 gm/dL (2.2-3.9) H 02/25/18 06:18 Albumin/Globulin Ratio 1.0 (1.0-2.1) 02/25/18 06:18 Urine Color Yellow (YELLOW) 02/25/18 07:04 Urine Clarity Clear (Clear) 02/25/18 07:04 Urine pH 6.0 (5.0-8.0) 02/25/18 07:04 Ur Specific [place] 1.017 (1.003-1.030) 02/25/18 07:04 Urine Protein Negative mg/dL (NEGATIVE) 02/25/18 07:04 Urine Glucose (UA) Normal mg/dL (Normal) 02/25/18 07:04 Urine Ketones Negative mg/dL (NEGATIVE) 02/25/18 07:04 Urine Blood Negative (NEGATIVE) 02/25/18 07:04 Urine Nitrate Negative (NEGATIVE) 02/25/18 07:04 Urine Bilirubin Negative (NEGATIVE) 02/25/18 07:04 Urine Urobilinogen Normal mg/dL (0.2-1.0) 02/25/18 07:04 Ur Leukocyte Esterase Neg [place]/uL (Negative) 02/25/18 07:04 Urine WBC (Auto) 2 /hpf (0-5) 02/25/18 07:04 Urine RBC (Auto) 1 /hpf (0-3) 02/25/18 07:04 Ur Squamous Epith Cells 3 /hpf (0-5) 02/25/18 07:04 - Hospital Course Hospital Course: Patient is seen and examined, denies any chest pain, is stable for discharge today, she is more Alert and oriented x3, able to ambulate freely, no sob or chest pains. Has been on medications for anxiety. 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 Patient complaints of heart bullock, advised to take the prilosec daily which she already has at home. [facility] [place] [facility]. Discharge Exam - Head Exam Head Exam: NORMAL INSPECTION - Eye Exam Eye Exam: EOMI, Normal appearance, PERRL Pupil Exam: NORMAL ACCOMODATION, PERRL - ENT Exam ENT Exam: Mucous Membranes Moist - Respiratory Exam Respiratory Exam: Decreased Breath Sounds, Rales - Cardiovascular Exam Cardiovascular Exam: REGULAR RHYTHM, +S1, +S2 - GI/Abdominal Exam GI & Abdominal Exam: Normal Bowel Sounds Discharge Plan - Discharge Medications Prescriptions: Omeprazole 40 mg PO DAILY 30 Days capsule.dr - Follow Up Plan Condition: FAIR Disposition: HOME/ ROUTINE Instructions: Heart Healthy Diet, Heart Failure, Adult (DC), Chest Pain (DC), Omeprazole Additional Instructions: FOLLOW UP WITH PMD IN 1 WEEK CONTINUE WITH PRESENT MEDS Referrals: Dontae Vidal MD [Staff Provider] -
== END 2018-02-28 19:44 | disposition home or self-care (01) ==
LOC: C.ER 05:42 → C.9E 09:42 → C.6T 14:21
PROVIDERS: ADMIT Internal Medicine; ATTEND Internal Medicine
DX: R07.89 Other chest pain (principal); I50.43 Acute on chronic combined systolic (congestive) and diastolic (congestive) heart failure; O90.3 Peripartum cardiomyopathy; J45.909 Unspecified asthma, uncomplicated; F41.1 Generalized anxiety disorder; F33.1 Major depressive disorder, recurrent, moderate; M79.7 Fibromyalgia; N18.9 Chronic kidney disease, unspecified; I13.0 Hypertensive heart and chronic kidney disease with heart failure and stage 1 through stage 4 chronic kidney disease, or unspecified chronic kidney disease; E78.00 Pure hypercholesterolemia, unspecified; Z82.49 Family history of ischemic heart disease and other diseases of the circulatory system; Z95.810 Presence of automatic (implantable) cardiac defibrillator; M32.9 Systemic lupus erythematosus, unspecified; Z88.8 Allergy status to other drugs, medicaments and biological substances; Z91.018 Allergy to other foods; Z88.4 Allergy status to anesthetic agent; M19.90 Unspecified osteoarthritis, unspecified site; Z81.8 Family history of other mental and behavioral disorders; I42.0 Dilated cardiomyopathy
CPT/HCPCS: 36415; 71045; 71275; 80048; 80053; 81001; 84484; 85025; 85027; 85378; 85610; 85730; 99285; G0378; J1650; J2270; Q9967

== ENCOUNTER 2018-04-19 12:51 | Emergency (ER) | payer MEDICARE ==
[2018-04-19 12:51] VITALS: PULSE 79
[2018-04-19 12:59] VITALS: BMI 30.8
[2018-04-19 14:13] LABS: BASO # 0.1 K/uL (0.0-0.2); BASO % 0.9 % (0.0-2.0); EOS # 0.2 K/uL (0.0-0.7); EOS % 1.6 % (0.0-4.0); HEMOGLOBIN 13.6 g/dL (11.0-16.0); LYMPH % 16.8 % (20.0-40.0); MEAN CELL VOLUME 78.2 fL (81.0-99.0); MEAN CORPUSCULAR HEMOGLOBIN 26.2 pg (27.0-31.0); MEAN CORPUSCULAR HGB CONC 33.5 g/dL (33.0-37.0); MEAN PLATELET VOLUME 8.8 fL (7.2-11.7); MONO # 0.9 K/uL (0.0-0.8); MONO % 7.9 % (0.0-10.0); NEUT # 8.7 K/uL (1.8-7.0); NEUT % 72.8 % (50.0-75.0); RBC 5.18 Mil/uL (3.80-5.20); RED CELL DISTRIBUTION WIDTH 15.9 % (11.5-14.5); WHITE BLOOD COUNT 11.9 K/uL (4.8-10.8)
[2018-04-19 14:24] LABS: INR 1.1; PROTHROMBIN TIME 12.3 SECONDS (9.7-12.2)
[2018-04-19 14:27] LABS: ALB/GLOB RATIO 1.1 (1.0-2.1); ALBUMIN 4.2 g/dL (3.5-5.0); ALT/SGPT 19 U/L (9-52); AST/SGOT 17 U/L (14-36); BLOOD UREA NITROGEN 14 mg/dL (7-17); CALCIUM 9.6 mg/dl (8.6-10.4); GFR AFRICAN-AMERICAN > 60; GFR NON-AFRICAN AMERICAN > 60
[2018-04-19 14:39] LABS: B-TYPE NATRIURETIC PEPTIDE 695 pg/mL (0-450)
[2018-04-19] MEDS ORDERED: Iohexol 350mg/ml 100 ML ONE (14:50)
--- NOTE | 2018-04-19 17:24 | CT ---
PROCEDURE: CT Chest with contrast (Pulmonary Angiogram) HISTORY: SOB. h/o CHF, . r/o PE. COMPARISON: 09/17/2015, 02/25/2018. Serial CT pulmonary angiogram TECHNIQUE: Axial computed tomography images were obtained of the chest in the pulmonary arterial phase of enhancement. Coronal and sagittal reformatted images were created and reviewed. Maximum intensity projection (MIP) reconstructed images in the following planes: Intravenous contrast dose: 100 cc Visipaque 320. Mean Hounsfield unit values in the main pulmonary artery: 352.77 Radiation dose: Total exam DLP = 4001.45 mGy-cm. This CT exam was performed using one or more of the following dose reduction techniques: Automated exposure control, adjustment of the mA and/or kV according to patient size, and/or use of iterative reconstruction technique. FINDINGS: PULMONARY ARTERIES: Unremarkable. No pulmonary embolism. AORTA: No acute findings. No thoracic aortic aneurysm. LUNGS: Unremarkable. No nodule, mass or pulmonary consolidation. PLEURAL SPACES: Unremarkable. No effusion or pneuomothorax. HEART: Unremarkable. No cardiomegaly. No significant pericardial effusion. LYMPH NODES: No lymphadenopathy. BONES, CHEST WALL: Unremarkable. No fracture or destructive lesion OTHER FINDINGS: Unremarkable. IMPRESSION: Unremarkable CT pulmonary angiogram. No pulmonary embolus. No significant interval change compared to the prior examination(s).
--- NOTE | 2018-04-19 17:33 | C.PDOC ---
Time Seen by Provider: 04/19/18 13:48 Chief Complaint (Nursing): Shortness Of Breath History Per: Patient Onset/Duration Of Symptoms: Days Current Symptoms Are (Timing): Still Present Current Respiratory Medications: See Home Med List Severity: Moderate Associated Symptoms: Anxiety Reports Recently: Treated By A Physician Additional History Per: Prior Records Past Medical History Reviewed: Historical Data, Nursing Documentation, Vital Signs Vital Signs: Last Vital Signs Temp 98.6 F 04/19/18 12:59 Pulse 75 04/19/18 16:41 Resp 16 04/19/18 16:41 BP 92/53 L 04/19/18 16:41 Pulse Ox 94 L 04/19/18 17:33 - Medical History PMH: Anxiety, Asthma (denies), Cardia Arrhythmia, CHF, Fibromyalgia, HTN, Hypercholesterolemia, Paranoia, Chronic Kidney Disease Surgical History: Appendectomy, Cholecystectomy, Pacemaker Other Surgeries: Hysterectomy - [facility] Procedures OCCUPATIONAL THERAPY (02/09/14) PHYSICAL THERAPY NEC (02/03/14) Family History: States: Unknown Family Hx, Diabetes, Hypertension - Social History Hx Tobacco Use: No Hx Alcohol Use: No Hx Substance Use: No - Immunization History Hx Tetanus Toxoid Vaccination: No Hx Influenza Vaccination: No Hx Pneumococcal Vaccination: No Review Of Systems Except As Marked, All Systems Reviewed And Found Negative. Constitutional: Negative for: Fever ENT: Positive for: Other (Feels tightness in neck/throat area). Negative for: Throat Pain Cardiovascular: Negative for: Chest Pain Respiratory: Positive for: Shortness of Breath. Negative for: Hemoptysis Gastrointestinal: Negative for: Vomiting, Abdominal Pain Skin: Negative for: Rash Neurological: Negative for: Weakness, Numbness Physical Exam - Physical Exam Appears: Non-toxic, No Acute Distress Skin: Normal Color, Warm, Dry Head: Atraumatic, Normacephalic Eye(s): bilateral: Normal Inspection, PERRL, EOMI Oral Mucosa: Moist, No Drooling, No Trismus Throat: Normal Neck: Normal ROM, Supple Cardiovascular: Rhythm Regular Respiratory: Normal Breath Sounds, No Accessory Muscle Use Gastrointestinal/Abdominal: Soft, No Tenderness Extremity: Normal ROM, No Pedal Edema, No Calf Tenderness Neurological/Psych: Oriented x3, Normal Speech, Normal Motor, Normal Sensation ED Course And Treatment - Laboratory Results Result Diagrams: 04/19/18 14:10 04/19/18 14:10 Lab Interpretation: No Changes Compared To Prior Results ECG: Interpreted By Me, Viewed By Me ECG Rhythm: AV Paced, Nonspecific Changes ECG Interpretation: No Acute Changes Rate From EC O2 Sat by Pulse Oximetry: 98 Pulse Ox Interpretation: Normal - CT Scan/US CTA of chest Other Rad Studies (CT/US): Read By Radiologist, Radiology Report Reviewed CT/US Interpretation: IMPRESSION: Unremarkable CT pulmonary angiogram. No pulmonary embolus. No significant interval change compared to the prior examination(s). Disposition Discussed With Dr.: Dontae Vidal (PMD) Comment: I discussed with him the pt's presentation and test results. He wants pt to be discharged home since CTA is negative. He believes symptoms are related to anxiety. Doctor Will See Patient In The: Office Counseled Patient/Family Regarding: Studies Performed, Diagnosis, Need For Followup, Rx Given - Disposition Referrals: Dontae Vidal MD [Staff Provider] - Disposition: HOME/ ROUTINE Disposition Time: 17:44 Condition: FAIR Additional Instructions: Follow up with your doctor for further evaluation and treatment. Return to the ER if you develop worsening of symptoms or if you have any other concerns. Prescriptions: hydrOXYzine HCl [Atarax] 50 mg PO Q6 PRN #30 tab PRN Reason: Anxiety Instructions: Shortness of Breath (Dyspnea) (DC) Forms: [facility] (Persian) - Clinical Impression Clinical Impression: Dyspnea
[2018-04-19 18:03] VITALS: BP 118/69; PULSE 69; RESP 14; TEMP 98.5; O2SAT 95
--- NOTE | 2018-04-20 22:34 | CARD ---
APPROVED REPORT EKG Measurement Heart [id number] <Conclusion> Atrial-sensed ventricular-paced rhythm Abnormal ECG
== END 2018-04-19 18:05 | disposition home or self-care (01) ==
LOC: C.ER 12:51
DX: R06.00 Dyspnea, unspecified (principal); E78.00 Pure hypercholesterolemia, unspecified; I12.9 Hypertensive chronic kidney disease with stage 1 through stage 4 chronic kidney disease, or unspecified chronic kidney disease; N18.9 Chronic kidney disease, unspecified; M79.7 Fibromyalgia
CPT/HCPCS: 71275; 80053; 83735; 83880; 84484; 85025; 85378; 85610; 85730; 93005; 99285; Q9967